=== PATIENT | female | born 1955 | race Caucasian/White ===

== ENCOUNTER 2016-08-31 07:45 | Inpatient (IN) ==
[2016-08-31] MEDS ORDERED: SODIUM CHLORIDE 0.9% 1,000 ML IV STA (08:19)
[2016-08-31] MEDS ORDERED: LOPERAMIDE 2 MG CAPSULE PO STA (08:19)
[2016-08-31] MEDS ORDERED: HYDROmorphone 2 MG/1 ML VIAL IV STA (08:19)
[2016-08-31] MEDS ORDERED: ONDANSETRON 4 MG/2 ML VIAL IV STA (08:19)
[2016-08-31] MEDS ORDERED: PROMETHAZINE 25 MG/1 ML VIAL IM STA (08:42)
[2016-08-31] MEDS ORDERED: MEPERIDINE 25 MG/1 ML VIAL IV STA (08:44)
[2016-08-31] MEDS ORDERED: MEPERIDINE 25 MG/1 ML VIAL ONE (08:47)
[2016-08-31] MEDS ORDERED: PROMETHAZINE 25 MG/1 ML VIAL ONE (08:47)
--- NOTE | 2016-08-31 08:50 | Emergency Department Note ---
Isaac Park Meredith, am scribing for, and in the presence of, Mazin Lenz MD 08: 18. Yoanna Park James D, MD, personally performed the services described in this documentation, ascribed by Reina Gray in my presence, and it is both accurate and complete [id number] . Arrival - Arrival Chief Complaint: Nausea/Vomiting/Diarrhea Stated Complaint: arms tingling,n/v,fever,chills ED Nursing Triage Note: n/v/d that started last night with abd cramping and chills. has a hx of mastacitic colitis. Mode of Arrival: Ambulatory Limitations: No Limitations Source: Patient, Old Records Reviewed, RN Notes Reviewed Time Seen by Provider: 08/31/16 08:17 - History of Present Illness HPI Narrative: Pt is a 61 y/o white female reporting to the ED with c/o nausea, vomiting, and diarrhea which onset last night. She confirms abdominal cramping and chills but denies any hematochezia, melena, or hematemesis. Pt has a history of HTN, ulcerative colitis, colon cancer, and mast cell disease. Onset (ago): hour(s) Consistency: intermittent Quality: cramping Allergies/Adverse Reactions: Allergies Allergy/AdvReac Type Severity Reaction Status Date / Time acetaminophen [From Lortab] Allergy Severe RASH Verified 07/10/15 20:20 butorphanol [From Stadol] Allergy Severe Headache Verified 07/10/15 20:20 hydrocodone [From Lortab] Allergy Severe RASH Verified 07/10/15 20:20 Hydromorphone [From Dilaudid] Allergy Severe Headache Verified 07/10/15 20:20 ketorolac [From Toradol] Allergy Severe RASH Verified 07/10/15 20:20 morphine Allergy Severe Headache Verified 07/10/15 20:20 ondansetron Allergy Severe RASH Verified 07/10/15 20:20 [From Zofran (as hydrochloride)] Sulfa (Sulfonamide Allergy Severe RASH Verified 07/10/15 20:20 Antibiotics) levothyroxine sodium Allergy Fever Verified 07/10/15 20:20 [From Synthroid] Home Medications: Home Medications Medication Instructions Recorded Confirmed Type Budesonide Cap [Entocort EC] 3 mg PO TID 04/16/15 08/31/16 History Cyclobenzaprine [Flexeril] 10 mg PO BEDTIME 04/16/15 08/31/16 History Dicyclomine Cap/Tab [Bentyl 10 mg PO TID 04/16/15 08/31/16 History Cap/Tab] Cyanocobalamin (Vitamin B-12) 1,000 mcg IJ Q28D 04/13/16 08/31/16 History [Cyanocobalamin Injection] Lisinopril 20 mg PO DAILY 04/13/16 08/31/16 History Zolpidem Tartrate 10 mg PO BEDTIME 04/13/16 08/31/16 History Famotidine Tab [Pepcid Tab] 20 mg PO BID tablet 04/27/16 08/31/16 Rx Meperidine Tab [Demerol Tab] 50 mg PO Q6H PRN #0 tablet 04/27/16 08/31/16 Rx PARoxetine [Paxil] 10 mg PO DAILY #30 tablet 04/27/16 08/31/16 Rx Pantoprazole Tab [Protonix Tab] 40 mg PO DAILY #30 tablet 04/27/16 08/31/16 Rx Promethazine Tab [Phenergan Tab] 25 mg PO Q6H PRN #20 tablet 04/27/16 08/31/16 Rx Cetirizine Tab [ZyrTEC Tab] 10 mg PO DAILY PRN 08/31/16 08/31/16 History Review of System - Review of System 12 point system: reviewed and no additional remarkable complaints except as stated - Review of System Constitutional: Present: as per HPI, chills Gastrointestinal: Present: as per HPI, abdominal pain (cramping), nausea, vomiting, diarrhea. Absent: hematemesis, melena, hematochezia Medical,Surgical,& Family Hx - Medical History Cardio: History of: Hypertension Gastrointestinal: History of: Ulcerative Colitis, GI Problems (colon ca) Other: History of: Miscellaneous Medical Problems (MAST CELL DISEASE) - Family History Family History: Reports;: Family Heart Disease - Social History Smoking Status: Never smoker Exam Physical Examination: GENERAL: This is a well-nourished, well-developed female in no apparent distress. VITAL SIGNS: Temperature: 98.7, Pulse: 92, Respirations: 18, Blood pressure: 138 /90, O2 Saturation: 96 HEENT: Head is normocephalic and atraumatic. Pupils are equally round and reactive to light. Extraocular movement are intact. Dry mucous membranes. NECK: Neck is soft and supple without tenderness. There are no masses. There is no lymphadenopathy. LUNGS: Lungs are clear to auscultation bilaterally. Chest rises symmetrically. There is no chest wall tenderness. CV: Heart is regular rate and rhythm without murmurs, rubs, or gallops. ABDOMEN: Abdomen is soft with minimal tenderness. There are no abnormal masses palpated. There is no organomegaly. Bowel sounds are present and active. SKIN: Skin is warm and dry. No rash. EXTREMITIES: Patient has full range of motion without tenderness. There is no pedal edema. NEUROLOGIC: Awake, alert, and oriented x4. Cranial nerves II through XII are grossly intact. There are no motorsensory deficits. PSYCHIATRIC: Normal affect. Normal mood. Vital Signs: Vital Signs Temperature 98.7 F 08/31/16 09:22 Pulse Rate 74 08/31/16 10:27 Respiratory Rate 16 08/31/16 10:27 Blood Pressure 118/71 08/31/16 10:27 O2 Sat by Pulse Oximetry 98 08/31/16 10:27 Course - Consultations Consultation #1: Discussed with Dr. Bruno Garcia. Patient will be admitted to his service. Initial orders written for him. Time: 10:46 Results - Labs CBC & BMP: 08/31/16 08:46 08/31/16 08:46 Lab Results: I have reviewed the patients labs Labs: Laboratory Tests 08/31/16 08:46 WBC 7.5 RBC 4.27 Hgb 12.4 Hct 37.9 Plt Count 187 Neut % (Auto) 80.6 H Lymph % (Auto) 13.7 L Lymph # (Auto) 1.0 L Laboratory Tests 08/31/16 08:46 Sodium 145 Potassium 3.7 Chloride 108 H Carbon Dioxide 27 BUN 8 Creatinine 0.70 Laboratory Tests 08/31/16 09:40 Urine pH 8.0 Ur Specific [place] 1.005 Urine Ketones 25 Urine Urobilinogen 0.2 Urine Leukocytes Trace Urine RBC 0-2 Urine WBC 0-3 Urine WBC Clumps 0-1 Ur Squamous Epith Cells Occasional Urine Mucus Slight Influenza A: neg Influenza B: neg - Diagnostic Findings Procedure: Abdominal x-ray: report reviewed by me, image reviewed by me (No abnormality. Nonspecific gas pattern, no free air, gas in the rectum.) Disposition Clinical Impression: Mast cell colitis Case discussed with: patient Condition: Stable
[2016-08-31 09:00] LABS: Basophils % 0.3 % (0.0-0.8); Eosinophils % 0.1 % (0.00-10.9); Hematocrit 37.9 VOL% (35.7-47.0); Hemoglobin 12.4 GM/DL (12.0-16.0); Immature Granulocytes % 0.4 %; Immature Granulocytes Absolute 0.03 #; Lymphocytes % 13.7 % (21.3-54.2); Mean Corpuscular HGB Conc 32.7 GM/DL (32-36); Mean Corpuscular Hemoglobin 29 PG (27-34); Mean Corpuscular Volume 88.8 FL (87-102); Mean Platelet Volume 9.7 FL (9.6-12.0); Monocytes # 0.4 10*3/uL (0.11-0.8); Monocytes % 4.9 % (1.7-12.7); Neutrophils # 6.1 10*3/uL (1.4-7.4); Neutrophils % 80.6 % (38.7-73.9); Platelet Count 187 T/CUMM (130-400); Red Blood Count 4.27 MC/CUMM (3.8-5.5); Red Cell Distribution Width 13.4 % (9.3-17.3); White Blood Count 7.5 T/CUMM (4-12)
[2016-08-31] MEDS ORDERED: LOPERAMIDE 2 MG CAPSULE ONE (09:01)
--- NOTE | 2016-08-31 09:05 | XRay Report ---
XR abdomen 2V Indication: Abdominal pain, mast cell colitis Comparison: 20 on March 2016 Findings: No free fluid or free air seen. The bowel gas pattern appears within normal limits. No abnormal calcifications are present. Multiple clips are present from prior surgeries. No other abnormality is identified. Impression: No evidence of abnormality demonstrated. PROCEDURE INTERPRETED AT [facility] DEPARTMENT OF RADIOLOGY Final Report Signed by: Dr. Sam Bowens
[2016-08-31 09:33] LABS: Bilirubin,Total 0.6 MG/DL (0.2-1.0); Calcium 9.3 MG/DL (8.5-10.1); Osmolality,Calculated 285.7 MOS/KG (273-304); Potassium 3.7 MMOL/L (3.5-5.1); Total Protein 7.2 G/DL (6.4-8.3)
[2016-08-31] MEDS ORDERED: fentaNYL 100 MCG/2 ML VIAL ONE (10:03)
[2016-08-31] MEDS ORDERED: fentaNYL 100 MCG/2 ML VIAL IV STA (10:06)
[2016-08-31 10:20] LABS: Apearance,Urine Clear (Clear); Glucose,Urine (UA) Negative (Negative); Ketones,Urine 25 mg/dL (Negative); Protein,Urine Negative; Urine Color Yellow (Yellow); Urine Specific Gravity 1.005 (1.001-1.035)
[2016-08-31 10:21] LABS: Bilirubin,Urine Negative (Negative); Blood, Urine Negative (Negative); Nitrite,Urine Negative (Negative); RBC,Urine 0-2 /HPF (0-4); Squamous Epithelial Cell,Urine Occasional /HPF (0-10); Urine Urobilinogen 0.2 EU/DL (0.2-1.0); WBC,Urine 0-3 /HPF (0-6)
[2016-08-31 10:22] LABS: Mucus,Urine Slight /LPF (Occasional)
[2016-08-31] MEDS: SODIUM CHLORIDE 0.9% 1,000 ML IV SCH (14:45)
[2016-08-31] MEDS ORDERED: fentaNYL 100 MCG/2 ML VIAL IV PRN (15:03)
[2016-08-31] MEDS ORDERED: ACETAMINOPHEN 325 MG TABLET PO PRN (15:03)
--- NOTE | 2016-08-31 17:15 | Family Practice History&Phys ---
Assessment and Plan (1) Colitis Status: Chronic Assessment and plan: 08/31/2016: CT the abdomen pelvis will be ordered. Will be given IV antibiotics due to her tenderness and rebound. Stool studies will be ordered as well as CRP and sed rate. Current Visit: No History of Present Illness Chief complaint: Abdominal pain History of present illness: Ms. Romo is a 61 year old female Patient 61-year-old white female presents to the emergency room complaining of abdominal pain and intractable nausea and vomiting. Patient states she has not had any fever or chills associated with this. Patient's laboratory work on admission was unremarkable. She states the pain is typical of her prior bouts of colitis. She has not seen any blood or mucus in her stool. Patient states she was doing fine yesterday and had no indication of any GI problems. Home Medications Medication Instructions Recorded Confirmed Type Budesonide Cap [Entocort EC] 3 mg PO TID 04/16/15 08/31/16 History Cyclobenzaprine [Flexeril] 10 mg PO BEDTIME 04/16/15 08/31/16 History Dicyclomine Cap/Tab [Bentyl 10 mg PO TID 04/16/15 08/31/16 History Cap/Tab] Cyanocobalamin (Vitamin B-12) 1,000 mcg IJ Q28D 04/13/16 08/31/16 History [Cyanocobalamin Injection] Lisinopril 20 mg PO DAILY 04/13/16 08/31/16 History Zolpidem Tartrate 10 mg PO BEDTIME 04/13/16 08/31/16 History Famotidine Tab [Pepcid Tab] 20 mg PO BID tablet 04/27/16 08/31/16 Rx Meperidine Tab [Demerol Tab] 50 mg PO Q6H PRN #0 tablet 04/27/16 08/31/16 Rx PARoxetine [Paxil] 10 mg PO DAILY #30 tablet 04/27/16 08/31/16 Rx Pantoprazole Tab [Protonix Tab] 40 mg PO DAILY #30 tablet 04/27/16 08/31/16 Rx Promethazine Tab [Phenergan Tab] 25 mg PO Q6H PRN #20 tablet 04/27/16 08/31/16 Rx Cetirizine Tab [ZyrTEC Tab] 10 mg PO DAILY PRN 08/31/16 08/31/16 History Allergies Allergy/AdvReac Type Severity Reaction Status Date / Time acetaminophen [From Lortab] Allergy Severe RASH Verified 07/10/15 20:20 butorphanol [From Stadol] Allergy Severe Headache Verified 07/10/15 20:20 hydrocodone [From Lortab] Allergy Severe RASH Verified 07/10/15 20:20 Hydromorphone [From Dilaudid] Allergy Severe Headache Verified 07/10/15 20:20 ketorolac [From Toradol] Allergy Severe RASH Verified 07/10/15 20:20 morphine Allergy Severe Headache Verified 07/10/15 20:20 ondansetron Allergy Severe RASH Verified 07/10/15 20:20 [From Zofran (as hydrochloride)] Sulfa (Sulfonamide Allergy Severe RASH Verified 07/10/15 20:20 Antibiotics) levothyroxine sodium Allergy Fever Verified 07/10/15 20:20 [From Synthroid] - Constitutional Constitutional: Absent: chills, fever(s), weakness, weight gain, weight loss - EENT Eyes: Absent: blurry vision Ears: Absent: decreased hearing, ear pain Nose, mouth and throat: Absent: hoarseness, nasal congestion, sinus pressure, sore throat - Cardiovascular Cardiovascular: Absent: chest pain at rest, chest pain with activity, palpitations, PND - Respiratory Respiratory: Absent: cough, dyspnea on exertion, wheezing - Gastrointestinal Gastrointestinal: Present: abdominal pain, cramping, diarrhea, nausea, vomiting. Absent: dyspepsia, dysphagia, hematochezia, melena - Genitourinary Genitourinary: Absent: dysuria, hematuria, urinary frequency, urinary incontinence - Musculoskeletal Musculoskeletal: Absent: back pain, muscle cramps - Neurological Neurological: Absent: confusion, focal weakness, numbness, paresthesias - Psychiatric Psychiatric: Absent: confusion, depression - Endocrine Endocrine: Absent: fatigue, polydipsia, polyphagia - Hematologic/Lymphatic Hematologic/Lymphatic: Absent: easy bleeding, easy bruising Medical,Surgical,& Family Hx - Medical History Cardio: History of: Hypertension Psychological: History of: Anxiety Disorders, Depression Neurology: History of: Migraine HEENT: History of: Ear Problem (hearing loss) Respiratory: History of: Pneumonia Genitourinary: History of: Recurring Urinary Tract Infections Gastrointestinal: History of: Ulcerative Colitis, GI Problems (colon ca 2001, Mast cell) Hematology: History of: Anemia Other: History of: Cancer (colon ca), Miscellaneous Medical Problems (MAST CELL DISEASE) - Surgical History Neurologic Surgeries: Patient denies: Neurologic Surgery HEENT Surgeries: Surgical HX of: Eye Surgery (left eye laser retina repair), Tonsilectomy & Adenoidectomy Abdominal Surgeries: Surgical HX of: Abdominal Surgery (2009), Appendectomy ( 1970), Cholecystectomy (2003), Colonoscopy, EGD Reproductive Surgeries: Surgical HX of;: Gynecologic Surgery, Tubal Ligation ( 1970) - Family History Family History: Reports;: Family Cancer (aunt ovarian ca, aunt lung ca), Family Heart Disease (father,mother), Family Hypertension (mother and father) - Social History Smoking Status: Never smoker Frequency of Alcohol Use: None Type of Drug Use: None Exam - Constitutional Vitals: Period Temp Pulse Resp BP Sys/Pearson Pulse Ox Last 24 Hr 98.6 F 76-83 16-22 126-158/79-99 96-100 Exam: Objective a well-developed white female who appears comfortable at present. Patient states her pain is markedly improved. Patient is able give an excellent history. HEENT: Pupils equal round and reactive to light. Mucous membranes are moist. The pharynx is benign. Neck: The neck is supple with no palpable masses or meningismus. Cardiovascular: Heart rate regular with no murmurs, gallops or rubs. Respiratory: The lungs clear to auscultation bilaterally with no rales, rhonchi or wheezes. Abdomen: The abdomen is diffusely tender patient is noted to have direct and slight rebound tenderness the left lower quadrant. There is no palpable hepatosplenomegaly or masses. Neurologic: Patient's cranial nerves are intact. She has symmetrical strength and sensation in all extremities. DTRs were deferred. Extremities: There is no calf swelling or tenderness. Musculoskeletal: There is no no joint swelling or tenderness. Results - Labs CBC & BMP: 08/31/16 08:46 08/31/16 08:46 Lab Results: I have reviewed the past 24 hour labs Quality Measures - Stroke Symptom Onset Unknown: No
[2016-08-31] MEDS: methylPREDNISolone SOD SUC 40 MG/1 ML VIAL IV SCH ×2 (17:23→20:08)
[2016-08-31] MEDS: LEVOFLOXACIN INJ 500 MG in PREMIX 1 EACH IV SCH (17:50)
--- NOTE | 2016-08-31 19:35 | CT Report ---
Exam: CT abdomen pelvis w con Date: 08/31/2016 5:15 PM Comparison: 04/22/2016 Indication: Severe abdominal pain, history of colon cancer Technique:[Sequential axial scans of the abdomen and pelvis were obtained following the ingestion of oral contrast and the injection of 100 cc Omnipaque 350. Coronal and sagittal 2-D reconstructions were obtained. Total DLP: 943.50.] Findings: Progressive atelectasis at the lung bases with chronic scarring and calcified granulomata. Elongation of the right lobe of the liver with prior cholecystectomy. Fairly stable dilatation of the bile ducts. CBD measures 14 mm in diameter. The spleen is normal in size with calcified granulomata. The pancreas, adrenal glands, and kidneys are stable in appearance. No renal or ureteral calculi are identified. Calcification in the wall in nondilated abdominal aorta with no adjacent adenopathy. Small hiatal hernia. Progressive dilatation of the small bowel with the largest loop measuring 29 mm. The wall of the small bowel appears thickened in the pelvis with surrounding free fluid. Only limited oral contrast reaches the colon with postoperative findings in the rectosigmoid colon. The appendix is not identified no evidence of definite appendicitis. Atrophic uterus with suboptimal demonstration of the ovaries. No definite urinary bladder pathology identified. Degenerative changes are noted. Impression: Progressive atelectasis/infiltration at the lung bases. Elongation on the right lobe of the liver with prior cholecystectomy and stable dilatation of bile ducts. Small hiatal hernia. Progressive dilatation of the small bowel with the largest loop measuring 29 mm. Thickening of the wall of the ileum in the pelvis with surrounding minimal to moderate free fluid. This finding could be related to infectious process or inflammatory bowel disease. Postoperative findings in the rectosigmoid colon with history of colon cancer. It is difficult to exclude possible recurrent disease with these findings. Only limited oral contrast reaches the colon with increased fecal material. Limited evaluation of the colon. Atrophic uterus with poor definition of the ovaries. Pelvic ultrasound may be helpful for further evaluation with the new ascites. PROCEDURE INTERPRETED AT [facility] DEPARTMENT OF RADIOLOGY Final Report Signed by: Dr. Sari Valdez
[2016-08-31] MEDS: PROMETHAZINE 25 MG/1 ML VIAL IM PRN (21:56)
[2016-08-31] MEDS: DOCUSATE SODIUM 100 MG CAPSULE PO SCH (21:59)
[2016-09-01] MEDS: SODIUM CHLORIDE 0.9% 1,000 ML IV SCH ×2 (00:51→10:07)
[2016-09-01] MEDS: methylPREDNISolone SOD SUC 40 MG/1 ML VIAL IV SCH ×4 (03:18→21:22)
[2016-09-01] MEDS: MEPERIDINE 25 MG/1 ML VIAL IV PRN ×3 (03:19→21:25)
[2016-09-01 06:53] LABS: Hemoglobin 11.1 GM/DL (12.0-16.0); Immature Granulocytes % 0.4 %; Immature Granulocytes Absolute 0.02 #; Lymphocytes # 0.6 10*3/uL (1.4-4.0); Lymphocytes % 13.7 % (21.3-54.2); Mean Corpuscular HGB Conc 32.6 GM/DL (32-36); Mean Corpuscular Hemoglobin 29 PG (27-34); Mean Corpuscular Volume 87.6 FL (87-102); Mean Platelet Volume 10.2 FL (9.6-12.0); Monocytes # 0.1 10*3/uL (0.11-0.8); Monocytes % 1.5 % (1.7-12.7); Neutrophils # 3.9 10*3/uL (1.4-7.4); Neutrophils % 84.4 % (38.7-73.9); Platelet Count 196 T/CUMM (130-400); Red Blood Count 3.88 MC/CUMM (3.8-5.5); Red Cell Distribution Width 13.5 % (9.3-17.3); White Blood Count 4.6 T/CUMM (4-12)
[2016-09-01 07:23] LABS: Albumin 3.2 G/DL (3.4-5.0); Bilirubin,Total 0.6 MG/DL (0.2-1.0); Calcium 8.2 MG/DL (8.5-10.1); Osmolality,Calculated 291.4 MOS/KG (273-304); Potassium 4.1 MMOL/L (3.5-5.1); Total Protein 6.4 G/DL (6.4-8.3)
--- NOTE | 2016-09-01 08:12 | Family Practice Progress Note ---
Family Practice - PN: Subj Interval history: Patient states she had a fitful night due to her abdominal pain. Patient states she somewhat improved this morning but she still nauseated and has no appetite. Her CT scan done yesterday showed small bowel dilatation and some mesenteric stranding. She did not have any fever in the night. She appears to have enteritis of some sort. Stool cultures were ordered. Exam (Progress Note) - Constitutional Vitals: Period Temp Pulse Resp BP Sys/Pearson Pulse Ox Last 24 Hr 98.2 F-98.6 F 69-93 16-22 108-158/77-99 95-100 Exam: Objective a well-developed pleasant white female in no acute distress. She is comfortable in bed is able to give a good history. Cardiovascular: Heart rate is regular without murmurs or gallops. Respiratory: Lungs clear to auscultation bilaterally. Abdomen: Patient has diffuse abdominal tenderness directly. Bowel sounds were slightly increased. Results - Labs CBC & BMP: 09/01/16 05:35 09/01/16 05:35 Lab Results: I have reviewed the past 24 hour labs Assessment and Plan (1) Colitis Status: Chronic Assessment and plan: 08/31/2016: CT the abdomen pelvis will be ordered. Will be given IV antibiotics due to her tenderness and rebound. Stool studies will be ordered as well as CRP and sed rate. 09/01/2016: We will continue present IV antibiotic therapy. Stool cultures have been ordered. Current Visit: No (2) Enteritis Status: Acute Assessment and plan: 09/01/2016: We will consult Dr. Ziggy Espinosa. Current Visit: Yes Quality Measures - Stroke Symptom Onset Unknown: No
[2016-09-01] MEDS ORDERED: MEPERIDINE 25 MG/1 ML VIAL IV PRN (09:00)
[2016-09-01] MEDS: DICYCLOMINE 10 MG CAPSULE PO SCH ×3 (10:01→21:22)
[2016-09-01] MEDS: PANTOPRAZOLE 40 MG TABLET PO SCH (10:02)
[2016-09-01] MEDS: CETIRIZINE 10 MG TABLET PO PRN (10:02)
[2016-09-01] MEDS: PARoxetine 10 MG TABLET PO SCH (10:02)
[2016-09-01] MEDS: LISINOPRIL 20 MG TABLET PO SCH (10:02)
[2016-09-01] MEDS: BUDESONIDE 3 MG CAPSULE PO SCH ×3 (10:03→21:22)
[2016-09-01] MEDS: DOCUSATE SODIUM 100 MG CAPSULE PO SCH ×2 (10:04→21:25)
--- NOTE | 2016-09-01 11:10 | Gastrointestinal Consult Note ---
<Naima Soliman - Last Filed: 09/01/16 11:00> Assessment and Plan (1) Colitis Status: Chronic Assessment and plan: 09/01-Two day history of abd pain with N/V, diarrhea. Hx of mast cell colitis. CT findings noted with progressive small bowel dilation, limited contrast in colon. Plan and addendum to follow by Dr Espinosa Current Visit: No History of Present Illness Chief complaint: Abd pain, N/V, diarrhea History of present illness: Ms. Romo is a 61 year old female who presented to the hospital with sudden onset of nausea, vomiting, abdominal pain, and diarrhea. Pt states Monday she was in her usual state of health, had an active day, however that night she began not feeling well. States that she had an onset of abdominal pain and cramping across her abdomen and began having nausea and vomiting. She denies any coffee ground or hematemesis. She states she also had onset of diarrhea and reports having multiple stools since onset. Denies any melena or hematochezia with this. She does not recall fever but did have chills associated with tihs. She states the symptoms did not improve therefore her daughter brought her to the hospital yesterday morning. She denies any recent exposure to others who have been ill. States she takes her Entocort and Zyrtec daily. She has a history of mast cell colitis and states this feels like a typical episode for her. She describes the abdominal pain as "broken glass" sensation in her abdomen. CRP mildly elevated at 0.56. CT of abdomen with contrast shows progressive dilation of the small bowel with largest loop measuring 29mm, thickening of the wall of the ileum in pelvis with free fluid. She has a prior history of colon cancer in 2002. Last known C-scope was in 2007 with no acute findings, EGD 2008 with findings of hiatal hernia. Last hospitalization was in Mar 2016 for exacerbation of abd pain with UTI. UA is clear at this time. Home Medications Medication Instructions Recorded Confirmed Type Budesonide Cap [Entocort EC] 3 mg PO TID 04/16/15 08/31/16 History Cyclobenzaprine [Flexeril] 10 mg PO BEDTIME 04/16/15 08/31/16 History Dicyclomine Cap/Tab [Bentyl 10 mg PO TID 04/16/15 08/31/16 History Cap/Tab] Cyanocobalamin (Vitamin B-12) 1,000 mcg IJ Q28D 04/13/16 08/31/16 History [Cyanocobalamin Injection] Lisinopril 20 mg PO DAILY 04/13/16 08/31/16 History Zolpidem Tartrate 10 mg PO BEDTIME 04/13/16 08/31/16 History Famotidine Tab [Pepcid Tab] 20 mg PO BID tablet 04/27/16 08/31/16 Rx Meperidine Tab [Demerol Tab] 50 mg PO Q6H PRN #0 tablet 04/27/16 08/31/16 Rx PARoxetine [Paxil] 10 mg PO DAILY #30 tablet 04/27/16 08/31/16 Rx Pantoprazole Tab [Protonix Tab] 40 mg PO DAILY #30 tablet 04/27/16 08/31/16 Rx Promethazine Tab [Phenergan Tab] 25 mg PO Q6H PRN #20 tablet 04/27/16 08/31/16 Rx Cetirizine Tab [ZyrTEC Tab] 10 mg PO DAILY PRN 08/31/16 08/31/16 History Allergies Allergy/AdvReac Type Severity Reaction Status Date / Time acetaminophen [From Lortab] Allergy Severe RASH Verified 07/10/15 20:20 butorphanol [From Stadol] Allergy Severe Headache Verified 07/10/15 20:20 hydrocodone [From Lortab] Allergy Severe RASH Verified 07/10/15 20:20 Hydromorphone [From Dilaudid] Allergy Severe Headache Verified 07/10/15 20:20 ketorolac [From Toradol] Allergy Severe RASH Verified 07/10/15 20:20 morphine Allergy Severe Headache Verified 07/10/15 20:20 ondansetron Allergy Severe RASH Verified 07/10/15 20:20 [From Zofran (as hydrochloride)] Sulfa (Sulfonamide Allergy Severe RASH Verified 07/10/15 20:20 Antibiotics) levothyroxine sodium Allergy Fever Verified 07/10/15 20:20 [From Synthroid] Medical,Surgical,& Family Hx - Medical History Cardio: History of: Hypertension Psychological: History of: Anxiety Disorders, Depression Neurology: History of: Migraine HEENT: History of: Ear Problem (hearing loss) Respiratory: History of: Pneumonia Genitourinary: History of: Recurring Urinary Tract Infections Gastrointestinal: History of: Ulcerative Colitis, GI Problems (colon ca 2000, Mast cell) Hematology: History of: Anemia Other: History of: Cancer (colon ca), Miscellaneous Medical Problems (MAST CELL DISEASE) - Surgical History Neurologic Surgeries: Patient denies: Neurologic Surgery HEENT Surgeries: Surgical HX of: Eye Surgery (left eye laser retina repair), Tonsilectomy & Adenoidectomy Abdominal Surgeries: Surgical HX of: Abdominal Surgery (2009), Appendectomy ( 1970), Cholecystectomy (2003), Colonoscopy, EGD Reproductive Surgeries: Surgical HX of;: Gynecologic Surgery, Tubal Ligation ( 1970) - Family History Family History: Reports;: Family Cancer (aunt ovarian ca, aunt lung ca), Family Heart Disease (father,mother), Family Hypertension (mother and father) - Social History Smoking Status: Never smoker Frequency of Alcohol Use: None Type of Drug Use: None 12 point system: reviewed and no additional remarkable complaints except as stated - Constitutional Constitutional: Present: as per HPI, chills - EENT Eyes: Present: as per HPI Ears: Present: as per HPI Nose, mouth and throat: Present: as per HPI - Cardiovascular Cardiovascular: Present: as per HPI - Respiratory Respiratory: Present: as per HPI - Gastrointestinal Gastrointestinal: Present: as per HPI, abdominal pain, diarrhea, loose stools, nausea, vomiting - Genitourinary Genitourinary: Present: as per HPI - Musculoskeletal Musculoskeletal: Present: as per HPI - Neurological Neurological: Present: as per HPI - Psychiatric Psychiatric: Present: as per HPI - Endocrine Endocrine: Present: as per HPI - Hematologic/Lymphatic Hematologic/Lymphatic: Present: as per HPI Exam - Constitutional Vitals: Period Temp Pulse Resp BP Sys/Pearson Pulse Ox Last 24 Hr 97.3 F-98.6 F 69-93 16-22 108-158/77-99 95-100 General appearance: normal weight, no acute distress - Head Head exam: Present: normal inspection, normocephalic - Eye Eye exam: Present: other (lids and conjunctiva unremarkable). Absent: scleral icterus - ENT ENT exam: Present: normal exam, normal oropharynx - Neck Neck exam: Present: normal inspection - Respiratory Respiratory exam: Present: clear to auscultation bilaterally. Absent: rales, rhonchi, wheezes - Cardiovascular Cardiovascular exam: Present: regular rate and rhythm. Absent: diastolic murmur , JVD, systolic murmur - GI/Abdominal GI/Abdominal exam: Present: normal bowel sounds, soft. Absent: ascites, distended, mass, organomegaly, tenderness - Extremities Exam Extremities exam: Present: normal inspection, full ROM - Back Exam Back exam: Present: normal inspection - Neurological Exam Neurological exam: Present: alert, oriented X3 - Psychiatric Psychiatric exam: Present: normal affect, normal mood - Skin Skin exam: Present: normal color, warm, dry Results - Labs CBC & BMP: 09/01/16 05:35 09/01/16 05:35 Lab Results: I have reviewed the past 24 hour labs Quality Measures - Stroke Symptom Onset Unknown: No <Ziggy Espinosa - Last Filed: 09/01/16 17:08> History of Present Illness History of present illness: Ms. Romo is a 61 year old female Exam - Constitutional Vitals: Period Temp Pulse Resp BP Sys/Pearson Pulse Ox Last 24 Hr 97.3 F-98.4 F 69-93 16-20 108-142/77-94 95-99 Results - Labs CBC & BMP: 09/01/16 05:35 09/01/16 05:35
[2016-09-01] MEDS: PROMETHAZINE 25 MG/1 ML VIAL IM PRN ×2 (16:20→21:41)
[2016-09-01] MEDS: LEVOFLOXACIN INJ 500 MG in PREMIX 1 EACH IV SCH (18:21)
[2016-09-01] MEDS: CYCLOBENZAPRINE 10 MG TABLET PO SCH (21:22)
[2016-09-01] MEDS: ZALEPLON 5 MG CAPSULE PO SCH (21:22)
[2016-09-02] MEDS: SODIUM CHLORIDE 0.9% 1,000 ML IV SCH ×4 (05:19→21:36)
[2016-09-02] MEDS: methylPREDNISolone SOD SUC 40 MG/1 ML VIAL IV SCH ×4 (05:20→21:26)
[2016-09-02] MEDS: DOCUSATE SODIUM 100 MG CAPSULE PO SCH ×2 (09:15→21:39)
[2016-09-02] MEDS: PANTOPRAZOLE 40 MG TABLET PO SCH (09:15)
[2016-09-02] MEDS: PARoxetine 10 MG TABLET PO SCH (09:15)
[2016-09-02] MEDS: LISINOPRIL 20 MG TABLET PO SCH (09:15)
[2016-09-02] MEDS: CETIRIZINE 10 MG TABLET PO PRN (09:15)
[2016-09-02] MEDS: DICYCLOMINE 10 MG CAPSULE PO SCH ×3 (09:15→21:40)
[2016-09-02] MEDS: BUDESONIDE 3 MG CAPSULE PO SCH ×3 (09:16→21:43)
--- NOTE | 2016-09-02 09:52 | Gastrointestinal Progress Note ---
<JourdanNaima Randell - Last Filed: 09/02/16 09:50> Assessment and Plan (1) Colitis Status: Chronic Assessment and plan: 09/02-Abd pain improved, no N/V. Tolerating diet. Will advance to soft diet and continue to monitor. Plan and addendum to follow by Dr Espinosa. 09/01-Two day history of abd pain with N/V, diarrhea. Hx of mast cell colitis. CT findings noted with progressive small bowel dilation, limited contrast in colon. Plan and addendum to follow by Dr Espinosa Current Visit: No Gastroenterology - PN: Subj Interval history: CC: Abd pain Pt is seen, awake and alert, stating she is feeling better today. She states the pain is improved and is tolerating clear liquids well. She states that she is hungry and would like to try more to eat at this time. Denies any nausea, vomiting or abdominal pain. Abdomen is soft, nontender to light palpation. Afebrile. ROS: Denies SOB or chest pain Exam (Progress Note) - Constitutional Vitals: Period Temp Pulse Resp BP Sys/Pearson Pulse Ox Last 24 Hr 97.4 F-98.5 F 76-88 18-20 116-142/58-94 92-97 General appearance: normal weight, no acute distress - Head Head exam: Present: normal inspection, normocephalic - Eye Eye exam: Present: other (lids and conjunctiva unremarkable). Absent: scleral icterus - ENT ENT exam: Present: normal exam, normal oropharynx - Neck Neck exam: Present: normal inspection - Respiratory Respiratory exam: Present: clear to auscultation bilaterally. Absent: rales, rhonchi, wheezes - Cardiovascular Cardiovascular exam: Present: regular rate and rhythm. Absent: diastolic murmur , JVD, systolic murmur - GI/Abdominal GI/Abdominal exam: Present: normal bowel sounds, soft. Absent: ascites, distended, mass, organomegaly, tenderness - Extremities Exam Extremities exam: Present: normal inspection, full ROM - Back Exam Back exam: Present: normal inspection - Neurological Exam Neurological exam: Present: alert, oriented X3 - Psychiatric Psychiatric exam: Present: normal affect, normal mood - Skin Skin exam: Present: normal color, warm, dry Results - Labs CBC & BMP: 09/01/16 05:35 09/01/16 05:35 Lab Results: I have reviewed the past 24 hour labs <Ziggy Espinosa - Last Filed: 09/02/16 13:31> Exam (Progress Note) - Constitutional Vitals: Period Temp Pulse Resp BP Sys/Pearson Pulse Ox Last 24 Hr 97.4 F-98.4 F 73-89 20-20 116-152/58-94 92-97 Results - Labs CBC & BMP: 09/01/16 05:35 09/01/16 05:35
[2016-09-02] MEDS: LEVOFLOXACIN INJ 500 MG in PREMIX 1 EACH IV SCH (21:25)
[2016-09-02] MEDS: CYCLOBENZAPRINE 10 MG TABLET PO SCH (21:39)
[2016-09-02] MEDS: PROMETHAZINE 25 MG/1 ML VIAL IM PRN (21:40)
[2016-09-02] MEDS: ZALEPLON 5 MG CAPSULE PO SCH (21:40)
[2016-09-02] MEDS: MEPERIDINE 25 MG/1 ML VIAL IV PRN (21:57)
--- NOTE | 2016-09-02 22:09 | Internal Med Progress Note ---
Assessment and Plan (1) Enteritis Status: Acute Current Visit: Yes (2) Abdominal pain Status: Acute Current Visit: Yes Qualifiers: Abdominal location: lower abdomen, unspecified Qualified Code(s): R10.30 - Lower abdominal pain, unspecified (3) Dehydration, moderate Status: Acute Current Visit: Yes (4) Nausea vomiting and diarrhea Status: Acute Current Visit: Yes (5) Colitis Status: Chronic Current Visit: Yes Internal Medicine - PN: Subj Interval history: This is a 61 year old female patient of Dr. Noris Garcia with history of ulcerative colitis, colon cancer, Mast cell disease, recurrent UTI, who is here with nausea, vomiting, diarrhea. She feels somewhat better today, but will continue clear fluid diet for now. Exam (Progress Note) - Constitutional Vitals: Period Temp Pulse Resp BP Sys/Pearson Pulse Ox Last 24 Hr 98.0 F-98.4 F 73-89 20-20 121-152/58-90 92-97 General appearance: no acute distress - Head Head exam: Present: normocephalic - Eye Eye exam: Present: EOMI - Respiratory Respiratory exam: Present: clear to auscultation bilaterally - Cardiovascular Cardiovascular exam: Present: regular rate and rhythm - GI/Abdominal GI/Abdominal exam: Present: tenderness (across abdomen), soft - Extremities Exam Extremities exam: Absent: edema - Neurological Exam Neurological exam: Present: alert, oriented X3 - Psychiatric Psychiatric exam: Present: normal mood - Skin Skin exam: Present: warm, dry Results - Labs CBC & BMP: 09/01/16 05:35 09/01/16 05:35 Quality Measures - Stroke Symptom Onset Unknown: No
[2016-09-03] MEDS: methylPREDNISolone SOD SUC 40 MG/1 ML VIAL IV SCH ×4 (03:20→21:25)
[2016-09-03 05:33] LABS: Basophils % 0.2 % (0.0-0.8); Hematocrit 30.3 VOL% (35.7-47.0); Hemoglobin 9.6 GM/DL (12.0-16.0); Immature Granulocytes % 1.2 %; Immature Granulocytes Absolute 0.08 #; Lymphocytes # 0.5 10*3/uL (1.4-4.0); Lymphocytes % 8.4 % (21.3-54.2); Mean Corpuscular HGB Conc 31.7 GM/DL (32-36); Mean Corpuscular Hemoglobin 29 PG (27-34); Mean Corpuscular Volume 90.2 FL (87-102); Mean Platelet Volume 10.3 FL (9.6-12.0); Monocytes # 0.2 10*3/uL (0.11-0.8); Monocytes % 2.5 % (1.7-12.7); Neutrophils # 5.7 10*3/uL (1.4-7.4); Neutrophils % 87.7 % (38.7-73.9); Platelet Count 135 T/CUMM (130-400); Red Blood Count 3.36 MC/CUMM (3.8-5.5); Red Cell Distribution Width 13.8 % (9.3-17.3); White Blood Count 6.5 T/CUMM (4-12)
[2016-09-03 06:05] LABS: Alanine Aminotransferase 32 U/L (13-56); Albumin 2.8 G/DL (3.4-5.0); Alkaline Phosphatase 67 U/L (45-117); Aspartate Amino Transferase 19 U/L (0-37); Bilirubin,Total < 0.39 MG/DL (0.2-1.0); Blood Urea Nitrogen 9 MG/DL (7-18); Calcium 8.1 MG/DL (8.5-10.1); Glucose 118 MG/DL (74-106); Magnesium 1.8 MG/DL (1.8-2.4); Osmolality,Calculated 293.3 MOS/KG (273-304); Potassium 3.5 MMOL/L (3.5-5.1); Sodium 148 MMOL/L (136-145); Total Protein 5.5 G/DL (6.4-8.3)
[2016-09-03] MEDS: PANTOPRAZOLE 40 MG TABLET PO SCH (08:59)
[2016-09-03] MEDS: DICYCLOMINE 10 MG CAPSULE PO SCH ×3 (08:59→22:07)
[2016-09-03] MEDS: PARoxetine 10 MG TABLET PO SCH (08:59)
[2016-09-03] MEDS: BUDESONIDE 3 MG CAPSULE PO SCH ×3 (08:59→22:07)
[2016-09-03] MEDS: LISINOPRIL 20 MG TABLET PO SCH (08:59)
[2016-09-03] MEDS: DOCUSATE SODIUM 100 MG CAPSULE PO SCH ×2 (09:01→22:08)
[2016-09-03] MEDS: SODIUM CHLORIDE 0.9% 1,000 ML IV SCH ×2 (09:02→15:11)
--- NOTE | 2016-09-03 09:58 | Family Practice Progress Note ---
Family Practice - PN: Subj Interval history: Patient seen this morning she is resting well. She has difficulty hearing but is able to understand when you look at her and talk. Is alert and oriented and states she feels some better. Her CBC is grossly normal. BNP is normal except slightly elevated glucose. Her sodium is slightly elevated as well 148. We'll continue to monitor and continue current medicines at this time. Her weight is stable Exam (Progress Note) - Constitutional Vitals: Period Temp Pulse Resp BP Sys/Pearson Pulse Ox Last 24 Hr 97.7 F-98.1 F 63-89 16-20 139-152/67-90 93-99 Generally stable vital signs are stable at this time. HEENT pupils equal reactive to light neck is supple trachea midline she is artery. Cardiovascular rate regular no gallop or rub Lungs are clear bilaterally Abdomen soft nondistended Results - Labs CBC & BMP: 09/03/16 04:51 09/03/16 04:51 Quality Measures - Stroke Symptom Onset Unknown: No
--- NOTE | 2016-09-03 12:32 | Gastrointestinal Progress Note ---
Assessment and Plan (1) Enteritis Status: Acute Assessment and plan: Oriented Dr. Solo's notes this patient has a history of ulcerative colitis in the colon although most recently biopsies demonstrated mastocytic colitis-- my suggestion would be to look at p-ANCA and ASCA antibodies is a lingering serology evidence of ulcerative colitis versus Crohn's respectively. She has had some response to Entocort in the past and we'll need to believe she was respond to steroids and general again. Currently the patient is on Solu-Medrol with minimal improvement. She is wondering if this is essentially different from the Entocort she was previously on Current Visit: Yes (2) Nausea vomiting and diarrhea Status: Acute Assessment and plan: Improved, patient is not taking in by mouth intake routinely. Current Visit: Yes (3) Colitis Status: Chronic Assessment and plan: Diarrhea is under control for the present time. Will continue to observe. ASCA /p-ANCA are pending. Current Visit: Yes Gastroenterology - PN: Subj Interval history: The patient's abdomen is still swollen and experiencing 8/10 pain from lack of movement of food and fluid through her GI tract. She does not wish to have an NG tube placed. Eyes and nose are documenting 2-3 bowel movements per day Exam (Progress Note) - Constitutional Vitals: Period Temp Pulse Resp BP Sys/Pearson Pulse Ox Last 24 Hr 97.7 F-98.6 F 63-79 16-20 139-150/67-87 93-99 General appearance: mild distress - Eye Eye exam: Present: EOMI Pupils: Present: YOMAIRA - ENT ENT exam: Present: normal oropharynx - Respiratory Respiratory exam: Present: clear to auscultation bilaterally - Cardiovascular Cardiovascular exam: Present: regular rate and rhythm - GI/Abdominal GI/Abdominal exam: Present: normal bowel sounds, distended, tenderness ( epigastric pain and periumbilical pain), soft. Absent: guarding, rebound - Neurological Exam Neurological exam: Present: alert, oriented X3, CN II-XII intact - Psychiatric Psychiatric exam: Present: normal affect, normal mood, anxious - Skin Skin exam: Present: warm Results - Labs CBC & BMP: 09/03/16 04:51 09/03/16 04:51
[2016-09-03] MEDS: PROMETHAZINE 25 MG/1 ML VIAL IM PRN ×2 (13:05→21:18)
[2016-09-03] MEDS: MEPERIDINE 25 MG/1 ML VIAL IV PRN ×2 (13:05→21:21)
[2016-09-03] MEDS: LEVOFLOXACIN INJ 500 MG in PREMIX 1 EACH IV SCH (21:28)
[2016-09-03] MEDS: CYCLOBENZAPRINE 10 MG TABLET PO SCH (22:07)
[2016-09-03] MEDS: ZALEPLON 5 MG CAPSULE PO SCH (22:07)
[2016-09-04] MEDS: SODIUM CHLORIDE 0.9% 1,000 ML IV SCH ×3 (00:34→16:52)
[2016-09-04] MEDS: methylPREDNISolone SOD SUC 40 MG/1 ML VIAL IV SCH ×4 (03:24→21:24)
--- NOTE | 2016-09-04 08:32 | Family Practice Progress Note ---
Family Practice - PN: Subj Interval history: Patient seen this morning doing well her good night she did require 1 dose Demerol through the night and Indocin pertinent. She is been sleeping well. Exam (Progress Note) - Constitutional Vitals: Period Temp Pulse Resp BP Sys/Pearson Pulse Ox Last 24 Hr 97.5 F-98.4 F 62-83 17-20 135-157/74-92 94-95 Exam: Generally stable no acute distress arouses easily HEENT neck is supple trachea midline Lungs generally clear Abdomen soft nondistended at present. Periodic abdominal pain/spasms Extremities no clubbing cyanosis or edema Results - Labs CBC & BMP: 09/03/16 04:51 09/03/16 04:51 Quality Measures - Stroke Symptom Onset Unknown: No
[2016-09-04] MEDS: BUDESONIDE 3 MG CAPSULE PO SCH ×3 (08:39→21:02)
[2016-09-04] MEDS: DICYCLOMINE 10 MG CAPSULE PO SCH ×3 (08:39→21:02)
[2016-09-04] MEDS: LISINOPRIL 20 MG TABLET PO SCH (08:39)
[2016-09-04] MEDS: PANTOPRAZOLE 40 MG TABLET PO SCH (08:39)
[2016-09-04] MEDS: PARoxetine 10 MG TABLET PO SCH (08:39)
[2016-09-04] MEDS: DOCUSATE SODIUM 100 MG CAPSULE PO SCH ×2 (08:40→21:00)
[2016-09-04] MEDS: MEPERIDINE 25 MG/1 ML VIAL IV PRN ×2 (11:42→20:14)
[2016-09-04] MEDS: PROMETHAZINE 25 MG/1 ML VIAL IM PRN ×2 (11:42→21:02)
--- NOTE | 2016-09-04 15:50 | Gastrointestinal Progress Note ---
Assessment and Plan (1) Enteritis Status: Acute Assessment and plan: This patient is being seen for Dr. Espinosa while he is off for the weekend. As per Dr. Solo's notes this patient has a history of ulcerative colitis in the colon although most recently biopsies demonstrated mastocytic colitis-- my suggestion would be to look at p-ANCA and ASCA antibodies is a lingering serology evidence of ulcerative colitis versus Crohn's respectively. She has had some response to Entocort in the past and we'll need to believe she was respond to steroids and general again. Currently the patient is on Solu-Medrol with minimal improvement. She is wondering if this is essentially different from the Entocort she was previously on. 09/04/16-- Patient states that she feels no better than previous. We did discuss the fact that the later stools were negative for microscopic organisms potentially feeding into her symptoms. Even with a diagnosis of mastocytic colitis it may be worthwhile considering the patient for a trial of Viberzi 100 mg by mouth twice a day to see if this would produce any improvement in her symptoms. Dr. Espinosa does have a small stalk of this that he could try samples for the patient or she can be observed getting this in house. Current Visit: Yes (2) Nausea vomiting and diarrhea Status: Acute Assessment and plan: Improved, patient is not taking in by mouth intake routinely. 09/04/16-- no further problems with nausea/vomiting Current Visit: Yes (3) Colitis Status: Chronic Assessment and plan: Diarrhea is under control for the present time. Will continue to observe. ASCA /p-ANCA are pending. Current Visit: Yes Gastroenterology - PN: Subj Interval history: Patient still frustrated concerning her diarrhea. Stool studies negative for standard stool pathogens and C. difficile. The patient was also checked for influenza which was also negative. Exam (Progress Note) - Constitutional Vitals: Period Temp Pulse Resp BP Sys/Pearson Pulse Ox Last 24 Hr 97.5 F-98.7 F 62-78 17-20 135-157/74-95 94-97 General appearance: mild distress - Head Head exam: Present: normocephalic, atraumatic - Eye Eye exam: Present: EOMI - Respiratory Respiratory exam: Present: clear to auscultation bilaterally - Cardiovascular Cardiovascular exam: Present: regular rate and rhythm - GI/Abdominal GI/Abdominal exam: Present: normal bowel sounds, tenderness (in the periumbilical region), soft. Absent: guarding - Extremities Exam Extremities exam: Absent: edema - Neurological Exam Neurological exam: Present: alert, oriented X3 - Psychiatric Psychiatric exam: Present: normal affect, normal mood - Skin Skin exam: Present: warm Results - Labs CBC & BMP: 09/03/16 04:51 09/03/16 04:51
[2016-09-04] MEDS: CYCLOBENZAPRINE 10 MG TABLET PO SCH (21:02)
[2016-09-04] MEDS: ZALEPLON 5 MG CAPSULE PO SCH (21:02)
[2016-09-04] MEDS: LEVOFLOXACIN INJ 500 MG in PREMIX 1 EACH IV SCH (21:25)
[2016-09-05] MEDS: methylPREDNISolone SOD SUC 40 MG/1 ML VIAL IV SCH ×3 (03:42→18:10)
[2016-09-05] MEDS: SODIUM CHLORIDE 0.9% 1,000 ML IV SCH ×2 (03:56→12:00)
[2016-09-05] MEDS: MEPERIDINE 25 MG/1 ML VIAL IV PRN ×2 (05:57→13:05)
[2016-09-05] MEDS: PROMETHAZINE 25 MG/1 ML VIAL IM PRN ×2 (06:02→13:04)
[2016-09-05 07:15] LABS: Basophils % 0.2 % (0.0-0.8); Hematocrit 34.8 VOL% (35.7-47.0); Hemoglobin 11.8 GM/DL (12.0-16.0); Immature Granulocytes % 2.7 %; Immature Granulocytes Absolute 0.17 #; Lymphocytes # 0.5 10*3/uL (1.4-4.0); Mean Corpuscular HGB Conc 33.9 GM/DL (32-36); Mean Corpuscular Hemoglobin 29 PG (27-34); Mean Corpuscular Volume 85.9 FL (87-102); Mean Platelet Volume 10.1 FL (9.6-12.0); Monocytes # 0.2 10*3/uL (0.11-0.8); Monocytes % 3.4 % (1.7-12.7); Neutrophils # 5.3 10*3/uL (1.4-7.4); Neutrophils % 85.7 % (38.7-73.9); Platelet Count 168 T/CUMM (130-400); Red Blood Count 4.05 MC/CUMM (3.8-5.5); Red Cell Distribution Width 13.5 % (9.3-17.3); White Blood Count 6.2 T/CUMM (4-12)
--- NOTE | 2016-09-05 07:36 | Family Practice Progress Note ---
Family Practice - PN: Subj Interval history: Patient states she is doing slightly better this morning. She still having quite a bit of pain but her nausea and vomiting has improved. Patient states she is on a soft diet which she is tolerating for the most part. I note that her sed rate and CRP were essentially normal on admission. Patient's not seen any blood in her stool. Exam (Progress Note) - Constitutional Vitals: Period Temp Pulse Resp BP Sys/Pearson Pulse Ox Last 24 Hr 98.0 F-98.7 F 54-75 18-20 135-153/74-95 92-97 Exam: Objective a well-developed pleasant white female in no acute distress. She is comfortable in bed is able to give a good history. Cardiovascular: Heart rate is regular without murmurs or gallops. Respiratory: Lungs clear to auscultation bilaterally. Abdomen: Patient has diffuse abdominal tenderness directly. Bowel sounds were slightly increased. Results - Labs CBC & BMP: 09/05/16 06:53 09/03/16 04:51 Lab Results: I have reviewed the past 24 hour labs Assessment and Plan (1) Colitis Status: Chronic Assessment and plan: 08/31/2016: CT the abdomen pelvis will be ordered. Will be given IV antibiotics due to her tenderness and rebound. Stool studies will be ordered as well as CRP and sed rate. 09/01/2016: We will continue present IV antibiotic therapy. Stool cultures have been ordered. Current Visit: Yes (2) Enteritis Status: Acute Assessment and plan: 09/01/2016: We will consult Dr. Ziggy Espinosa. 09/05/2016: We will continue present course of therapy. Other inflammatory markers have been ordered. Current Visit: Yes Quality Measures - Stroke Symptom Onset Unknown: No
[2016-09-05 07:42] LABS: Calcium 8.5 MG/DL (8.5-10.1); Magnesium 2.2 MG/DL (1.8-2.4); Osmolality,Calculated 290.6 MOS/KG (273-304); Potassium 3.1 MMOL/L (3.5-5.1)
--- NOTE | 2016-09-05 09:31 | Gastrointestinal Progress Note ---
<Hai Solimanher Randell - Last Filed: 09/05/16 09:26> Assessment and Plan (1) Colitis Status: Chronic Assessment and plan: 09/05-Abd pain improved from weekend. No further N/V. Tolerating diet with fair appetite. Having bowel movements at present. Plan and addendum to follow by Dr Espinosa. 09/02-Abd pain improved, no N/V. Tolerating diet. Will advance to soft diet and continue to monitor. Plan and addendum to follow by Dr Espinosa. 09/01-Two day history of abd pain with N/V, diarrhea. Hx of mast cell colitis. CT findings noted with progressive small bowel dilation, limited contrast in colon. Plan and addendum to follow by Dr Espinosa Current Visit: Yes Gastroenterology - PN: Subj Interval history: CC: Enteritis Pt is awake and alert, states she isnt feeling very well today. States that the pain is better at this time. She is not eating very much at present time. Abdomen is soft, nontender. She is having bowel movements at present. Denies any overt bleeding. No reports of nausea or vomiting at present time. ROS: Denies SOB or chest pain Exam (Progress Note) - Constitutional Vitals: Period Temp Pulse Resp BP Sys/Pearson Pulse Ox Last 24 Hr 98.2 F-98.7 F 54-75 18-20 136-153/75-95 92-97 General appearance: normal weight, no acute distress - Head Head exam: Present: normal inspection, normocephalic - Eye Eye exam: Present: other (lids and cojunctiva unremarkable). Absent: scleral icterus - ENT ENT exam: Present: normal exam, normal oropharynx - Neck Neck exam: Present: normal inspection - Respiratory Respiratory exam: Present: clear to auscultation bilaterally. Absent: rales, rhonchi, wheezes - Cardiovascular Cardiovascular exam: Present: regular rate and rhythm. Absent: diastolic murmur , JVD, systolic murmur - GI/Abdominal GI/Abdominal exam: Present: normal bowel sounds, soft. Absent: ascites, distended, mass, organomegaly, tenderness - Extremities Exam Extremities exam: Present: normal inspection, full ROM - Back Exam Back exam: Present: normal inspection - Neurological Exam Neurological exam: Present: alert, oriented X3 - Psychiatric Psychiatric exam: Present: normal affect, normal mood - Skin Skin exam: Present: normal color, warm, dry Results - Labs CBC & BMP: 09/05/16 06:53 09/05/16 06:52 Lab Results: I have reviewed the past 24 hour labs <Ziggy Espinosa - Last Filed: 09/05/16 18:24> Exam (Progress Note) - Constitutional Vitals: Period Temp Pulse Resp BP Sys/Pearson Pulse Ox Last 24 Hr 98.2 F-98.6 F 54-75 18-20 136-148/75-85 92-96 Results - Labs CBC & BMP: 09/05/16 06:53 09/05/16 06:52
[2016-09-05] MEDS: BUDESONIDE 3 MG CAPSULE PO SCH ×3 (09:43→21:16)
[2016-09-05] MEDS: PARoxetine 10 MG TABLET PO SCH (09:43)
[2016-09-05] MEDS: LISINOPRIL 20 MG TABLET PO SCH (09:44)
[2016-09-05] MEDS: PANTOPRAZOLE 40 MG TABLET PO SCH (09:44)
[2016-09-05] MEDS: DICYCLOMINE 10 MG CAPSULE PO SCH ×3 (09:44→21:17)
[2016-09-05] MEDS: DOCUSATE SODIUM 100 MG CAPSULE PO SCH ×2 (09:44→21:18)
[2016-09-05] MEDS ORDERED: LIDOCAINE 2% 5 ML VIAL ONE (11:01)
[2016-09-05] MEDS ORDERED: PROPOFOL 200 MG/20 ML VIAL IV ONE (11:01)
[2016-09-05] MEDS ORDERED: BISACODYL 5 MG TABLET PO ONE (12:00)
--- NOTE | 2016-09-05 14:04 | EKG Report ---
Stationary ECG Study [facility] Test Date: 09/05/2016 2:03:39 PM Pat Name: MARNIE JENKINS Department: Room: 241 Gender: F Recoverer: MUKUL : 1955 Requested by: Keyana Mathis Order Number: [id number] Reading MD: HARSH QUINTANILLA Intervals [place] Rate: 70 P: 82 ND: 167 QRS: 74 QRSD: 100 T: 61 QT: 410 QTc: 430 Interpretive Statements SINUS RHYTHM SEPTAL MYOCARDIAL INFARCTION, OF INDETERMINATE AGE Electronically Signed On 09-08-16 08:15:40 BAR WAITER/WAITRESS by HARSH QUINTANILLA [email or web address]
[2016-09-05] MEDS ORDERED: POLYETHYLENE GLYCOL POWDER 255 GM BOTTLE PO ONE (18:00)
[2016-09-05] MEDS ORDERED: MAGNESIUM CITRATE 300 ML BOTTLE PO ONE (21:00)
[2016-09-05] MEDS: CYCLOBENZAPRINE 10 MG TABLET PO SCH (21:17)
[2016-09-05] MEDS: LEVOFLOXACIN INJ 500 MG in PREMIX 1 EACH IV SCH (21:17)
[2016-09-06] MEDS: MEPERIDINE 25 MG/1 ML VIAL IV PRN ×2 (00:11→14:22)
[2016-09-06] MEDS: methylPREDNISolone SOD SUC 40 MG/1 ML VIAL IV SCH ×5 (00:11→21:17)
[2016-09-06] MEDS: PROMETHAZINE 25 MG/1 ML VIAL IM PRN ×2 (00:54→14:22)
[2016-09-06] MEDS: ZALEPLON 5 MG CAPSULE PO SCH ×2 (06:57→22:26)
--- NOTE | 2016-09-06 08:02 | Family Practice Progress Note ---
Family Practice - PN: Subj Interval history: Patient states he is having persistent abdominal pain and is scheduled for colonoscopy. I certainly agree with this and anxious to see the results. She has not had any vomiting but she still quite nauseated. Exam (Progress Note) - Constitutional Vitals: Period Temp Pulse Resp BP Sys/Pearson Pulse Ox Last 24 Hr 97.8 F-98.5 F 58-75 19-20 137-155/86-110 95-97 Exam: Objective a well-developed pleasant white female in no acute distress. She is comfortable in bed is able to give a good history. Cardiovascular: Heart rate is regular without murmurs or gallops. Respiratory: Lungs clear to auscultation bilaterally. Abdomen: Patient has diffuse abdominal tenderness directly. Bowel sounds were slightly increased. Results - Labs CBC & BMP: 09/05/16 06:53 09/05/16 06:52 Lab Results: I have reviewed the past 24 hour labs Assessment and Plan (1) Colitis Status: Chronic Assessment and plan: 08/31/2016: CT the abdomen pelvis will be ordered. Will be given IV antibiotics due to her tenderness and rebound. Stool studies will be ordered as well as CRP and sed rate. 09/01/2016: We will continue present IV antibiotic therapy. Stool cultures have been ordered. Current Visit: Yes (2) Enteritis Status: Acute Assessment and plan: 09/01/2016: We will consult Dr. Ziggy Espinosa. 09/05/2016: We will continue present course of therapy. Other inflammatory markers have been ordered. 09/06/2016: Patient scheduled for C scope today. Current Visit: Yes Quality Measures - Stroke Symptom Onset Unknown: No
[2016-09-06] MEDS: SODIUM CHLORIDE 0.9% 1,000 ML IV SCH ×2 (09:24→19:53)
--- NOTE | 2016-09-06 11:02 | History and Physical Update ---
History and Physical Update - Physical Exam Mental Status: alert and oriented Heart: regular rate and rhythm Lung: clear to auscultation Abdomen: within normal limits Vitals: within normal limits
--- NOTE | 2016-09-06 11:27 | Operative Note ---
Date of procedure: 09/06/16 Pre-op diagnosis: Abdominal pain with abnormal CT Procedure: Colonoscopy with biopsy Long-standing history of chronic recurrent abdominal pain most recently with CT scan suggesting question of abnormality in the level of the ileum. Symptoms have been refractory to medical management will proceed with colonoscopy to further evaluate. Informed symptoms obtained the patient She was sedated with MAC anesthesia per anesthesia protocol. Patient placed in left lateral decubitus position digital exam was normal. No rectal masses were felt. Prep was limited due to retained stool failure visibility. Unable to exclude small lesions. Withdrawal time 7 minutes Findings: Cecum-normal identify obvious significance of orifice. Terminal ileum-normal to 10 cm Ascending colon-normal exam limited by prep Transverse colon-normal exam limited by prep Descending colon-diverticulosis otherwise normal exam limited by prep Sigmoid colon-diverticulosis otherwise normal exam limited by prep Rectum-normal direct flexion views. Sensitivity of this procedure is lost due to less than ideal prep however no gross lesions are identified. Random biopsies were taken throughout the colon for follow-up of her history of microscopic colitis. Patient discharge recovery in good condition Postop diagnosis: 1. Chronic abdominal pain-likely secondary to irritable bowel and adhesions. Continue with symptomatic treatment 2. Diverticulosis coli-continue fiber and fluid intake. 3. History of microscopic colitis with mast cell predominance follow-up biopsies and adjust medications per findings. Anesthesia: MAC Surgeon / Physician: Ziggy Espinosa Estimated blood loss: none Specimens: other (Random colon biopsies for possible microscopic colitis) Condition: stable Disposition: post procedure unit Results - Labs CBC & BMP: 09/05/16 06:53 09/05/16 06:52 Discharge Plan - Discharge Medications No Action Cyclobenzaprine [Flexeril] 10 mg PO BEDTIME Budesonide Cap [Entocort EC] 3 mg PO TID Dicyclomine Cap/Tab [Bentyl Cap/Tab] 10 mg PO TID Cyanocobalamin (Vitamin B-12) [Cyanocobalamin Injection] 1,000 mcg IJ Q28D Lisinopril 20 mg PO DAILY Zolpidem Tartrate 10 mg PO BEDTIME Famotidine Tab [Pepcid Tab] 20 mg PO BID tablet Meperidine Tab [Demerol Tab] 50 mg PO Q6H PRN #0 tablet PRN Reason: Pain Severe (8-10) PARoxetine [Paxil] 10 mg PO DAILY #30 tablet Pantoprazole Tab [Protonix Tab] 40 mg PO DAILY #30 tablet Promethazine Tab [Phenergan Tab] 25 mg PO Q6H PRN #20 tablet PRN Reason: Nausea/Vomiting Cetirizine Tab [ZyrTEC Tab] 10 mg PO DAILY PRN PRN Reason: Allergy Symptoms - Follow Up or Referral - Forms/Instructions
--- NOTE | 2016-09-06 12:09 | Anesthesia ---
Anesthesia Post OP - Post Ansesthetic Evaluation Patient seen in post op: Yes Resp: within normal limits CV: within normal limits Mental: within normal limits Temp: within normal limits Aizx-Re-Nyxopipae: within normal limits Nausea and Vomiting: within normal limits Pain: within normal limits
[2016-09-06] MEDS: DICYCLOMINE 10 MG CAPSULE PO SCH ×3 (14:36→22:26)
[2016-09-06] MEDS: BUDESONIDE 3 MG CAPSULE PO SCH ×3 (14:37→22:28)
[2016-09-06] MEDS: DOCUSATE SODIUM 100 MG CAPSULE PO SCH ×2 (14:37→22:29)
[2016-09-06] MEDS: PARoxetine 10 MG TABLET PO SCH (14:37)
[2016-09-06] MEDS: LISINOPRIL 20 MG TABLET PO SCH (14:37)
[2016-09-06] MEDS: PANTOPRAZOLE 40 MG TABLET PO SCH (14:37)
[2016-09-06 14:53] LABS: Myeloperoxidase Antibody < 0.2 U
[2016-09-06] MEDS: CYCLOBENZAPRINE 10 MG TABLET PO SCH (22:25)
[2016-09-06] MEDS: LEVOFLOXACIN INJ 500 MG in PREMIX 1 EACH IV SCH (22:26)
[2016-09-07] MEDS: MEPERIDINE 25 MG/1 ML VIAL IV PRN ×2 (01:39→17:43)
[2016-09-07] MEDS: PROMETHAZINE 25 MG/1 ML VIAL IM PRN (01:39)
[2016-09-07] MEDS: methylPREDNISolone SOD SUC 40 MG/1 ML VIAL IV SCH ×4 (03:34→22:24)
[2016-09-07] MEDS: SODIUM CHLORIDE 0.9% 1,000 ML IV SCH ×2 (06:27→17:12)
--- NOTE | 2016-09-07 08:11 | Family Practice Progress Note ---
Family Practice - PN: Subj Interval history: Patient states she is feeling a little bit better this morning and her colonoscopy revealed no acute findings. Patient states she would like to advance her diet if possible. Patient states she is still having pain though it is improved. Exam (Progress Note) - Constitutional Vitals: Period Temp Pulse Resp BP Sys/Pearson Pulse Ox Last 24 Hr 97.5 F-98.3 F 58-73 14-20 140-187/78-103 91-96 Exam: Objective a well-developed pleasant white female in no acute distress. She is ready for some regular food. Cardiovascular: Heart rate is regular without murmurs or gallops. Respiratory: Lungs clear to auscultation bilaterally. Abdomen: Patient has diffuse abdominal tenderness directly. Bowel sounds were normal Results - Labs CBC & BMP: 09/05/16 06:53 09/05/16 06:52 Lab Results: I have reviewed the past 24 hour labs Assessment and Plan (1) Colitis Status: Chronic Assessment and plan: 08/31/2016: CT the abdomen pelvis will be ordered. Will be given IV antibiotics due to her tenderness and rebound. Stool studies will be ordered as well as CRP and sed rate. 09/01/2016: We will continue present IV antibiotic therapy. Stool cultures have been ordered. Current Visit: Yes (2) Enteritis Status: Acute Assessment and plan: 09/01/2016: We will consult Dr. Ziggy Espinosa. 09/05/2016: We will continue present course of therapy. Other inflammatory markers have been ordered. 09/06/2016: Patient scheduled for C scope today. 09/07/2016: Patient is improving gradually, will advance her diet Current Visit: Yes Quality Measures - Stroke Symptom Onset Unknown: No
[2016-09-07] MEDS: PARoxetine 10 MG TABLET PO SCH (09:06)
[2016-09-07] MEDS: PANTOPRAZOLE 40 MG TABLET PO SCH (09:06)
[2016-09-07] MEDS: BUDESONIDE 3 MG CAPSULE PO SCH ×3 (09:06→21:15)
[2016-09-07] MEDS: DICYCLOMINE 10 MG CAPSULE PO SCH ×3 (09:06→21:15)
[2016-09-07] MEDS: LISINOPRIL 20 MG TABLET PO SCH (09:06)
[2016-09-07] MEDS: DOCUSATE SODIUM 100 MG CAPSULE PO SCH ×2 (09:08→21:15)
--- NOTE | 2016-09-07 10:50 | Pathology Report from [facility] ---
ACCESSION # : [id number] PATIENT NAME : Marnie Jenkins ORDERING DR : RONAN HARTLEY MD CLINICAL HX: Abd pain POST-OP DX: Same SPECIMEN INFO: Random colon BXS GROSS DESCRIPTION: The specimen is received in formalin labeled with the patient 's name and consists of a 0.6 x 0.4 cm aggregate of woods tissue. Submitted in one cassette. DIAGNOSIS FOR MARNIE JENKINS: RANDOM COLON BIOPSIES: Mild superficial chronic inflammation, benign lymphoid aggregates, focal superficial neutrophilic debris. No evidence of inflammatory bowel disease, lymphocytic/ collagenous colitis, ischemic changes, pseudomembrane, or malignancy. Most c/w self limited colitis. SERVICE DATE: 09/06/2016 REPORT DATE: 09/07/2016 PATHOLOGIST: Nayely Mcgill M.D. [facility]ITAL[facility]ell
--- NOTE | 2016-09-07 11:15 | Gastrointestinal Progress Note ---
<Hai Solimanher Randell - Last Filed: 09/07/16 12:45> Assessment and Plan (1) Colitis Status: Chronic Assessment and plan: 09/07-C-scope findings noted, path report noted. Tolerating diet, to be advanced today. Plan and addendum to follow by DR Espinosa. 09/05-Abd pain improved from weekend. No further N/V. Tolerating diet with fair appetite. Having bowel movements at present. Plan and addendum to follow by Dr Espinosa. 09/02-Abd pain improved, no N/V. Tolerating diet. Will advance to soft diet and continue to monitor. Plan and addendum to follow by Dr Espinosa. 09/01-Two day history of abd pain with N/V, diarrhea. Hx of mast cell colitis. CT findings noted with progressive small bowel dilation, limited contrast in colon. Plan and addendum to follow by Dr Espinosa Current Visit: Yes Gastroenterology - PN: Subj Interval history: CC: Abd pain Pt is seen, sitting up in bed. States she is feeling a little better today. She states her pain is improved at this time. She denies any nausea or vomiting. C- scope findings noted with path report returned most likely related to self limiting colitis. She is wanting to advance her diet today and see how she tolerates this. Abdomen is soft, nontender. ROS: Denies SOB or chest pain Exam (Progress Note) - Constitutional Vitals: Period Temp Pulse Resp BP Sys/Pearson Pulse Ox Last 24 Hr 97.5 F-98.3 F 59-73 14-20 140-187/78-103 91-96 General appearance: normal weight, no acute distress - Head Head exam: Present: normal inspection, normocephalic - Eye Eye exam: Present: other (lids and conjunctiva unremarkable). Absent: scleral icterus - ENT ENT exam: Present: normal exam, normal oropharynx - Neck Neck exam: Present: normal inspection - Respiratory Respiratory exam: Present: clear to auscultation bilaterally. Absent: rales, rhonchi, wheezes - Cardiovascular Cardiovascular exam: Present: regular rate and rhythm. Absent: diastolic murmur , JVD, systolic murmur - GI/Abdominal GI/Abdominal exam: Present: normal bowel sounds, soft. Absent: ascites, distended, mass, organomegaly, tenderness - Extremities Exam Extremities exam: Present: normal inspection, full ROM - Back Exam Back exam: Present: normal inspection - Neurological Exam Neurological exam: Present: alert, oriented X3 - Psychiatric Psychiatric exam: Present: normal affect, normal mood - Skin Skin exam: Present: normal color, warm, dry Results - Labs CBC & BMP: 09/05/16 06:53 09/05/16 06:52 Lab Results: I have reviewed the past 24 hour labs <Ziggy Espinosa - Last Filed: 09/07/16 16:49> Exam (Progress Note) - Constitutional Vitals: Period Temp Pulse Resp BP Sys/Pearson Pulse Ox Last 24 Hr 97.6 F-98.4 F 59-76 18-20 139-156/76-99 94-98 Results - Labs CBC & BMP: 09/05/16 06:53 09/05/16 06:52
[2016-09-07] MEDS: ZALEPLON 5 MG CAPSULE PO SCH (21:15)
[2016-09-07] MEDS: CYCLOBENZAPRINE 10 MG TABLET PO SCH (21:15)
[2016-09-07] MEDS: LEVOFLOXACIN INJ 500 MG in PREMIX 1 EACH IV SCH (22:24)
[2016-09-08] MEDS: SODIUM CHLORIDE 0.9% 1,000 ML IV SCH (02:21)
[2016-09-08] MEDS: methylPREDNISolone SOD SUC 40 MG/1 ML VIAL IV SCH ×4 (02:55→21:56)
[2016-09-08 06:17] LABS: Hematocrit 34.4 VOL% (35.7-47.0); Hemoglobin 11.8 GM/DL (12.0-16.0); Immature Granulocytes % 1.3 %; Immature Granulocytes Absolute 0.12 #; Lymphocytes # 0.3 10*3/uL (1.4-4.0); Lymphocytes % 3.6 % (21.3-54.2); Mean Corpuscular HGB Conc 34.3 GM/DL (32-36); Mean Corpuscular Hemoglobin 29 PG (27-34); Mean Corpuscular Volume 85.4 FL (87-102); Mean Platelet Volume 10.2 FL (9.6-12.0); Monocytes # 0.4 10*3/uL (0.11-0.8); Monocytes % 3.8 % (1.7-12.7); Neutrophils # 8.6 10*3/uL (1.4-7.4); Neutrophils % 91.3 % (38.7-73.9); Platelet Count 187 T/CUMM (130-400); Red Blood Count 4.03 MC/CUMM (3.8-5.5); Red Cell Distribution Width 13.6 % (9.3-17.3); White Blood Count 9.4 T/CUMM (4-12)
[2016-09-08 06:42] LABS: Band Neutrophils 1 % (0-10); Burr Cells Slight; Elliptocytes Few; Hypochromasia 1+; Lymphocytes 2 % (20-55); Platelet Estimate Normal; Segmented Neutrophils 95 % (50-85); Total Cells Counted 100
[2016-09-08 06:50] LABS: Calcium 7.8 MG/DL (8.5-10.1); Osmolality,Calculated 292.6 MOS/KG (273-304); Potassium 2.9 MMOL/L (3.5-5.1)
--- NOTE | 2016-09-08 07:44 | Family Practice Progress Note ---
Family Practice - PN: Subj Interval history: Patient still complaining of abdominal pain. Colonoscopy revealed no evidence of diverticulitis or colitis. I think we can stop her antibiotics. She is able to keep down liquids so will stop her IV fluids as well. I have encouraged her to ambulate in the halls. She is scheduled for her small bowel follow-through today. Exam (Progress Note) - Constitutional Vitals: Period Temp Pulse Resp BP Sys/Pearson Pulse Ox Last 24 Hr 97.6 F-976 F 59-79 16-22 120-161/72-105 92-98 Exam: Objective a well-developed pleasant white female in no acute distress. She is still having pain. Cardiovascular: Heart rate is regular without murmurs or gallops. Respiratory: Lungs clear to auscultation bilaterally. Abdomen: Patient has diffuse abdominal tenderness directly. Bowel sounds were normal Results - Labs CBC & BMP: 09/08/16 05:18 09/08/16 05:18 Lab Results: I have reviewed the past 24 hour labs Assessment and Plan (1) Colitis Status: Suspected Assessment and plan: 08/31/2016: CT the abdomen pelvis will be ordered. Will be given IV antibiotics due to her tenderness and rebound. Stool studies will be ordered as well as CRP and sed rate. 09/01/2016: We will continue present IV antibiotic therapy. Stool cultures have been ordered. Current Visit: Yes (2) Enteritis Status: Acute Assessment and plan: 09/01/2016: We will consult Dr. Ziggy Espinosa. 09/05/2016: We will continue present course of therapy. Other inflammatory markers have been ordered. 09/06/2016: Patient scheduled for C scope today. 09/07/2016: Patient is improving gradually, will advance her diet 09/08/2016: Patient scheduled for small bowel follow-through Current Visit: Yes Quality Measures - Stroke Symptom Onset Unknown: No
--- NOTE | 2016-09-08 12:43 | Fluoroscopy Report ---
FL small bowel series Indication: Abdominal pain. History of prior colon cancer. Pain located across the lower abdomen. Comparison: CT of the abdomen and pelvis 08/31/2016. Technique: Manager Plan image was reviewed. Following administration of oral barium, multiple images of the abdomen were obtained. Once barium entered large bowel, spot imaging of the ileocecal valve was performed. Findings: Manager Plan image demonstrates a moderate collection of stool within the right lower abdomen. Surgical absence of the gallbladder is demonstrated. Follow-up morphology involving jejunum and ileum is unremarkable. There is no distinct evidence of mass effect within the abdomen or pelvis. Ileocecal valve is unremarkable. Incomplete filling of the more caudal cecum is suggested given the appearance of retained stool in woodworking machine offbearer image. No distinct abnormality involving small bowel. BE determined within the mid to distal ileum. Note is made to multiple loops on CT as suggested wall thickening or adjacent fluid present with minimal prominence of folds associated. Impression: 1. Incomplete filling of cecum results from retained stool. 2. Small bowel loops on CT particular within the pelvis have suggested wall thickening present and mildly prominent mucosal folds. These loops of bowel all Small bowel follow through demonstrated no specific abnormality or evidence of mass effect. Differential considerations could include changes from radiation therapy, infection, and lymphoma. 09/08/2016 12:37 PM PROCEDURE INTERPRETED AT [facility] DEPARTMENT OF RADIOLOGY Final Report Signed by: Dr. Aurelio Peterson
[2016-09-08] MEDS: DOCUSATE SODIUM 100 MG CAPSULE PO SCH ×2 (12:49→20:34)
[2016-09-08] MEDS: DICYCLOMINE 10 MG CAPSULE PO SCH ×3 (12:49→20:32)
[2016-09-08] MEDS: BUDESONIDE 3 MG CAPSULE PO SCH ×3 (12:49→20:32)
--- NOTE | 2016-09-08 12:53 | Gastrointestinal Progress Note ---
<JourdanNaima Randell - Last Filed: 09/08/16 12:51> Assessment and Plan (1) Colitis Status: Suspected Assessment and plan: 09/08-Small bowel xray results noted. Reports increased pain today. Plan and addendum to follow by Dr Espinosa. 09/07-C-scope findings noted, path report noted. Tolerating diet, to be advanced today. Plan and addendum to follow by DR Espinosa. 09/05-Abd pain improved from weekend. No further N/V. Tolerating diet with fair appetite. Having bowel movements at present. Plan and addendum to follow by Dr Espinosa. 09/02-Abd pain improved, no N/V. Tolerating diet. Will advance to soft diet and continue to monitor. Plan and addendum to follow by Dr Espinosa. 09/01-Two day history of abd pain with N/V, diarrhea. Hx of mast cell colitis. CT findings noted with progressive small bowel dilation, limited contrast in colon. Plan and addendum to follow by Dr Espinosa Current Visit: Yes Gastroenterology - PN: Subj Interval history: CC: Abd pain Pt is seen, following small bowel xray. SHe states she is having more abdominal pain today. States she has no nausea or vomiting. Appetite is fair today. Xray results shows incomplete filling of cecum from retained stool, small bowel loops with thickening and mildly prominent mucosal folds with no mass effect. Abdomen is soft, tender to touch. ROS: Denies SOB or chest pain Exam (Progress Note) - Constitutional Vitals: Period Temp Pulse Resp BP Sys/Pearson Pulse Ox Last 24 Hr 97.6 F-976 F 59-79 16-22 120-161/72-105 92-97 General appearance: normal weight, no acute distress - Head Head exam: Present: normal inspection, normocephalic - Eye Eye exam: Present: other (lids and conjunctiva unremarkable). Absent: scleral icterus - ENT ENT exam: Present: normal exam, normal oropharynx - Neck Neck exam: Present: normal inspection - Respiratory Respiratory exam: Present: clear to auscultation bilaterally. Absent: rales, rhonchi, wheezes - Cardiovascular Cardiovascular exam: Present: regular rate and rhythm. Absent: diastolic murmur , JVD, systolic murmur - GI/Abdominal GI/Abdominal exam: Present: normal bowel sounds, tenderness, soft. Absent: ascites, distended, mass, organomegaly - Extremities Exam Extremities exam: Present: normal inspection, full ROM - Back Exam Back exam: Present: normal inspection - Neurological Exam Neurological exam: Present: alert, oriented X3 - Psychiatric Psychiatric exam: Present: normal affect, normal mood - Skin Skin exam: Present: normal color, warm, dry Results - Labs CBC & BMP: 09/08/16 05:18 09/08/16 05:18 Lab Results: I have reviewed the past 24 hour labs <Ziggy Espinosa - Last Filed: 09/08/16 18:26> Exam (Progress Note) - Constitutional Vitals: Period Temp Pulse Resp BP Sys/Pearson Pulse Ox Last 24 Hr 97.5 F-976 F 59-70 16-22 120-161/72-105 92-97 Results - Labs CBC & BMP: 09/08/16 05:18 09/08/16 05:18
[2016-09-08] MEDS: MEPERIDINE 25 MG/1 ML VIAL IV PRN ×2 (13:15→23:15)
[2016-09-08] MEDS: PROMETHAZINE 25 MG/1 ML VIAL IM PRN ×2 (13:15→23:14)
[2016-09-08] MEDS: PARoxetine 10 MG TABLET PO SCH ×2 (13:25→16:54)
[2016-09-08] MEDS: LISINOPRIL 20 MG TABLET PO SCH (13:25)
[2016-09-08] MEDS: PANTOPRAZOLE 40 MG TABLET PO SCH (13:26)
[2016-09-08] MEDS: POTASSIUM CHLORIDE 20 MEQ TABLET PO SCH ×2 (16:54→20:33)
[2016-09-08] MEDS: ZALEPLON 5 MG CAPSULE PO SCH (20:32)
[2016-09-08] MEDS: CYCLOBENZAPRINE 10 MG TABLET PO SCH (20:33)
[2016-09-09] MEDS: methylPREDNISolone SOD SUC 40 MG/1 ML VIAL IV SCH ×2 (03:43→08:36)
--- NOTE | 2016-09-09 07:44 | Discharge Summary ---
Hospital Course - Hospital Course Hospital Course: Patient is a 61-year-old white female who was admitted to the emergency room with abdominal pain and persistent nausea and vomiting. This was consistent with her prior bouts of colitis. Her pain persisted and the CT was performed which revealed her to have some stranding and apparent edema in the mesentery of the small bowel. She had no history of fever or GI bleeding. Patient was begun on IV antibiotics and placed on clear liquid diet. She persisted in having abdominal pain underwent colonoscopy that was unremarkable. Patient did have a small bowel series performed which revealed edema and some loops of her small bowel but no masses were evident. Patient certainly could have abdominal adhesions contributing to this. Patient's pain and nausea and vomiting resolved completely on the day of discharge and she will be sent home. I am going to ask for follow-up with Dr. Espinosa concerning the results of her small bowel series. Diagnosis - Discharge Diagnosis (1) Colitis Status: Suspected (2) Enteritis Status: Resolved Discharge Plan - Discharge Data Disposition: Disch To Home/Self Care Condition at Discharge: Stable Discharge Diet: advance to your usual diet Activity: resume usual activities as tolerated Hygiene: no restrictions Weight Bearing at Discharge: full weight bearing Driving: no restrictions Contact your physician if you experience:: fever over 101 - Discharge Medications New Acetaminophen Tab [Tylenol Tab] 650 mg PO Q6H PRN #0 tablet PRN Reason: Fever > 100.4 Or Headache Levofloxacin Tab [Levaquin Tab] 250 mg PO DAILY #7 tablet Continue Cyclobenzaprine [Flexeril] 10 mg PO BEDTIME Budesonide Cap [Entocort EC] 3 mg PO TID Dicyclomine Cap/Tab [Bentyl Cap/Tab] 10 mg PO TID Cyanocobalamin (Vitamin B-12) [Cyanocobalamin Injection] 1,000 mcg IJ Q28D Lisinopril 20 mg PO DAILY Zolpidem Tartrate 10 mg PO BEDTIME Famotidine Tab [Pepcid Tab] 20 mg PO BID tablet PARoxetine [Paxil] 10 mg PO DAILY #30 tablet Pantoprazole Tab [Protonix Tab] 40 mg PO DAILY #30 tablet Promethazine Tab [Phenergan Tab] 25 mg PO Q6H PRN #20 tablet PRN Reason: Nausea/Vomiting Cetirizine Tab [ZyrTEC Tab] 10 mg PO DAILY PRN PRN Reason: Allergy Symptoms Meperidine Tab [Demerol Tab] 50 mg PO Q6H PRN #15 tablet PRN Reason: Pain Severe (8-10) - Follow Up or Referral - Forms/Instructions Exam - Constitutional Vitals: Period Temp Pulse Resp BP Sys/Pearson Pulse Ox Last 24 Hr 97.5 F-99.4 F 59-98 16-20 109-154/80-99 92-100 Exam: Objective a well-developed pleasant white female in no acute distress. She is still having pain. Cardiovascular: Heart rate is regular without murmurs or gallops. Respiratory: Lungs clear to auscultation bilaterally. Abdomen: Patient has no palpable tenderness and bowel sounds are considered normal DS: Provider Date of admission: 09/02/16 13:54 Primary care physician: . No PCP Attending physician on admission: Bruno Garcia MD Discharging clinician: Bruno Garcia MD Expected date of discharge: 09/09/16
[2016-09-09] MEDS: BUDESONIDE 3 MG CAPSULE PO SCH (08:37)
[2016-09-09] MEDS: PARoxetine 10 MG TABLET PO SCH (08:37)
[2016-09-09] MEDS: LISINOPRIL 20 MG TABLET PO SCH (08:38)
[2016-09-09] MEDS: DICYCLOMINE 10 MG CAPSULE PO SCH (08:38)
[2016-09-09] MEDS: PANTOPRAZOLE 40 MG TABLET PO SCH (08:38)
[2016-09-09] MEDS: POTASSIUM CHLORIDE 20 MEQ TABLET PO SCH (08:38)
[2016-09-09] MEDS: DOCUSATE SODIUM 100 MG CAPSULE PO SCH (09:10)
[2016-09-09 11:03] VITALS: BP 139/85
--- NOTE | 2016-09-09 11:19 | Gastrointestinal Progress Note ---
<Hai Solimanher Randell - Last Filed: 09/09/16 11:17> Assessment and Plan (1) Colitis Status: Suspected Assessment and plan: 09/09-Pain free today. NO complaints. For discharge home. Plan and addendum to follow by Dr Espinosa. 09/08-Small bowel xray results noted. Reports increased pain today. Plan and addendum to follow by Dr Espinosa. 09/07-C-scope findings noted, path report noted. Tolerating diet, to be advanced today. Plan and addendum to follow by DR Espinosa. 09/05-Abd pain improved from weekend. No further N/V. Tolerating diet with fair appetite. Having bowel movements at present. Plan and addendum to follow by Dr Espinosa. 09/02-Abd pain improved, no N/V. Tolerating diet. Will advance to soft diet and continue to monitor. Plan and addendum to follow by Dr Espinosa. 09/01-Two day history of abd pain with N/V, diarrhea. Hx of mast cell colitis. CT findings noted with progressive small bowel dilation, limited contrast in colon. Plan and addendum to follow by Dr Espinosa Current Visit: Yes Gastroenterology - PN: Subj Interval history: CC: Abd pain Pt is seen, states she is feeling very good today. She states she is finally pain free. She is tolerating her diet well. Denies any nausea or vomiting. She is afebrile. Abdomen is soft, nontender. She is to be discharged home today. ROS: Denies SOB or chest pain Exam (Progress Note) - Constitutional Vitals: Period Temp Pulse Resp BP Sys/Pearson Pulse Ox Last 24 Hr 97.6 F-99.4 F 59-98 16-20 109-160/80-103 92-100 General appearance: normal weight, no acute distress - Head Head exam: Present: normal inspection, normocephalic - Eye Eye exam: Present: other (lids and conjuncitva unremarkable). Absent: scleral icterus - ENT ENT exam: Present: normal exam, normal oropharynx - Neck Neck exam: Present: normal inspection - Respiratory Respiratory exam: Present: clear to auscultation bilaterally. Absent: rales, rhonchi, wheezes - Cardiovascular Cardiovascular exam: Present: regular rate and rhythm. Absent: diastolic murmur , JVD, systolic murmur - GI/Abdominal GI/Abdominal exam: Present: normal bowel sounds, soft. Absent: ascites, distended, mass, organomegaly, tenderness - Extremities Exam Extremities exam: Present: normal inspection, full ROM - Back Exam Back exam: Present: normal inspection - Neurological Exam Neurological exam: Present: alert, oriented X3 - Psychiatric Psychiatric exam: Present: normal affect, normal mood - Skin Skin exam: Present: normal color, warm, dry Results - Labs CBC & BMP: 09/08/16 05:18 09/08/16 05:18 Lab Results: I have reviewed the past 24 hour labs Specialty Discharge - Follow Up or Referrals <Ziggy Espinosa - Last Filed: 09/09/16 15:03> Exam (Progress Note) - Constitutional Vitals: Period Temp Pulse Resp BP Sys/Pearson Pulse Ox Last 24 Hr 97.8 F-99.4 F 59-98 16-20 109-160/80-103 92-100 Results - Labs CBC & BMP: 09/08/16 05:18 09/08/16 05:18
== END 2016-09-09 15:30 | disposition home or self-care (01) | DRG 394 ==
LOC: N.ED 07:45 → N.EDINP 07:45 → INTOOBSV 11:45 → OBSVTOIN 11:45 → N.2E 14:36
PROVIDERS: ADMIT Family Medicine; ATTEND Family Medicine
PROC: COLONBX (2016-09-06 10:35)

== ENCOUNTER 2017-06-27 17:10 | Inpatient (IN) ==
[2017-06-27] MEDS ORDERED: ENOXAPARIN 100 MG/ML SYRINGE SUBCUT STA (17:33)
[2017-06-27] MEDS ORDERED: ASPIRIN 325 MG TABLET PO STA (17:33)
[2017-06-27] MEDS ORDERED: METOPROLOL TARTRATE 5 MG/5 ML VIAL IV STA (17:33)
[2017-06-27] MEDS ORDERED: NITROGLYCERIN 2% OINT 1 INCH/GM PACK TOP STA (17:33)
[2017-06-27] MEDS ORDERED: MEPERIDINE 25 MG/1 ML VIAL IV PRN (17:34)
[2017-06-27] MEDS ORDERED: NITROGLYCERIN SL 0.4 MG TABLET SL PRN (17:37)
[2017-06-27 18:16] LABS: Basophils % 0.5 % (0.0-0.8); Eosinophils % 0.5 % (0.00-10.9); Hematocrit 34.8 VOL% (35.7-47.0); Hemoglobin 11.6 GM/DL (12.0-16.0); Immature Granulocytes % 0.5 %; Immature Granulocytes Absolute 0.03 #; Lymphocytes # 1.3 10*3/uL (1.4-4.0); Lymphocytes % 20.2 % (21.3-54.2); Mean Corpuscular HGB Conc 33.3 GM/DL (32-36); Mean Corpuscular Hemoglobin 28 PG (27-34); Mean Corpuscular Volume 84.5 FL (87-102); Mean Platelet Volume 9.7 FL (9.6-12.0); Monocytes # 0.5 10*3/uL (0.11-0.8); Neutrophils # 4.6 10*3/uL (1.4-7.4); Neutrophils % 70.3 % (38.7-73.9); Platelet Count 191 T/CUMM (130-400); Red Blood Count 4.12 MC/CUMM (3.8-5.5); White Blood Count 6.5 T/CUMM (4-12)
[2017-06-27] MEDS ORDERED: ENOXAPARIN 100 MG/ML SYRINGE SUBCUT ONE (18:30)
[2017-06-27] MEDS ORDERED: NITROGLYCERIN 2% OINT 1 INCH/GM PACK TOP ONE (18:31)
[2017-06-27] MEDS ORDERED: METOPROLOL TARTRATE 5 MG/5 ML VIAL IV ONE (18:31)
[2017-06-27] MEDS ORDERED: ASPIRIN 325 MG TABLET ONE (18:31)
[2017-06-27 18:48] LABS: Albumin 3.8 G/DL (3.4-5.0); Bilirubin,Total 0.5 MG/DL (0.2-1.0); Calcium 9.3 MG/DL (8.5-10.1); Osmolality,Calculated 280.3 MOS/KG (273-304); Total Protein 7.2 G/DL (6.4-8.3)
[2017-06-27 18:51] LABS: Troponin I Only 0.143 NG/ML (0.00-0.045)
[2017-06-28] MEDS: DOCUSATE SODIUM 100 MG CAPSULE PO SCH ×3 (00:55→22:07)
[2017-06-28] MEDS: SODIUM CHLORIDE 0.45% 1,000 ML IV SCH ×2 (00:55→13:15)
[2017-06-28] MEDS ORDERED: INFLUENZA VIRUS VACCINE 0.5 ML SYRINGE IM ONE (01:00)
[2017-06-28] MEDS ORDERED: ENOXAPARIN 100 MG/ML SYRINGE SUBCUT SCH (07:30)
[2017-06-28] MEDS ORDERED: PANTOPRAZOLE 40 MG TABLET PO SCH (09:00)
[2017-06-28] MEDS: ENOXAPARIN 80 MG/0.8 ML SYRINGE SUBCUT SCH ×2 (09:09→22:07)
[2017-06-28] MEDS ORDERED: POTASSIUM CHLORIDE RIDER 10 MEQ in PREMIX 1 EACH IV PRN ×2 (10:41→10:43)
[2017-06-28] MEDS ORDERED: MAGNESIUM SULF RIDER 2 GM in PREMIX 1 EACH IV PRN ×2 (10:41→10:43)
[2017-06-28] MEDS ORDERED: HEPARIN/NACL 0.9% 2 UNITS/ML 2,000 ML IV ONE (13:11)
[2017-06-28] MEDS ORDERED: diphenhydrAMINE CAP 25 MG CAPSULE PO ONE (13:30)
[2017-06-28] MEDS ORDERED: DIAZEPAM 5 MG TABLET PO ONE (13:30)
[2017-06-28] MEDS ORDERED: fentaNYL 100 MCG/2 ML VIAL ONE (13:48)
[2017-06-28] MEDS ORDERED: fentaNYL 100 MCG/2 ML VIAL IV PRN (14:12)
[2017-06-28] MEDS ORDERED: SODIUM CHLORIDE 0.9% 1,000 ML IV SCH (16:30)
[2017-06-28 17:56] LABS: Troponin I Only 0.401 NG/ML (0.00-0.045)
[2017-06-28] MEDS ORDERED: CHLORHEXIDINE 0.12% ORAL RINSE 60 ML BOTTLE SWISH/SPIT SCH (21:00)
[2017-06-28] MEDS: CHLORHEXIDINE 4% SOLN 118 ML BOTTLE TOP SCH (22:08)
[2017-06-29] MEDS ORDERED: CEFUROXIME INJ 1,500 MG in SYRINGE 1 EACH IV ONE ×2 (00:01→09:30)
[2017-06-29] MEDS ORDERED: VANCOMYCIN 1,000 MG VIAL ONE (05:32)
[2017-06-29] MEDS: SODIUM CHLORIDE 0.45% 1,000 ML IV SCH ×3 (05:40→15:27)
[2017-06-29] MEDS ORDERED: DIAZEPAM 5 MG TABLET PO ONE (07:00)
[2017-06-29] MEDS ORDERED: PANTOPRAZOLE 40 MG TABLET PO ONE (07:00)
[2017-06-29 07:12] LABS: Calcium 8.7 MG/DL (8.5-10.1); Osmolality,Calculated 279.3 MOS/KG (273-304); Potassium 4.5 MMOL/L (3.5-5.1)
[2017-06-29] MEDS: DOCUSATE SODIUM 100 MG CAPSULE PO SCH (07:33)
[2017-06-29] MEDS ORDERED: MANNITOL 12.5 GM/50 ML VIAL IV ONE (08:24)
[2017-06-29 09:01] LABS: Basophils % 0.4 % (0.0-0.8); Eosinophils # 0.1 10*3/uL (0.0-0.87); Eosinophils % 1.4 % (0.00-10.9); Hematocrit 30.3 VOL% (35.7-47.0); Hemoglobin 10.4 GM/DL (12.0-16.0); Immature Granulocytes % 0.6 %; Immature Granulocytes Absolute 0.03 #; Lymphocytes # 1.3 10*3/uL (1.4-4.0); Lymphocytes % 26.9 % (21.3-54.2); Mean Corpuscular HGB Conc 34.3 GM/DL (32-36); Mean Corpuscular Hemoglobin 29 PG (27-34); Mean Corpuscular Volume 83.7 FL (87-102); Monocytes # 0.5 10*3/uL (0.11-0.8); Monocytes % 9.9 % (1.7-12.7); NRBC # 0.05 10*3/uL; Neutrophils % 60.8 % (38.7-73.9); Platelet Count 133 T/CUMM (130-400); Red Blood Count 3.62 MC/CUMM (3.8-5.5); Red Cell Distribution Width 14.1 % (9.3-17.3)
[2017-06-29] MEDS: ENOXAPARIN 80 MG/0.8 ML SYRINGE SUBCUT SCH (10:12)
[2017-06-29 11:15] LABS: ABG HCO3 24.4 MMOL/L (20-26); ABG Oxygen Saturation 99.2 % (95-100); ABG PCO2 40.4 MM HG (35-48); ABG PH 7.395 (7.35-7.45); ABG TCO2 22.7 MMOL/L (23-27); Glucose Heart Surgery 133 MG/DL (74-106); Hematocrit Heart Surgery 29.6 PERCENT (37-47); Hemoglobin Heart Surgery 9.6 G/DL (12.0-16.0); Ionized Calcium Arterial 1.13 MMOL/L (1.21-1.46); PCO2 Patient Temp Arterial 40.4 MMHG; PH Patient Temp Arterial 7.395; Patient Temperature 37 CELCIUS; Potassium Heart/CVR 2.9 MMOL/L (3.5-5.1); Sodium Heart/CVR 140 MMOL/L (135-145)
[2017-06-29 11:30] LABS: Apearance,Urine Slightly Hazy (Clear); Bacteria,Urine Occasional /HPF (Few); Bilirubin,Urine Negative (Negative); Blood, Urine Negative (Negative); Glucose,Urine (UA) Negative (Negative); Ketones,Urine Negative (Negative); Mucus,Urine Occasional /LPF (Occasional); Nitrite,Urine Negative (Negative); Protein,Urine Negative; RBC,Urine 3 /HPF (0-4); Urine Color Yellow (Yellow); Urine Specific Gravity 1.011 (1.001-1.035); Urine Urobilinogen < 2.0 EU/DL (0.2-1.0); WBC,Urine 43 /HPF (0-6)
[2017-06-29] MEDS ORDERED: EPINEPHrine 1 MG/10 ML SYRINGE ONE (11:42)
[2017-06-29] MEDS ORDERED: SODIUM BICARBONATE 50 MEQ/50 ML SYRINGE IV ONE ×2 (11:43→13:26)
[2017-06-29] MEDS ORDERED: ALBUMIN 5% 12.5 GM/250 ML VIAL IV ONE (11:43)
[2017-06-29 11:58] LABS: PCO2 Patient Temp Venous 32.6 MM HG; PH Patient Temp Venous 7.481; PO2 Patient Temp Venous 30.2 MM HG; Potassium Heart/CVR 3.7 MMOL/L (3.5-5.1); VBG Base Excess 0.3 MEQ/L (0-4); VBG HCO3 24.2 MEQ/L (24-28); VBG Oxygen Saturation 74.2 %; VBG PCO2 35.6 MMHG (41-51); VBG PH 7.451; VBG PO2 34.8 MMHG (17-40)
[2017-06-29 12:22] LABS: Hematocrit Heart Surgery 23.8 PERCENT (37-47); Hemoglobin Heart Surgery 7.6 G/DL (12.0-16.0); PCO2 Patient Temp Venous 38.9 MM HG; PH Patient Temp Venous 7.425; PO2 Patient Temp Venous 47.3 MM HG; Potassium Heart/CVR 3.5 MMOL/L (3.5-5.1); VBG Base Excess 1.1 MEQ/L (0-4); VBG HCO3 25.3 MEQ/L (24-28); VBG Oxygen Saturation 84.2 %; VBG PCO2 38.9 MMHG (41-51); VBG PH 7.425; VBG PO2 47.3 MMHG (17-40)
[2017-06-29 12:49] LABS: PCO2 Patient Temp Venous 34.6 MM HG; PH Patient Temp Venous 7.469; PO2 Patient Temp Venous 35.4 MM HG; Potassium Heart/CVR 4.3 MMOL/L (3.5-5.1); VBG Base Excess 1.6 MEQ/L (0-4); VBG HCO3 25.5 MEQ/L (24-28); VBG Oxygen Saturation 71.2 %; VBG PCO2 34.6 MMHG (41-51); VBG PH 7.469; VBG PO2 35.4 MMHG (17-40)
[2017-06-29] MEDS ORDERED: THROMBIN TOPICAL (RECOMBINANT) 5,000 UNIT VIAL TOP ONE (13:14)
[2017-06-29 13:25] LABS: ABG Base Excess -1.3 MMOL/L (-2.5-2.5); ABG HCO3 22.7 MMOL/L (20-26); ABG Oxygen Saturation 96.3 % (95-100); ABG PCO2 35.2 MM HG (35-48); ABG PH 7.428 (7.35-7.45); ABG PO2 93.9 MM HG (80-95); ABG TCO2 23.8 MMOL/L (23-27); Glucose Heart Surgery 181 MG/DL (74-106); Hemoglobin Heart Surgery 9.1 G/DL (12.0-16.0); Ionized Calcium Arterial 1.57 MMOL/L (1.21-1.46); Potassium Heart/CVR 3.7 MMOL/L (3.5-5.1); Sodium Heart/CVR 132 MMOL/L (135-145)
[2017-06-29] MEDS ORDERED: ALBUMIN 25% 25 GM/100 ML VIAL IV ONE (13:26)
[2017-06-29] MEDS ORDERED: PROTAMINE SULFATE 250 MG/25 ML VIAL IV ONE (13:26)
[2017-06-29] MEDS ORDERED: FUROSEMIDE 20 MG/2 ML VIAL ONE (13:27)
[2017-06-29] MEDS ORDERED: MAGNESIUM SULFATE 1 GM/2 ML VIAL ONE (13:27)
[2017-06-29] MEDS ORDERED: POTASSIUM CHLORIDE 20 MEQ/10 ML VIAL ONE (13:27)
[2017-06-29] MEDS ORDERED: methylPREDNISolone SOD SUC 1,000 MG/8 ML VIAL ONE (13:27)
[2017-06-29] MEDS ORDERED: HEPARIN 10,000 UNIT/10 ML VIAL ONE (13:27)
[2017-06-29] MEDS ORDERED: DEXTROSE 5% KCL 20 MEQ 20 MEQ/1,000 ML BAG IV ONE (13:28)
[2017-06-29 13:29] LABS: Patient Temperature 37 CELCIUS
[2017-06-29] MEDS ORDERED: MAGNESIUM SULF RIDER 4 GM in PREMIX 1 EACH IV PRN (14:16)
[2017-06-29] MEDS ORDERED: MAGNESIUM SULF RIDER 2 GM in PREMIX 1 EACH IV PRN (14:16)
[2017-06-29] MEDS ORDERED: CHLORHEXIDINE 4% SOLN 118 ML BOTTLE TOP PRN (14:16)
[2017-06-29] MEDS ORDERED: CALCIUM CHLORIDE 1,000 MG/10 ML SYRINGE IV PRN (14:16)
[2017-06-29] MEDS ORDERED: POTASSIUM CHLORIDE RIDER 10 MEQ in PREMIX 1 EACH IV PRN (14:16)
[2017-06-29] MEDS ORDERED: ONDANSETRON 4 MG/2 ML VIAL IV PRN (14:16)
[2017-06-29] MEDS ORDERED: ACETAMINOPHEN 650 MG SUPP RECTAL PRN (14:16)
[2017-06-29] MEDS ORDERED: ALBUMIN 5% 12.5 GM in PREMIX 1 EACH IV PRN (14:16)
[2017-06-29] MEDS ORDERED: MIDAZOLAM 2 MG/2 ML VIAL IV PRN (14:16)
[2017-06-29] MEDS ORDERED: SODIUM CHLORIDE 0.9% 250 ML IV PRN (14:16)
[2017-06-29] MEDS ORDERED: DEXTROSE 50% 25 GM/50 ML VIAL IV PRN ×2 (14:16)
[2017-06-29] MEDS ORDERED: INSULIN REGULAR 100 UNIT/ML IV PRN ×2 (14:16→16:25)
[2017-06-29] MEDS ORDERED: EPINEPHrine 1 MG/ML VIAL ONE (14:20)
[2017-06-29] MEDS ORDERED: INSULIN REGULAR DRIP 100 ML IV SCH ×2 (14:30→17:00)
[2017-06-29] MEDS ORDERED: ETOMIDATE 40 MG/20 ML VIAL IV ONE (14:32)
[2017-06-29] MEDS ORDERED: SUFentanil 250 MCG/5 ML AMP ONE (14:35)
[2017-06-29] MEDS ORDERED: MINERAL OIL/PETROLATUM OPH OINT 3.5 GM TUBE ONE (14:36)
[2017-06-29] MEDS ORDERED: MIDAZOLAM 10 MG/2 ML VIAL ONE (14:36)
[2017-06-29] MEDS ORDERED: PHENYLEPHRINE 50 MG/5 ML VIAL ONE (14:37)
[2017-06-29] MEDS ORDERED: LACTATED RINGERS 1,000 ML IV ONE (14:37)
[2017-06-29] MEDS ORDERED: VECURONIUM 10 MG VIAL IV ONE (14:37)
[2017-06-29] MEDS ORDERED: NITROGLYCERIN DRIP 50 MG/250 ML BOTTLE IV ONE ×2 (14:37→20:27)
[2017-06-29] MEDS ORDERED: SODIUM CHLORIDE 0.9% 1,000 ML IV ONE (14:37)
[2017-06-29] MEDS ORDERED: SODIUM CHLORIDE 0.9% 250 ML IV ONE (14:37)
[2017-06-29] MEDS: CHLORHEXIDINE 4% SOLN 118 ML BOTTLE TOP SCH ×2 (15:23→15:25)
[2017-06-29] MEDS ORDERED: HEPARIN/NACL 0.9% 2 UNITS/ML 1,000 ML IV ONE (15:24)
[2017-06-29 15:41] LABS: ABG Base Excess -0.5 MMOL/L (-2.5-2.5); ABG Oxygen Saturation 97.1 % (95-100); ABG PCO2 39.6 MM HG (35-48); ABG PH 7.395 (7.35-7.45); ABG TCO2 20.2 MMOL/L (23-27); Glucose Heart Surgery 222 MG/DL (74-106); Hematocrit Heart Surgery 50.4 PERCENT (37-47); Hemoglobin Heart Surgery 16.5 G/DL (12.0-16.0); Potassium Heart/CVR 3.1 MMOL/L (3.5-5.1)
[2017-06-29 15:45] LABS: Basophils % 0.1 % (0.0-0.8); Eosinophils % 0.3 % (0.00-10.9); Hemoglobin 10.8 GM/DL (12.0-16.0); Immature Granulocytes % 0.7 %; Immature Granulocytes Absolute 0.05 #; Lymphocytes # 0.7 10*3/uL (1.4-4.0); Lymphocytes % 9.4 % (21.3-54.2); Mean Corpuscular HGB Conc 33.8 GM/DL (32-36); Mean Corpuscular Hemoglobin 29 PG (27-34); Mean Corpuscular Volume 85.3 FL (87-102); Mean Platelet Volume 10.4 FL (9.6-12.0); Monocytes # 0.5 10*3/uL (0.11-0.8); Monocytes % 7.1 % (1.7-12.7); Neutrophils # 6.1 10*3/uL (1.4-7.4); Neutrophils % 82.4 % (38.7-73.9); Platelet Count 135 T/CUMM (130-400); Red Blood Count 3.75 MC/CUMM (3.8-5.5); White Blood Count 7.4 T/CUMM (4-12)
[2017-06-29 15:55] LABS: INR 1.1; PT Patient Result 11.2 SECS; Partial Thromboplastin Time 27.3 SECS (0-40)
[2017-06-29 16:03] LABS: Lactic Acid 2.7 MMOL/L (0.4-2.0)
[2017-06-29 16:14] LABS: Blood Urea Nitrogen 9 MG/DL (7-18); Calcium 9.4 MG/DL (8.5-10.1); Glucose 218 MG/DL (74-106); Magnesium 2.3 MG/DL (1.8-2.4); Osmolality,Calculated 286.3 MOS/KG (273-304); Potassium 3.3 MMOL/L (3.5-5.1); Sodium 141 MMOL/L (136-145)
[2017-06-29] MEDS: POTASSIUM CHLORIDE RIDER 20 MEQ in PREMIX 1 EACH IV PRN ×2 (17:12→23:23)
[2017-06-29 20:07] LABS: Lactic Acid 4.2 MMOL/L (0.4-2.0)
[2017-06-29] MEDS: MEPERIDINE 25 MG/1 ML VIAL IV PRN (20:24)
[2017-06-29] MEDS ORDERED: NITROGLYCERIN DRIP 50 MG/250 ML BOTTLE IV SCH (20:30)
[2017-06-29] MEDS ORDERED: PROMETHAZINE INJ 25 MG in SODIUM CHLORIDE 0.9% 50 ML IV PRN (21:15)
[2017-06-29] MEDS ORDERED: hydrALAZINE 20 MG/1 ML VIAL IV ONE (21:15)
[2017-06-29] MEDS ORDERED: NITROPRUSSIDE 50 MG/2 ML VIAL ONE (21:20)
[2017-06-29] MEDS ORDERED: hydrALAZINE 20 MG/1 ML VIAL ONE (21:20)
[2017-06-29] MEDS ORDERED: NITROPRUSSIDE 100 MG in DEXTROSE 5% 250 ML IV SCH (21:30)
[2017-06-29 22:35] LABS: ABG Base Excess 0.6 MMOL/L (-2.5-2.5); ABG HCO3 24.9 MMOL/L (20-26); ABG Oxygen Saturation 98.2 % (95-100); ABG PH 7.475 (7.35-7.45); ABG TCO2 21.2 MMOL/L (23-27); Glucose Heart Surgery 165 MG/DL (74-106); Hematocrit Heart Surgery 32.2 PERCENT (37-47); Hemoglobin Heart Surgery 10.4 G/DL (12.0-16.0)
[2017-06-29] MEDS: CEFUROXIME INJ 1,500 MG in SYRINGE 1 EACH IV SCH (22:37)
[2017-06-29] MEDS: CHLORHEXIDINE 0.12% ORAL RINSE 60 ML BOTTLE SWISH/SPIT SCH (22:37)
[2017-06-30] MEDS: PROMETHAZINE 25 MG/1 ML VIAL IM PRN ×2 (00:17→06:07)
[2017-06-30] MEDS: POTASSIUM CHLORIDE RIDER 20 MEQ in PREMIX 1 EACH IV PRN ×2 (00:24→05:53)
[2017-06-30] MEDS: MEPERIDINE 25 MG/1 ML VIAL IV PRN (00:33)
[2017-06-30] MEDS: SODIUM CHLORIDE 0.45% 1,000 ML IV SCH ×4 (03:34→19:12)
[2017-06-30 04:43] LABS: Basophils % 0.1 % (0.0-0.8); Hematocrit 27.8 VOL% (35.7-47.0); Hemoglobin 9.4 GM/DL (12.0-16.0); Immature Granulocytes % 0.6 %; Immature Granulocytes Absolute 0.07 #; Lymphocytes # 0.4 10*3/uL (1.4-4.0); Lymphocytes % 3.7 % (21.3-54.2); Mean Corpuscular HGB Conc 33.8 GM/DL (32-36); Mean Corpuscular Hemoglobin 29 PG (27-34); Mean Corpuscular Volume 84.8 FL (87-102); Mean Platelet Volume 10.8 FL (9.6-12.0); Monocytes # 0.4 10*3/uL (0.11-0.8); Monocytes % 3.3 % (1.7-12.7); Neutrophils # 11.1 10*3/uL (1.4-7.4); Neutrophils % 92.3 % (38.7-73.9); Platelet Count 140 T/CUMM (130-400); Red Blood Count 3.28 MC/CUMM (3.8-5.5); Red Cell Distribution Width 14.1 % (9.3-17.3)
[2017-06-30 05:16] LABS: Calcium 8.2 MG/DL (8.5-10.1)
[2017-06-30 05:17] LABS: Band Neutrophils 4 % (0-10); Giant Platelets Few; Hypochromasia 1+; Lymphocytes 3 % (20-55); Magnesium 1.6 MG/DL (1.8-2.4); Osmolality,Calculated 281.3 MOS/KG (273-304); Ovalocytes Slight; Platelet Estimate Normal; Potassium 3.8 MMOL/L (3.5-5.1); Segmented Neutrophils 89 % (50-85); Total Cells Counted 100
[2017-06-30] MEDS ORDERED: NON-FORMULARY MEDICATION (Aspirin/Acetaminophen/Caffeine [Excedrin Migraine Caplet] 1 EACH PO PRN (07:09)
[2017-06-30] MEDS ORDERED: FUROSEMIDE 40 MG/4 ML VIAL IV ONE ×2 (07:54→21:48)
[2017-06-30] MEDS: ALBUTEROL/IPRATROPIUM 3 ML NEB RESP TX SCH ×5 (08:10→22:24)
[2017-06-30] MEDS: INSULIN REGULAR 100 UNIT/ML SUBCUT SCH ×3 (08:48→20:27)
[2017-06-30 08:50] LABS: ABG Base Excess 3.9 MMOL/L (-2.5-2.5); ABG HCO3 27.7 MMOL/L (20-26); ABG PCO2 34.2 MM HG (35-48); ABG PH 7.503 (7.35-7.45); ABG PO2 53.7 MM HG (80-95); ABG TCO2 24.3 MMOL/L (23-27); Glucose Heart Surgery 119 MG/DL (74-106); Hematocrit Heart Surgery 31.3 PERCENT (37-47); Hemoglobin Heart Surgery 10.1 G/DL (12.0-16.0); Potassium Heart/CVR 3.8 MMOL/L (3.5-5.1)
[2017-06-30] MEDS: PROMETHAZINE 25 MG TABLET PO PRN ×2 (08:58→19:45)
[2017-06-30] MEDS: CARVEDILOL 6.25 MG TABLET PO SCH ×2 (08:58→20:33)
[2017-06-30] MEDS: LISINOPRIL 20 MG TABLET PO SCH (08:58)
[2017-06-30] MEDS ORDERED: CYANOCOBALAMIN 1000 MCG/1 ML VIAL IM SCH (09:00)
[2017-06-30] MEDS ORDERED: FUROSEMIDE 40 MG TABLET PO SCH (09:00)
[2017-06-30] MEDS: CEFUROXIME INJ 1,500 MG in SYRINGE 1 EACH IV SCH ×2 (10:00→22:15)
[2017-06-30] MEDS: ASPIRIN EC 325 MG TABLET PO SCH (10:15)
[2017-06-30] MEDS: PARoxetine 10 MG TABLET PO SCH (10:15)
[2017-06-30] MEDS: DICYCLOMINE 10 MG CAPSULE PO SCH ×3 (18:34→20:33)
[2017-06-30] MEDS: BUDESONIDE 3 MG CAPSULE PO SCH ×3 (18:35→20:33)
[2017-06-30] MEDS: CHLORHEXIDINE 0.12% ORAL RINSE 60 ML BOTTLE SWISH/SPIT SCH ×2 (18:43→20:42)
[2017-06-30] MEDS: PIPERACILLIN/TAZOBACTAM 3,375 MG in SODIUM CHLORIDE 0.9% 100 ML IV SCH ×2 (19:08→19:29)
[2017-06-30] MEDS: CYCLOBENZAPRINE 10 MG TABLET PO SCH (20:33)
[2017-06-30] MEDS: MEPERIDINE 50 MG TABLET PO PRN (20:33)
[2017-06-30] MEDS: ATORVASTATIN 40 MG TABLET PO SCH (20:33)
[2017-07-01] MEDS: PIPERACILLIN/TAZOBACTAM 3,375 MG in SODIUM CHLORIDE 0.9% 100 ML IV SCH ×3 (02:15→17:44)
[2017-07-01] MEDS: ALBUTEROL/IPRATROPIUM 3 ML NEB RESP TX SCH ×6 (03:39→23:34)
[2017-07-01] MEDS: INSULIN REGULAR 100 UNIT/ML SUBCUT SCH ×6 (05:00→20:25)
[2017-07-01] MEDS: PROMETHAZINE 25 MG TABLET PO PRN (05:05)
[2017-07-01] MEDS: MEPERIDINE 50 MG TABLET PO PRN (05:05)
[2017-07-01 05:42] LABS: Basophils % 0.1 % (0.0-0.8); Hemoglobin 9.6 GM/DL (12.0-16.0); Immature Granulocytes % 1.1 %; Lymphocytes # 0.8 10*3/uL (1.4-4.0); Lymphocytes % 4.5 % (21.3-54.2); Mean Corpuscular HGB Conc 33.1 GM/DL (32-36); Mean Corpuscular Hemoglobin 29 PG (27-34); Mean Corpuscular Volume 86.1 FL (87-102); Mean Platelet Volume 11.5 FL (9.6-12.0); Monocytes # 1.1 10*3/uL (0.11-0.8); Monocytes % 6.2 % (1.7-12.7); Neutrophils % 88.1 % (38.7-73.9); Platelet Count 160 T/CUMM (130-400); Red Blood Count 3.37 MC/CUMM (3.8-5.5); Red Cell Distribution Width 14.5 % (9.3-17.3); White Blood Count 18.1 T/CUMM (4-12)
[2017-07-01 06:12] LABS: Calcium 8.3 MG/DL (8.5-10.1); Magnesium 2.6 MG/DL (1.8-2.4); Osmolality,Calculated 277.7 MOS/KG (273-304); Potassium 3.7 MMOL/L (3.5-5.1)
[2017-07-01 06:42] LABS: Hypochromasia 1+; Microcytosis 1+
[2017-07-01] MEDS: SODIUM CHLORIDE 0.45% 1,000 ML IV SCH ×2 (08:10→08:34)
[2017-07-01] MEDS: PARoxetine 10 MG TABLET PO SCH (08:27)
[2017-07-01] MEDS: CARVEDILOL 6.25 MG TABLET PO SCH (08:27)
[2017-07-01] MEDS: LISINOPRIL 20 MG TABLET PO SCH (08:28)
[2017-07-01] MEDS: ASPIRIN EC 325 MG TABLET PO SCH (08:28)
[2017-07-01] MEDS: BUDESONIDE 3 MG CAPSULE PO SCH ×3 (08:29→21:48)
[2017-07-01] MEDS: DICYCLOMINE 10 MG CAPSULE PO SCH ×3 (08:29→21:43)
[2017-07-01] MEDS: CHLORHEXIDINE 0.12% ORAL RINSE 60 ML BOTTLE SWISH/SPIT SCH ×2 (08:34→23:27)
[2017-07-01] MEDS ORDERED: LACTATED RINGERS 500 ML IV ONE ×3 (11:34→16:39)
[2017-07-01] MEDS ORDERED: CARVEDILOL 3.125 MG TABLET PO SCH (21:00)
[2017-07-01] MEDS: CYCLOBENZAPRINE 10 MG TABLET PO SCH (21:43)
[2017-07-01] MEDS: CETIRIZINE 10 MG TABLET PO PRN (21:43)
[2017-07-01] MEDS: ATORVASTATIN 40 MG TABLET PO SCH (21:43)
[2017-07-02] MEDS: INSULIN REGULAR 100 UNIT/ML SUBCUT SCH ×6 (00:11→22:17)
[2017-07-02] MEDS: PIPERACILLIN/TAZOBACTAM 3,375 MG in SODIUM CHLORIDE 0.9% 100 ML IV SCH ×3 (02:40→18:00)
[2017-07-02] MEDS: ALBUTEROL/IPRATROPIUM 3 ML NEB RESP TX SCH ×5 (04:45→19:50)
[2017-07-02 06:16] LABS: Basophils % 0.1 % (0.0-0.8); Eosinophils # 0.1 10*3/uL (0.0-0.87); Eosinophils % 0.7 % (0.00-10.9); Hematocrit 25.7 VOL% (35.7-47.0); Hemoglobin 8.5 GM/DL (12.0-16.0); Immature Granulocytes % 0.7 %; Immature Granulocytes Absolute 0.06 #; Lymphocytes # 1.2 10*3/uL (1.4-4.0); Lymphocytes % 13.4 % (21.3-54.2); Mean Corpuscular HGB Conc 33.1 GM/DL (32-36); Mean Corpuscular Hemoglobin 29 PG (27-34); Mean Corpuscular Volume 87.4 FL (87-102); Mean Platelet Volume 11.5 FL (9.6-12.0); Monocytes # 0.7 10*3/uL (0.11-0.8); Monocytes % 7.4 % (1.7-12.7); Neutrophils % 77.7 % (38.7-73.9); Platelet Count 102 T/CUMM (130-400); Red Blood Count 2.94 MC/CUMM (3.8-5.5); Red Cell Distribution Width 14.6 % (9.3-17.3)
[2017-07-02 06:21] LABS: Magnesium 2.4 MG/DL (1.8-2.4); Osmolality,Calculated 284.1 MOS/KG (273-304); Potassium 3.7 MMOL/L (3.5-5.1)
[2017-07-02] MEDS: CHLORHEXIDINE 0.12% ORAL RINSE 60 ML BOTTLE SWISH/SPIT SCH ×2 (08:46→21:55)
[2017-07-02] MEDS: LISINOPRIL 20 MG TABLET PO SCH (08:47)
[2017-07-02] MEDS: PARoxetine 10 MG TABLET PO SCH (08:47)
[2017-07-02] MEDS: ASPIRIN EC 325 MG TABLET PO SCH (08:47)
[2017-07-02] MEDS: DICYCLOMINE 10 MG CAPSULE PO SCH ×3 (08:47→21:49)
[2017-07-02] MEDS: BUDESONIDE 3 MG CAPSULE PO SCH ×3 (08:47→21:49)
[2017-07-02] MEDS: MEPERIDINE 50 MG TABLET PO PRN (10:01)
[2017-07-02] MEDS: PROMETHAZINE 25 MG TABLET PO PRN (10:01)
[2017-07-02] MEDS ORDERED: LEVOFLOXACIN INJ 750 MG in PREMIX 1 EACH IV SCH (14:00)
[2017-07-02] MEDS: CYCLOBENZAPRINE 10 MG TABLET PO SCH (21:49)
[2017-07-02] MEDS: CETIRIZINE 10 MG TABLET PO PRN (21:49)
[2017-07-02] MEDS: ATORVASTATIN 40 MG TABLET PO SCH (21:49)
[2017-07-03] MEDS: ALBUTEROL/IPRATROPIUM 3 ML NEB RESP TX SCH ×5 (00:23→14:00)
[2017-07-03] MEDS: INSULIN REGULAR 100 UNIT/ML SUBCUT SCH ×4 (00:33→15:33)
[2017-07-03] MEDS: PIPERACILLIN/TAZOBACTAM 3,375 MG in SODIUM CHLORIDE 0.9% 100 ML IV SCH ×2 (01:53→09:28)
[2017-07-03 05:08] LABS: Basophils % 0.3 % (0.0-0.8); Eosinophils # 0.2 10*3/uL (0.0-0.87); Eosinophils % 2.4 % (0.00-10.9); Hematocrit 28.5 VOL% (35.7-47.0); Hemoglobin 9.1 GM/DL (12.0-16.0); Immature Granulocytes % 0.5 %; Immature Granulocytes Absolute 0.04 #; Lymphocytes % 13.8 % (21.3-54.2); Mean Corpuscular HGB Conc 31.9 GM/DL (32-36); Mean Corpuscular Hemoglobin 28 PG (27-34); Mean Corpuscular Volume 88.5 FL (87-102); Monocytes # 0.5 10*3/uL (0.11-0.8); Monocytes % 6.2 % (1.7-12.7); Neutrophils # 5.7 10*3/uL (1.4-7.4); Neutrophils % 76.8 % (38.7-73.9); Platelet Count 131 T/CUMM (130-400); Red Blood Count 3.22 MC/CUMM (3.8-5.5); Red Cell Distribution Width 14.5 % (9.3-17.3); White Blood Count 7.5 T/CUMM (4-12)
[2017-07-03 05:36] LABS: Magnesium 2.3 MG/DL (1.8-2.4); Osmolality,Calculated 282.1 MOS/KG (273-304); Potassium 3.9 MMOL/L (3.5-5.1)
[2017-07-03] MEDS: BUDESONIDE 3 MG CAPSULE PO SCH ×2 (08:59→15:33)
[2017-07-03] MEDS: DICYCLOMINE 10 MG CAPSULE PO SCH ×2 (08:59→15:33)
[2017-07-03] MEDS: LISINOPRIL 20 MG TABLET PO SCH (08:59)
[2017-07-03] MEDS: PARoxetine 10 MG TABLET PO SCH (08:59)
[2017-07-03] MEDS: CHLORHEXIDINE 0.12% ORAL RINSE 60 ML BOTTLE SWISH/SPIT SCH (09:00)
[2017-07-03] MEDS: ASPIRIN EC 325 MG TABLET PO SCH (09:00)
[2017-07-03] MEDS ORDERED: LEVOFLOXACIN 750 MG TABLET PO SCH (09:00)
[2017-07-03 12:56] VITALS: BP 153/70
[2017-07-03] MEDS ORDERED: ALBUTEROL 2.5 MG/3 ML NEB RESP TX SCH (15:00)
== END 2017-07-03 15:25 | disposition home health service (06) | DRG 216 ==
LOC: N.EDINP 17:10 → N.ED 17:10 → N.TELES 21:23 → N.CVR 06-29 13:51 → N.ICU 06-30 11:15 → N.TELES 07-01 13:33
PROVIDERS: ADMIT Family Medicine; ATTEND Family Medicine

== ENCOUNTER 2017-08-23 12:20 | Inpatient (IN) ==
[2017-08-23] MEDS ORDERED: VANCOMYCIN INJ 1,250 MG in SODIUM CHLORIDE 0.9% 250 ML IV STA (14:23)
[2017-08-23 15:12] LABS: Basophils % 0.2 % (0.0-0.8); Eosinophils # 0.2 10*3/uL (0.0-0.87); Eosinophils % 2.1 % (0.00-10.9); Hematocrit 30.4 VOL% (35.7-47.0); Hemoglobin 9.6 GM/DL (12.0-16.0); Immature Granulocytes % 0.9 %; Immature Granulocytes Absolute 0.07 #; Lymphocytes # 1.6 10*3/uL (1.4-4.0); Lymphocytes % 19.6 % (21.3-54.2); Mean Corpuscular HGB Conc 31.6 GM/DL (32-36); Mean Corpuscular Hemoglobin 26 PG (27-34); Mean Corpuscular Volume 81.9 FL (87-102); Mean Platelet Volume 9.1 FL (9.6-12.0); Monocytes # 0.6 10*3/uL (0.11-0.8); Monocytes % 7.3 % (1.7-12.7); Neutrophils # 5.6 10*3/uL (1.4-7.4); Neutrophils % 69.9 % (38.7-73.9); Platelet Count 382 T/CUMM (130-400); Red Blood Count 3.71 MC/CUMM (3.8-5.5); Red Cell Distribution Width 14.6 % (9.3-17.3); White Blood Count 8.1 T/CUMM (4-12)
[2017-08-23 15:38] LABS: Albumin 3.1 G/DL (3.4-5.0); Bilirubin,Total 0.4 MG/DL (0.2-1.0); Calcium 9.3 MG/DL (8.5-10.1); Total Protein 8.1 G/DL (6.4-8.3)
[2017-08-23] MEDS ORDERED: traMADol 50 MG TABLET PO PRN (17:51)
[2017-08-23] MEDS: DOCUSATE SODIUM 100 MG CAPSULE PO SCH (21:05)
[2017-08-24] MEDS: VANCOMYCIN INJ 1,250 MG in SODIUM CHLORIDE 0.9% 250 ML IV SCH ×2 (03:01→14:41)
[2017-08-24] MEDS ORDERED: LIDOCAINE 1%/EPI INJ 20 ML VIAL MISC INJ STA (08:18)
[2017-08-24] MEDS: PANTOPRAZOLE 40 MG TABLET PO SCH (08:28)
[2017-08-24] MEDS: DOCUSATE SODIUM 100 MG CAPSULE PO SCH ×2 (08:28→20:35)
[2017-08-24] MEDS: cefTRIAXone 1,000 MG in SYRINGE 1 EACH IV SCH (08:29)
[2017-08-24] MEDS ORDERED: MEPERIDINE 25 MG/1 ML VIAL IV ONE (09:22)
[2017-08-24] MEDS: diphenhydrAMINE CAP 25 MG CAPSULE PO PRN (20:35)
[2017-08-24] MEDS ORDERED: HydrOXYzine PAMOATE 25 MG CAPSULE PO ONE ×2 (22:12→23:00)
[2017-08-25] MEDS: VANCOMYCIN INJ 1,250 MG in SODIUM CHLORIDE 0.9% 250 ML IV SCH ×3 (05:33→22:04)
[2017-08-25] MEDS: hydrOXYzine HCL 10 MG TABLET PO PRN ×3 (08:03→21:09)
[2017-08-25] MEDS ORDERED: LIDOCAINE 2% 20 ML VIAL ONE (08:41)
[2017-08-25] MEDS: PANTOPRAZOLE 40 MG TABLET PO SCH (10:29)
[2017-08-25] MEDS: diphenhydrAMINE CAP 25 MG CAPSULE PO PRN (10:30)
[2017-08-25] MEDS: cefTRIAXone 1,000 MG in SYRINGE 1 EACH IV SCH (10:30)
[2017-08-25] MEDS: DOCUSATE SODIUM 100 MG CAPSULE PO SCH ×2 (10:33→21:10)
[2017-08-25] MEDS ORDERED: MEPERIDINE 50 MG TABLET PO PRN (22:24)
[2017-08-25] MEDS: CETIRIZINE 10 MG TABLET PO SCH (22:47)
[2017-08-25] MEDS: PROMETHAZINE 25 MG TABLET PO PRN (22:47)
[2017-08-25] MEDS: CYCLOBENZAPRINE 10 MG TABLET PO SCH (22:47)
[2017-08-25] MEDS: MELATONIN 3 MG TABLET PO SCH (22:47)
[2017-08-26] MEDS: hydrOXYzine HCL 10 MG TABLET PO PRN ×3 (06:18→21:54)
[2017-08-26 07:21] LABS: Osmolality,Calculated 278.4 MOS/KG (273-304); Potassium 4.1 MMOL/L (3.5-5.1)
[2017-08-26] MEDS: cefTRIAXone 1,000 MG in SYRINGE 1 EACH IV SCH (10:07)
[2017-08-26] MEDS: PARoxetine 20 MG TABLET PO SCH (10:08)
[2017-08-26] MEDS: PANTOPRAZOLE 40 MG TABLET PO SCH (10:08)
[2017-08-26] MEDS: CETIRIZINE 10 MG TABLET PO SCH ×2 (10:08→21:54)
[2017-08-26] MEDS: ASPIRIN CHEW 81 MG TABLET PO SCH (10:08)
[2017-08-26] MEDS: DOCUSATE SODIUM 100 MG CAPSULE PO SCH ×2 (10:08→22:02)
[2017-08-26] MEDS: VANCOMYCIN INJ 1,250 MG in SODIUM CHLORIDE 0.9% 250 ML IV SCH ×2 (10:33→22:01)
[2017-08-26] MEDS: CYCLOBENZAPRINE 10 MG TABLET PO SCH (21:54)
[2017-08-26] MEDS: PROMETHAZINE 25 MG TABLET PO PRN (21:54)
[2017-08-26] MEDS: MELATONIN 3 MG TABLET PO SCH (21:54)
[2017-08-27] MEDS: hydrOXYzine HCL 10 MG TABLET PO PRN (06:47)
[2017-08-27] MEDS: PANTOPRAZOLE 40 MG TABLET PO SCH (10:26)
[2017-08-27] MEDS: ASPIRIN CHEW 81 MG TABLET PO SCH (10:27)
[2017-08-27] MEDS: DOCUSATE SODIUM 100 MG CAPSULE PO SCH ×2 (10:27→21:16)
[2017-08-27] MEDS: CETIRIZINE 10 MG TABLET PO SCH ×2 (10:27→21:15)
[2017-08-27] MEDS: PARoxetine 20 MG TABLET PO SCH (10:27)
[2017-08-27] MEDS: VANCOMYCIN INJ 1,250 MG in SODIUM CHLORIDE 0.9% 250 ML IV SCH ×2 (10:28→21:21)
[2017-08-27] MEDS: methylPREDNISolone SOD SUC 40 MG/1 ML VIAL IV SCH ×2 (10:28→21:19)
[2017-08-27 10:51] LABS: Hemoglobin 9.3 GM/DL (12.0-16.0); Red Blood Count 3.65 MC/CUMM (3.8-5.5)
[2017-08-27 10:52] LABS: Basophils % 0.7 % (0.0-0.8); Eosinophils # 0.4 10*3/uL (0.0-0.87); Eosinophils % 6.2 % (0.00-10.9); Hematocrit 30.4 VOL% (35.7-47.0); Immature Granulocytes % 0.7 %; Immature Granulocytes Absolute 0.04 #; Lymphocytes % 16.5 % (21.3-54.2); Mean Corpuscular HGB Conc 30.6 GM/DL (32-36); Mean Corpuscular Hemoglobin 26 PG (27-34); Mean Corpuscular Volume 83.3 FL (87-102); Mean Platelet Volume 9.2 FL (9.6-12.0); Monocytes # 0.4 10*3/uL (0.11-0.8); Monocytes % 7.2 % (1.7-12.7); Neutrophils # 4.1 10*3/uL (1.4-7.4); Neutrophils % 68.7 % (38.7-73.9); Platelet Count 362 T/CUMM (130-400); Red Cell Distribution Width 14.6 % (9.3-17.3)
[2017-08-27 11:30] LABS: Alanine Aminotransferase 9 U/L (13-56); Alkaline Phosphatase 74 U/L (45-117); Aspartate Amino Transferase 14 U/L (0-37); Bilirubin,Total < 0.39 MG/DL (0.2-1.0); Blood Urea Nitrogen 13 MG/DL (7-18); Calcium 8.8 MG/DL (8.5-10.1); Glucose 104 MG/DL (74-106); Osmolality,Calculated 278.4 MOS/KG (273-304); Potassium 4.1 MMOL/L (3.5-5.1); Sodium 140 MMOL/L (136-145); Total Protein 7.3 G/DL (6.4-8.3)
[2017-08-27] MEDS: ALBUTEROL/IPRATROPIUM 3 ML NEB RESP TX SCH ×2 (13:33→20:35)
[2017-08-27] MEDS: MELATONIN 3 MG TABLET PO SCH (21:15)
[2017-08-27] MEDS: CYCLOBENZAPRINE 10 MG TABLET PO SCH (21:16)
[2017-08-27] MEDS: diphenhydrAMINE CAP 25 MG CAPSULE PO PRN (21:16)
[2017-08-28] MEDS: ALBUTEROL/IPRATROPIUM 3 ML NEB RESP TX SCH ×4 (01:05→21:02)
[2017-08-28 05:52] LABS: Basophils % 0.1 % (0.0-0.8); Eosinophils % 0.1 % (0.00-10.9); Hematocrit 27.2 VOL% (35.7-47.0); Hemoglobin 8.5 GM/DL (12.0-16.0); Immature Granulocytes % 0.9 %; Immature Granulocytes Absolute 0.08 #; Lymphocytes # 0.9 10*3/uL (1.4-4.0); Mean Corpuscular HGB Conc 31.3 GM/DL (32-36); Mean Corpuscular Hemoglobin 26 PG (27-34); Mean Corpuscular Volume 82.7 FL (87-102); Mean Platelet Volume 9.4 FL (9.6-12.0); Monocytes # 0.4 10*3/uL (0.11-0.8); Monocytes % 3.9 % (1.7-12.7); Neutrophils # 7.7 10*3/uL (1.4-7.4); Platelet Count 363 T/CUMM (130-400); Red Blood Count 3.29 MC/CUMM (3.8-5.5); Red Cell Distribution Width 14.6 % (9.3-17.3); White Blood Count 9.1 T/CUMM (4-12)
[2017-08-28 06:33] LABS: Calcium 8.5 MG/DL (8.5-10.1); Osmolality,Calculated 278.5 MOS/KG (273-304); Potassium 4.2 MMOL/L (3.5-5.1)
[2017-08-28] MEDS: VANCOMYCIN INJ 1,250 MG in SODIUM CHLORIDE 0.9% 250 ML IV SCH ×2 (09:26→20:50)
[2017-08-28] MEDS: methylPREDNISolone SOD SUC 40 MG/1 ML VIAL IV SCH ×2 (09:29→22:02)
[2017-08-28] MEDS: PARoxetine 20 MG TABLET PO SCH (09:30)
[2017-08-28] MEDS: ASPIRIN CHEW 81 MG TABLET PO SCH (09:30)
[2017-08-28] MEDS: PANTOPRAZOLE 40 MG TABLET PO SCH (09:30)
[2017-08-28] MEDS: CETIRIZINE 10 MG TABLET PO SCH ×2 (09:30→20:49)
[2017-08-28] MEDS: DOCUSATE SODIUM 100 MG CAPSULE PO SCH ×2 (09:30→20:49)
[2017-08-28] MEDS: MELATONIN 3 MG TABLET PO SCH (20:49)
[2017-08-28] MEDS: CYCLOBENZAPRINE 10 MG TABLET PO SCH (20:49)
[2017-08-29] MEDS: ALBUTEROL/IPRATROPIUM 3 ML NEB RESP TX SCH ×4 (01:08→20:54)
[2017-08-29] MEDS ORDERED: LIDOCAINE 2%/EPI 20 ML VIAL ONE (06:35)
[2017-08-29] MEDS ORDERED: PROMETHAZINE 25 MG/1 ML VIAL ONE (07:07)
[2017-08-29] MEDS ORDERED: HALOPERIDOL 5 MG/ML AMP IV ONE (08:26)
[2017-08-29] MEDS ORDERED: PROMETHAZINE IV PRN (08:32)
[2017-08-29] MEDS ORDERED: SODIUM CHLORIDE 0.9% IV PRN (08:32)
[2017-08-29] MEDS ORDERED: MEPERIDINE 25 MG/1 ML VIAL ONE ×2 (08:41→09:02)
[2017-08-29] MEDS: MEPERIDINE 25 MG/1 ML VIAL IV PRN ×2 (08:44→09:05)
[2017-08-29] MEDS ORDERED: PROPOFOL 200 MG/20 ML VIAL IV ONE (08:45)
[2017-08-29] MEDS ORDERED: MIDAZOLAM 2 MG/2 ML VIAL ONE (08:46)
[2017-08-29] MEDS ORDERED: ROCURONIUM 100 MG/10 ML VIAL IV ONE (08:46)
[2017-08-29] MEDS ORDERED: fentaNYL 100 MCG/2 ML VIAL ONE (08:46)
[2017-08-29] MEDS: VANCOMYCIN INJ 1,250 MG in SODIUM CHLORIDE 0.9% 250 ML IV SCH ×2 (09:52→21:24)
[2017-08-29] MEDS: methylPREDNISolone SOD SUC 40 MG/1 ML VIAL IV SCH ×2 (09:52→21:24)
[2017-08-29] MEDS: DOCUSATE SODIUM 100 MG CAPSULE PO SCH ×3 (16:25→21:25)
[2017-08-29] MEDS: CETIRIZINE 10 MG TABLET PO SCH ×2 (16:26→21:25)
[2017-08-29] MEDS: PANTOPRAZOLE 40 MG TABLET PO SCH (16:49)
[2017-08-29] MEDS: PARoxetine 20 MG TABLET PO SCH (16:49)
[2017-08-29] MEDS: ASPIRIN CHEW 81 MG TABLET PO SCH (16:49)
[2017-08-29] MEDS: MELATONIN 3 MG TABLET PO SCH (21:25)
[2017-08-29] MEDS: CYCLOBENZAPRINE 10 MG TABLET PO SCH (21:25)
[2017-08-30] MEDS: ALBUTEROL/IPRATROPIUM 3 ML NEB RESP TX SCH ×4 (01:50→21:08)
[2017-08-30] MEDS ORDERED: NON-FORMULARY MEDICATION (Aspirin/Acetaminophen/Caffeine [Excedrin Migraine Caplet] 1 EACH PO PRN (06:54)
[2017-08-30 07:56] LABS: Calcium 8.9 MG/DL (8.5-10.1); Osmolality,Calculated 283.3 MOS/KG (273-304); Potassium 4.5 MMOL/L (3.5-5.1)
[2017-08-30] MEDS ORDERED: CYANOCOBALAMIN 1000 MCG/1 ML VIAL IM SCH (09:00)
[2017-08-30] MEDS: DICYCLOMINE 10 MG CAPSULE PO SCH ×3 (09:08→21:18)
[2017-08-30] MEDS: PANTOPRAZOLE 40 MG TABLET PO SCH (09:09)
[2017-08-30] MEDS: CETIRIZINE 10 MG TABLET PO SCH ×2 (09:09→21:20)
[2017-08-30] MEDS: ASPIRIN CHEW 81 MG TABLET PO SCH (09:09)
[2017-08-30] MEDS: DOCUSATE SODIUM 100 MG CAPSULE PO SCH ×2 (09:09→21:20)
[2017-08-30] MEDS: PARoxetine 20 MG TABLET PO SCH (09:09)
[2017-08-30] MEDS: methylPREDNISolone SOD SUC 40 MG/1 ML VIAL IV SCH ×2 (09:10→21:19)
[2017-08-30] MEDS: LISINOPRIL 20 MG TABLET PO SCH (16:41)
[2017-08-30] MEDS: VANCOMYCIN INJ 1,250 MG in SODIUM CHLORIDE 0.9% 250 ML IV SCH ×2 (16:41→21:15)
[2017-08-30] MEDS ORDERED: FAMOTIDINE 20 MG TABLET PO SCH (21:00)
[2017-08-30] MEDS: MELATONIN 3 MG TABLET PO SCH (21:18)
[2017-08-30] MEDS: CYCLOBENZAPRINE 10 MG TABLET PO SCH (21:20)
[2017-08-31] MEDS: ALBUTEROL/IPRATROPIUM 3 ML NEB RESP TX SCH ×3 (01:28→13:30)
[2017-08-31 07:01] LABS: Basophils % 0.2 % (0.0-0.8); Hematocrit 29.3 VOL% (35.7-47.0); Hemoglobin 8.9 GM/DL (12.0-16.0); Immature Granulocytes % 1.6 %; Immature Granulocytes Absolute 0.13 #; Lymphocytes # 1.1 10*3/uL (1.4-4.0); Lymphocytes % 13.3 % (21.3-54.2); Mean Corpuscular HGB Conc 30.4 GM/DL (32-36); Mean Corpuscular Hemoglobin 26 PG (27-34); Mean Corpuscular Volume 84.7 FL (87-102); Mean Platelet Volume 9.3 FL (9.6-12.0); Monocytes # 0.3 10*3/uL (0.11-0.8); Monocytes % 4.1 % (1.7-12.7); Neutrophils # 6.5 10*3/uL (1.4-7.4); Neutrophils % 80.8 % (38.7-73.9); Platelet Count 340 T/CUMM (130-400); Red Blood Count 3.46 MC/CUMM (3.8-5.5); Red Cell Distribution Width 15.2 % (9.3-17.3); White Blood Count 8.1 T/CUMM (4-12)
[2017-08-31 07:30] LABS: Calcium 8.7 MG/DL (8.5-10.1); Osmolality,Calculated 280.4 MOS/KG (273-304); Potassium 4.3 MMOL/L (3.5-5.1)
[2017-08-31] MEDS: LISINOPRIL 20 MG TABLET PO SCH (08:50)
[2017-08-31] MEDS: methylPREDNISolone SOD SUC 40 MG/1 ML VIAL IV SCH (08:50)
[2017-08-31] MEDS: CETIRIZINE 10 MG TABLET PO SCH (08:51)
[2017-08-31] MEDS: PARoxetine 20 MG TABLET PO SCH (08:51)
[2017-08-31] MEDS: DICYCLOMINE 10 MG CAPSULE PO SCH ×2 (08:51→17:29)
[2017-08-31] MEDS: ASPIRIN CHEW 81 MG TABLET PO SCH (08:52)
[2017-08-31] MEDS: PANTOPRAZOLE 40 MG TABLET PO SCH (08:52)
[2017-08-31] MEDS: VANCOMYCIN INJ 1,250 MG in SODIUM CHLORIDE 0.9% 250 ML IV SCH ×2 (08:59→17:30)
[2017-08-31] MEDS: DOCUSATE SODIUM 100 MG CAPSULE PO SCH (10:44)
[2017-08-31 16:32] VITALS: BP 129/76
== END 2017-08-31 19:40 | disposition home or self-care (01) | DRG 857 ==
LOC: N.ED 12:20 → N.EDINP 12:20 → N.2E 16:48
PROVIDERS: ADMIT Family Medicine; ATTEND Family Medicine

== ENCOUNTER 2018-03-26 16:25 | Observation (INO) ==
[2018-03-26] MEDS ORDERED: methylPREDNISolone SOD SUC 125 MG/2 ML VIAL IV STA (17:01)
[2018-03-26] MEDS ORDERED: MEPERIDINE 25 MG/1 ML VIAL IM STA (17:02)
[2018-03-26] MEDS ORDERED: PROMETHAZINE 25 MG/1 ML VIAL IM STA (17:02)
[2018-03-26] MEDS ORDERED: DICYCLOMINE 20 MG TABLET PO STA (17:02)
[2018-03-26 18:27] LABS: Basophils % 0.3 % (0.0-0.8); Eosinophils % 0.3 % (0.00-10.9); Hematocrit 31.7 VOL% (35.7-47.0); Hemoglobin 10.8 GM/DL (12.0-16.0); Immature Granulocytes % 0.5 %; Immature Granulocytes Absolute 0.04 #; Lymphocytes # 1.2 10*3/uL (1.4-4.0); Lymphocytes % 16.2 % (21.3-54.2); Mean Corpuscular HGB Conc 34.1 GM/DL (32-36); Mean Corpuscular Hemoglobin 30 PG (27-34); Mean Platelet Volume 9.7 FL (9.6-12.0); Monocytes # 0.3 10*3/uL (0.11-0.8); Monocytes % 4.2 % (1.7-12.7); Neutrophils # 5.8 10*3/uL (1.4-7.4); Neutrophils % 78.5 % (38.7-73.9); Platelet Count 201 T/CUMM (130-400); Red Blood Count 3.56 MC/CUMM (3.8-5.5); Red Cell Distribution Width 13.3 % (9.3-17.3); White Blood Count 7.4 T/CUMM (4-12)
[2018-03-26] MEDS ORDERED: diphenhydrAMINE 50 MG/1 ML VIAL ONE (18:36)
[2018-03-26] MEDS ORDERED: diphenhydrAMINE 50 MG/1 ML VIAL IV STA (18:45)
[2018-03-26 19:12] LABS: Alanine Aminotransferase 17 U/L (13-56); Albumin 3.5 G/DL (3.4-5.0); Alkaline Phosphatase 64 U/L (45-117); Aspartate Amino Transferase 22 U/L (0-37); Bilirubin,Total < 0.39 MG/DL (0.2-1.0); Blood Urea Nitrogen 13 MG/DL (7-18); Calcium 9.1 MG/DL (8.5-10.1); Glucose 90 MG/DL (74-106); Osmolality,Calculated 278.4 MOS/KG (273-304); Potassium 4.2 MMOL/L (3.5-5.1); Sodium 140 MMOL/L (136-145); Total Protein 6.5 G/DL (6.4-8.3)
[2018-03-26 19:30] LABS: Apearance,Urine Slightly Hazy (Clear); Bacteria,Urine Occasional /HPF (Few); Bilirubin,Urine Negative (Negative); Blood, Urine Negative (Negative); Glucose,Urine (UA) Negative (Negative); Hyaline Casts,Urine 4 /LPF (0-3); Ketones,Urine Negative (Negative); Mucus,Urine Occasional /LPF (Occasional); Nitrite,Urine Positive (Negative); Protein,Urine Negative; RBC,Urine 2 /HPF (0-4); Squamous Epithelial Cell,Urine Occasional /HPF (0-10); Urine Color Yellow (Yellow); Urine Specific Gravity 1.009 (1.001-1.035); Urine Urobilinogen < 2.0 EU/DL (0.2-1.0); WBC,Urine 261 /HPF (0-6)
[2018-03-26] MEDS ORDERED: cefTRIAXone 1,000 MG in SODIUM CHLORIDE 0.9% 100 ML IV STA (20:12)
[2018-03-26] MEDS ORDERED: NALOXONE 0.4 MG/ML VIAL IV PRN (21:26)
[2018-03-26] MEDS: LACTATED RINGERS 1,000 ML IV SCH (22:56)
[2018-03-27] MEDS: PROMETHAZINE 25 MG/1 ML VIAL IM PRN ×2 (01:30→23:11)
[2018-03-27] MEDS: MEPERIDINE 25 MG/1 ML VIAL IV PRN ×2 (01:30→23:12)
[2018-03-27] MEDS: LACTATED RINGERS 1,000 ML IV SCH ×3 (04:54→21:34)
[2018-03-27] MEDS: PANTOPRAZOLE 40 MG TABLET PO SCH (09:16)
[2018-03-27] MEDS: cefTRIAXone 1,000 MG in SYRINGE 1 EACH IV SCH ×2 (09:16→21:33)
[2018-03-28] MEDS: LACTATED RINGERS 1,000 ML IV SCH (06:50)
[2018-03-28 07:17] VITALS: BP 126/80
[2018-03-28] MEDS: PANTOPRAZOLE 40 MG TABLET PO SCH (09:08)
[2018-03-28] MEDS: cefTRIAXone 1,000 MG in SYRINGE 1 EACH IV SCH (09:09)
== END 2018-03-28 12:30 | disposition home or self-care (01) ==
LOC: N.ED 16:25 → INTOOBSV 19:50 → N.EDINP 19:50 → N.5E 20:08
PROVIDERS: ADMIT Family Medicine; ATTEND Family Medicine

== ENCOUNTER 2019-11-29 01:07 | Observation (INO) ==
[2019-11-29] MEDS ORDERED: ASPIRIN 325 MG TABLET PO STA (01:12)
[2019-11-29] MEDS ORDERED: NITROGLYCERIN SL 0.4 MG TABLET SL ONE (01:20)
[2019-11-29] MEDS ORDERED: ASPIRIN EC 325 MG TABLET PO STA (01:22)
[2019-11-29] MEDS ORDERED: NITROGLYCERIN SL 0.4 MG TABLET SL STA (01:22)
[2019-11-29 02:06] LABS: Alanine Aminotransferase 19 U/L (13-56); Albumin 3.9 G/DL (3.4-5.0); Alkaline Phosphatase 96 U/L (45-117); Aspartate Amino Transferase 34 U/L (0-37); Bilirubin,Total < 0.39 MG/DL (0.2-1.0); Blood Urea Nitrogen 24 MG/DL (7-18); Calcium 9.3 MG/DL (8.5-10.1); Estimated Glom Filtration Rate 76 ML/MIN; Glucose 100 MG/DL (74-106); Osmolality,Calculated 273.1 MOS/KG (273-304)
[2019-11-29 02:29] LABS: Basophils % 0.4 % (0.0-0.8); Eosinophils # 0.1 10*3/uL (0.0-0.87); Eosinophils % 1.7 % (0.00-10.9); Hematocrit 33.5 VOL% (35.7-47.0); Hemoglobin 10.9 GM/DL (12.0-16.0); Immature Granulocytes % 0.4 %; Immature Granulocytes Absolute 0.03 #; Lymphocytes # 1.8 10*3/uL (1.4-4.0); Lymphocytes % 25.7 % (21.3-54.2); Mean Corpuscular HGB Conc 32.5 GM/DL (32-36); Mean Corpuscular Volume 90.8 FL (87-102); Mean Platelet Volume 9.9 FL (9.6-12.0); Monocytes % 7.5 % (1.7-12.7); Neutrophils % 64.3 % (38.7-73.9); Platelet Count 136 T/CUMM (130-400); Red Blood Count 3.69 MC/CUMM (3.8-5.5); Red Cell Distribution Width 12.6 % (9.3-17.3); White Blood Count 7.1 T/CUMM (4-12)
[2019-11-29 02:36] LABS: PT Patient Result 10.6 SECS (9.8-11.9)
[2019-11-29] MEDS ORDERED: ASPIRIN CHEW 81 MG TABLET PO SCH (04:30)
[2019-11-29] MEDS ORDERED: diphenhydrAMINE CAP 25 MG CAPSULE PO PRN (05:34)
[2019-11-29] MEDS ORDERED: ASPIRIN ACETAMINOPHEN CAFFEINE PO PRN (05:34)
[2019-11-29] MEDS: CETIRIZINE 10 MG TABLET PO SCH ×2 (08:50→20:44)
[2019-11-29] MEDS: PARoxetine 20 MG TABLET PO SCH (08:50)
[2019-11-29] MEDS: PANTOPRAZOLE 40 MG VIAL IV SCH (08:50)
[2019-11-29] MEDS: lisinopriL 20 MG TABLET PO SCH (08:50)
[2019-11-29] MEDS: ASPIRIN CHEW 81 MG TABLET PO SCH (08:50)
[2019-11-29] MEDS: DICYCLOMINE 10 MG CAPSULE PO SCH ×3 (08:50→20:44)
[2019-11-29] MEDS ORDERED: CYANOCOBALAMIN 1000 MCG/1 ML VIAL IM SCH (09:00)
[2019-11-29] MEDS ORDERED: MEPERIDINE 50 MG/1 ML VIAL IM ONE (10:18)
[2019-11-29] MEDS: PROMETHAZINE 25 MG TABLET PO PRN (11:18)
[2019-11-29] MEDS: MELATONIN 3 MG TABLET PO SCH (20:44)
[2019-11-30] MEDS: ASPIRIN CHEW 81 MG TABLET PO SCH (09:11)
[2019-11-30] MEDS: DICYCLOMINE 10 MG CAPSULE PO SCH ×3 (09:11→20:13)
[2019-11-30] MEDS: CETIRIZINE 10 MG TABLET PO SCH ×2 (09:11→20:13)
[2019-11-30] MEDS: lisinopriL 20 MG TABLET PO SCH (09:11)
[2019-11-30] MEDS: PARoxetine 20 MG TABLET PO SCH (09:11)
[2019-11-30] MEDS: PANTOPRAZOLE 40 MG VIAL IV SCH (09:12)
[2019-11-30] MEDS ORDERED: MEPERIDINE 50 MG PO PRN (12:23)
[2019-11-30 15:41] LABS: Amorphous Crystals,Urine Occasional /HPF (Few); Apearance,Urine Slightly Hazy (Clear); Bilirubin,Urine Negative (Negative); Blood, Urine Small mg/dL (Negative); Glucose,Urine (UA) Negative (Negative); Ketones,Urine Negative (Negative); Mucus,Urine Occasional /LPF (Occasional); Nitrite,Urine Negative (Negative); Protein,Urine Negative; RBC,Urine 16 /HPF (0-4); Squamous Epithelial Cell,Urine Occasional /HPF (0-10); Urine Color Yellow (Yellow); Urine Specific Gravity 1.011 (1.001-1.035); Urine Urobilinogen < 2.0 EU/DL (0.2-1.0); WBC,Urine 178 /HPF (0-6)
[2019-11-30] MEDS: MELATONIN 3 MG TABLET PO SCH (20:12)
[2019-12-01 08:41] LABS: Basophils % 0.7 % (0.0-0.8); Eosinophils # 0.1 10*3/uL (0.0-0.87); Eosinophils % 2.2 % (0.00-10.9); Hematocrit 38.4 VOL% (35.7-47.0); Hemoglobin 12.2 GM/DL (12.0-16.0); Immature Granulocytes % 0.2 %; Immature Granulocytes Absolute 0.01 #; Lymphocytes # 1.3 10*3/uL (1.4-4.0); Mean Corpuscular HGB Conc 31.8 GM/DL (32-36); Mean Corpuscular Volume 92.8 FL (87-102); Mean Platelet Volume 10.5 FL (9.6-12.0); Monocytes % 7.9 % (1.7-12.7); Platelet Count 142 T/CUMM (130-400); Red Blood Count 4.14 MC/CUMM (3.8-5.5); Red Cell Distribution Width 12.7 % (9.3-17.3); White Blood Count 4.2 T/CUMM (4-12)
[2019-12-01 09:13] LABS: Albumin 3.3 G/DL (3.4-5.0); Bilirubin,Total 0.6 MG/DL (0.2-1.0); Calcium 9.1 MG/DL (8.5-10.1); Thyroid Stimulating Hormone 7.24 uIU/ml (0.358-3.74)
[2019-12-01] MEDS: DICYCLOMINE 10 MG CAPSULE PO SCH ×3 (09:23→20:49)
[2019-12-01] MEDS: PANTOPRAZOLE 40 MG TABLET PO SCH (09:23)
[2019-12-01] MEDS: lisinopriL 20 MG TABLET PO SCH (09:23)
[2019-12-01] MEDS: PARoxetine 20 MG TABLET PO SCH (09:23)
[2019-12-01] MEDS: CETIRIZINE 10 MG TABLET PO SCH ×2 (09:23→20:49)
[2019-12-01] MEDS: ASPIRIN CHEW 81 MG TABLET PO SCH (09:25)
[2019-12-01 09:54] LABS: Anisocytosis Slight; Macrocytosis Slight; Platelet Estimate Adequate
[2019-12-01 09:56] LABS: Sedimentation Rate-Westergren 15 MM/HR (0-30)
[2019-12-01 16:24] LABS: Cancer Antigen 19-9 14.2 U/ML (0-37)
[2019-12-01] MEDS ORDERED: HYDROmorphone 2 MG/1 ML VIAL IV ONE (20:10)
[2019-12-01] MEDS ORDERED: MEPERIDINE 25 MG/1 ML VIAL IV ONE (20:22)
[2019-12-01] MEDS: MELATONIN 3 MG TABLET PO SCH (20:49)
[2019-12-01] MEDS: PROMETHAZINE 25 MG TABLET PO PRN (20:49)
[2019-12-02 07:05] LABS: Basophils % 1.1 % (0.0-0.8); Eosinophils # 0.2 10*3/uL (0.0-0.87); Eosinophils % 4.5 % (0.00-10.9); Hematocrit 34.8 VOL% (35.7-47.0); Immature Granulocytes % 0.3 %; Immature Granulocytes Absolute 0.01 #; Lymphocytes # 1.9 10*3/uL (1.4-4.0); Lymphocytes % 48.9 % (21.3-54.2); Mean Corpuscular HGB Conc 31.6 GM/DL (32-36); Mean Corpuscular Volume 92.1 FL (87-102); Monocytes % 9.2 % (1.7-12.7); Platelet Count 147 T/CUMM (130-400); Red Blood Count 3.78 MC/CUMM (3.8-5.5); Red Cell Distribution Width 12.8 % (9.3-17.3); White Blood Count 3.8 T/CUMM (4-12)
[2019-12-02 07:22] LABS: Alanine Aminotransferase 99 U/L (13-56); Albumin 3.4 G/DL (3.4-5.0); Alkaline Phosphatase 104 U/L (45-117); Aspartate Amino Transferase 56 U/L (0-37); Blood Urea Nitrogen 15 MG/DL (7-18); Calcium 8.7 MG/DL (8.5-10.1); Estimated Glom Filtration Rate 103 ML/MIN; Glucose 85 MG/DL (74-106); Osmolality,Calculated 276.5 MOS/KG (273-304); Total Protein 6.6 G/DL (6.4-8.3)
[2019-12-02 08:04] LABS: Atypical Lymphocytes Few; Band Neutrophils 3 % (0-10); Eosinophils 7 % (0-10); Hypochromasia 1+; Lymphocytes 52 % (20-55); Microcytosis Slight; Ovalocytes Slight; Segmented Neutrophils 30 % (50-85); Total Cells Counted 100
[2019-12-02 08:05] LABS: Platelet Estimate Adequate
[2019-12-02] MEDS: PANTOPRAZOLE 40 MG TABLET PO SCH (09:32)
[2019-12-02] MEDS: lisinopriL 20 MG TABLET PO SCH (09:32)
[2019-12-02] MEDS: CETIRIZINE 10 MG TABLET PO SCH (09:32)
[2019-12-02] MEDS: DICYCLOMINE 10 MG CAPSULE PO SCH (09:33)
[2019-12-02] MEDS: PARoxetine 20 MG TABLET PO SCH (09:33)
[2019-12-02] MEDS: ASPIRIN CHEW 81 MG TABLET PO SCH (09:33)
[2019-12-02 12:50] VITALS: BP 126/66
== END 2019-12-02 14:07 | disposition home or self-care (01) ==
LOC: N.ED 01:07 → N.EDINP 01:07 → N.TELEN 05:13
PROVIDERS: ADMIT Family Medicine; ATTEND Family Medicine

== ENCOUNTER 2020-08-23 18:50 | Inpatient (IN) ==
[2020-08-23] MEDS ORDERED: cloNIDine 0.1 MG TABLET PO STA (20:35)
[2020-08-23 21:26] LABS: Basophils % 0.1 % (0.0-0.8); Hematocrit 35.8 VOL% (35.7-47.0); Hemoglobin 11.7 GM/DL (12.0-16.0); Immature Granulocytes % 0.4 %; Immature Granulocytes Absolute 0.03 #; Lymphocytes # 0.7 10*3/uL (1.4-4.0); Lymphocytes % 9.7 % (21.3-54.2); Mean Corpuscular HGB Conc 32.7 GM/DL (32-36); Mean Corpuscular Volume 88.8 FL (87-102); Monocytes % 2.5 % (1.7-12.7); Neutrophils % 87.3 % (38.7-73.9); Platelet Count 172 T/CUMM (130-400); Red Blood Count 4.03 MC/CUMM (3.8-5.5); Red Cell Distribution Width 13.2 % (9.3-17.3); White Blood Count 7.7 T/CUMM (4-12)
[2020-08-23 21:39] LABS: PT Patient Result 10.8 SECS (9.8-11.9); Partial Thromboplastin Time 23.4 SECS (23.9-33.8)
[2020-08-23 21:59] LABS: Albumin 3.9 G/DL (3.4-5.0); Bilirubin,Total 0.6 MG/DL (0.2-1.0); Calcium 8.8 MG/DL (8.5-10.1); Osmolality,Calculated 278.5 MOS/KG (273-304); Potassium 3.7 MMOL/L (3.5-5.1); Total Protein 7.4 G/DL (6.4-8.3)
[2020-08-23] MEDS ORDERED: PROMETHAZINE INJ 12.5 MG in SODIUM CHLORIDE 0.9% 50 ML IV STA (22:07)
[2020-08-23] MEDS ORDERED: MEPERIDINE 25 MG/1 ML VIAL IV STA (22:07)
[2020-08-23] MEDS ORDERED: MEPERIDINE 25 MG/1 ML VIAL ONE (22:09)
[2020-08-23] MEDS ORDERED: PROMETHAZINE 25 MG/1 ML VIAL ONE (22:09)
[2020-08-23 22:51] LABS: Bacteria,Urine Occasional /HPF (Few); Bilirubin,Urine Negative (Negative); Blood, Urine Negative (Negative); Glucose,Urine (UA) Negative (Negative); Hyaline Casts,Urine 3 /LPF (0-3); Ketones,Urine Negative (Negative); Mucus,Urine Occasional /LPF (Occasional); Nitrite,Urine Negative (Negative); Protein,Urine Negative; RBC,Urine <1 /HPF (0-4); Squamous Epithelial Cell,Urine Occasional /HPF (0-10); Urine Appearance CLEAR (Clear); Urine Color Yellow (Yellow); Urine Specific Gravity 1.009 (1.001-1.035); Urine Urobilinogen < 2.0 EU/DL (0.2-1.0); WBC,Urine 24 /HPF (0-6)
[2020-08-24] MEDS ORDERED: cefTRIAXone 1,000 MG in SODIUM CHLORIDE 0.9% 100 ML IV STA (00:45)
[2020-08-24] MEDS ORDERED: PROMETHAZINE INJ 25 MG in SODIUM CHLORIDE 0.9% 50 ML IV PRN (02:07)
[2020-08-24] MEDS ORDERED: MEPERIDINE 25 MG/1 ML VIAL IV ONE (02:18)
[2020-08-24] MEDS: DEXTROSE 5% NACL 0.45% 1,000 ML IV SCH ×3 (02:59→21:53)
[2020-08-24] MEDS ORDERED: MEPERIDINE 25 MG/1 ML VIAL IV SCH (06:00)
[2020-08-24] MEDS: DOCUSATE SODIUM 100 MG CAPSULE PO SCH ×2 (09:40→09:44)
[2020-08-24] MEDS: PANTOPRAZOLE 40 MG TABLET PO SCH ×2 (09:41→09:44)
[2020-08-24] MEDS: BISACODYL 5 MG TABLET PO SCH ×2 (09:41→09:44)
[2020-08-24] MEDS: MEPERIDINE 25 MG/1 ML VIAL IV PRN ×2 (10:41→18:44)
[2020-08-24 12:00] LABS: Basophils % 0.2 % (0.0-0.8); Eosinophils # 0.1 10*3/uL (0.0-0.87); Eosinophils % 1.9 % (0.00-10.9); Hematocrit 33.3 VOL% (35.7-47.0); Hemoglobin 10.5 GM/DL (12.0-16.0); Immature Granulocytes % 0.2 %; Immature Granulocytes Absolute 0.01 #; Lymphocytes # 1.3 10*3/uL (1.4-4.0); Lymphocytes % 30.8 % (21.3-54.2); Mean Corpuscular HGB Conc 31.5 GM/DL (32-36); Mean Platelet Volume 10.2 FL (9.6-12.0); Monocytes % 8.2 % (1.7-12.7); Neutrophils % 58.7 % (38.7-73.9); Platelet Count 148 T/CUMM (130-400); Red Blood Count 3.62 MC/CUMM (3.8-5.5); Red Cell Distribution Width 13.3 % (9.3-17.3); White Blood Count 4.1 T/CUMM (4-12)
[2020-08-24 12:21] LABS: Calcium 8.2 MG/DL (8.5-10.1); Osmolality,Calculated 282.1 MOS/KG (273-304); Potassium 3.6 MMOL/L (3.5-5.1)
[2020-08-24 12:35] LABS: Thyroid Stimulating Hormone 3.37 uIU/ml (0.358-3.74)
[2020-08-24 12:48] LABS: Anisocytosis 1+; Platelet Estimate Adequate
[2020-08-24 12:49] LABS: Macrocytosis 1+; Ovalocytes Few
[2020-08-24] MEDS: MELATONIN 3 MG TABLET PO SCH (20:49)
[2020-08-24] MEDS: HYDROmorphone 2 MG/1 ML VIAL IV PRN (20:56)
[2020-08-25] MEDS: MEPERIDINE 25 MG/1 ML VIAL IV PRN ×2 (03:56→15:35)
[2020-08-25] MEDS: THYROID 60 MG TABLET PO SCH (06:00)
[2020-08-25] MEDS: DOCUSATE SODIUM 100 MG CAPSULE PO SCH (08:45)
[2020-08-25] MEDS: ASPIRIN CHEW 81 MG TABLET PO SCH (08:45)
[2020-08-25] MEDS: PANTOPRAZOLE 40 MG TABLET PO SCH (08:45)
[2020-08-25] MEDS: DEXTROSE 5% NACL 0.45% 1,000 ML IV SCH ×3 (08:45→17:57)
[2020-08-25] MEDS: HYDROmorphone 2 MG/1 ML VIAL IV PRN (09:20)
[2020-08-25] MEDS: MELATONIN 3 MG TABLET PO SCH (20:51)
[2020-08-26] MEDS: MEPERIDINE 25 MG/1 ML VIAL IV PRN ×2 (01:29→20:24)
[2020-08-26] MEDS: DEXTROSE 5% NACL 0.45% 1,000 ML IV SCH ×2 (01:29→20:24)
[2020-08-26] MEDS: HYDROmorphone 2 MG/1 ML VIAL IV PRN (03:41)
[2020-08-26] MEDS: THYROID 60 MG TABLET PO SCH (05:59)
[2020-08-26] MEDS: lisinopriL 20 MG TABLET PO SCH (08:54)
[2020-08-26] MEDS: busPIRone 5 MG TABLET PO SCH ×3 (08:55→20:24)
[2020-08-26] MEDS: PANTOPRAZOLE 40 MG TABLET PO SCH (08:55)
[2020-08-26] MEDS: ASPIRIN CHEW 81 MG TABLET PO SCH (08:55)
[2020-08-26] MEDS: FUROSEMIDE 20 MG TABLET PO SCH (08:55)
[2020-08-26] MEDS: DOCUSATE SODIUM 100 MG CAPSULE PO SCH (08:55)
[2020-08-26] MEDS ORDERED: BISACODYL 10 MG SUPP RECTAL PRN (14:32)
[2020-08-26] MEDS: MELATONIN 3 MG TABLET PO SCH (20:19)
[2020-08-27] MEDS: DEXTROSE 5% NACL 0.45% 1,000 ML IV SCH ×3 (02:32→18:37)
[2020-08-27] MEDS: THYROID 60 MG TABLET PO SCH (06:05)
[2020-08-27] MEDS: MEPERIDINE 25 MG/1 ML VIAL IV PRN ×2 (06:09→16:03)
[2020-08-27 08:59] LABS: Basophils % 0.5 % (0.0-0.8); Eosinophils # 0.1 10*3/uL (0.0-0.87); Eosinophils % 2.2 % (0.00-10.9); Hematocrit 33.8 VOL% (35.7-47.0); Hemoglobin 10.9 GM/DL (12.0-16.0); Immature Granulocytes % 0.2 %; Immature Granulocytes Absolute 0.01 #; Lymphocytes # 1.3 10*3/uL (1.4-4.0); Mean Corpuscular HGB Conc 32.2 GM/DL (32-36); Mean Corpuscular Volume 91.1 FL (87-102); Mean Platelet Volume 9.9 FL (9.6-12.0); Monocytes % 6.6 % (1.7-12.7); Neutrophils % 58.5 % (38.7-73.9); Platelet Count 133 T/CUMM (130-400); Red Blood Count 3.71 MC/CUMM (3.8-5.5); Red Cell Distribution Width 13.2 % (9.3-17.3); White Blood Count 4.1 T/CUMM (4-12)
[2020-08-27 09:11] LABS: Blood Urea Nitrogen 8 MG/DL (7-18); Calcium 8.7 MG/DL (8.5-10.1); Carbon Dioxide 28 MMOL/L (21-32); Estimated Glom Filtration Rate 89 ML/MIN; Glucose 95 MG/DL (74-106); Osmolality,Calculated 280.1 MOS/KG (273-304); Potassium 3.6 MMOL/L (3.5-5.1); Sodium 142 MMOL/L (136-145)
[2020-08-27] MEDS: busPIRone 5 MG TABLET PO SCH ×3 (15:06→21:10)
[2020-08-27] MEDS: DOCUSATE SODIUM 100 MG CAPSULE PO SCH (15:06)
[2020-08-27] MEDS: ASPIRIN CHEW 81 MG TABLET PO SCH (15:06)
[2020-08-27] MEDS: FUROSEMIDE 20 MG TABLET PO SCH (15:07)
[2020-08-27] MEDS: lisinopriL 20 MG TABLET PO SCH (15:07)
[2020-08-27] MEDS: PANTOPRAZOLE 40 MG TABLET PO SCH (15:07)
[2020-08-27] MEDS: DICYCLOMINE 10 MG CAPSULE PO SCH (21:10)
[2020-08-27] MEDS: MELATONIN 3 MG TABLET PO SCH (21:10)
[2020-08-28] MEDS: MEPERIDINE 25 MG/1 ML VIAL IV PRN ×2 (00:24→11:37)
[2020-08-28] MEDS: THYROID 60 MG TABLET PO SCH (06:00)
[2020-08-28] MEDS: DEXTROSE 5% NACL 0.45% 1,000 ML IV SCH ×4 (08:28→18:16)
[2020-08-28] MEDS: LACTATED RINGERS 1,000 ML IV SCH (09:37)
[2020-08-28] MEDS ORDERED: propofoL 200 MG/20 ML VIAL IV ONE (10:30)
[2020-08-28] MEDS ORDERED: LIDOCAINE 2% 5 ML VIAL ONE (10:30)
[2020-08-28] MEDS: FUROSEMIDE 20 MG TABLET PO SCH (11:35)
[2020-08-28] MEDS: ASPIRIN CHEW 81 MG TABLET PO SCH (11:36)
[2020-08-28] MEDS: lisinopriL 20 MG TABLET PO SCH (11:36)
[2020-08-28] MEDS: PANTOPRAZOLE 40 MG TABLET PO SCH (11:36)
[2020-08-28] MEDS: DICYCLOMINE 10 MG CAPSULE PO SCH ×4 (11:36→20:54)
[2020-08-28] MEDS: busPIRone 5 MG TABLET PO SCH ×3 (11:37→20:54)
[2020-08-28] MEDS: DOCUSATE SODIUM 100 MG CAPSULE PO SCH (12:53)
[2020-08-28] MEDS: FAMOTIDINE 20 MG TABLET PO SCH (20:54)
[2020-08-28] MEDS: MELATONIN 3 MG TABLET PO SCH (20:54)
[2020-08-29] MEDS: MEPERIDINE 25 MG/1 ML VIAL IV PRN ×3 (01:40→20:41)
[2020-08-29] MEDS: DEXTROSE 5% NACL 0.45% 1,000 ML IV SCH ×3 (01:48→13:30)
[2020-08-29] MEDS: THYROID 60 MG TABLET PO SCH (06:30)
[2020-08-29] MEDS: LACTATED RINGERS 1,000 ML IV SCH (07:25)
[2020-08-29] MEDS: ASPIRIN CHEW 81 MG TABLET PO SCH (10:08)
[2020-08-29] MEDS: DOCUSATE SODIUM 100 MG CAPSULE PO SCH (10:12)
[2020-08-29] MEDS: busPIRone 5 MG TABLET PO SCH ×3 (10:12→20:39)
[2020-08-29] MEDS: DICYCLOMINE 10 MG CAPSULE PO SCH ×4 (10:12→20:40)
[2020-08-29] MEDS: FUROSEMIDE 20 MG TABLET PO SCH (10:13)
[2020-08-29] MEDS: lisinopriL 20 MG TABLET PO SCH (10:15)
[2020-08-29] MEDS: FAMOTIDINE 20 MG TABLET PO SCH ×2 (10:16→20:39)
[2020-08-29] MEDS: PANTOPRAZOLE 40 MG TABLET PO SCH (10:17)
[2020-08-29] MEDS: CETIRIZINE 10 MG TABLET PO SCH (10:23)
[2020-08-29] MEDS: MELATONIN 3 MG TABLET PO SCH (20:38)
[2020-08-30] MEDS: DEXTROSE 5% NACL 0.45% 1,000 ML IV SCH ×2 (03:52→23:22)
[2020-08-30] MEDS: MEPERIDINE 25 MG/1 ML VIAL IV PRN ×3 (05:10→22:59)
[2020-08-30] MEDS: THYROID 60 MG TABLET PO SCH (06:11)
[2020-08-30] MEDS: LACTATED RINGERS 1,000 ML IV SCH (07:25)
[2020-08-30] MEDS: ASPIRIN CHEW 81 MG TABLET PO SCH (09:46)
[2020-08-30] MEDS: DICYCLOMINE 10 MG CAPSULE PO SCH ×4 (09:46→22:54)
[2020-08-30] MEDS: FUROSEMIDE 20 MG TABLET PO SCH (09:47)
[2020-08-30] MEDS: lisinopriL 20 MG TABLET PO SCH (09:47)
[2020-08-30] MEDS: FAMOTIDINE 20 MG TABLET PO SCH ×2 (09:47→22:54)
[2020-08-30] MEDS: busPIRone 5 MG TABLET PO SCH ×3 (09:47→22:54)
[2020-08-30] MEDS: CETIRIZINE 10 MG TABLET PO SCH (09:48)
[2020-08-30] MEDS: PANTOPRAZOLE 40 MG TABLET PO SCH (09:48)
[2020-08-30] MEDS: DOCUSATE SODIUM 100 MG CAPSULE PO SCH (11:23)
[2020-08-30] MEDS: MELATONIN 3 MG TABLET PO SCH (22:54)
[2020-08-31] MEDS: THYROID 60 MG TABLET PO SCH (06:42)
[2020-08-31] MEDS: FAMOTIDINE 20 MG TABLET PO SCH ×2 (08:48→21:19)
[2020-08-31] MEDS: DOCUSATE SODIUM 100 MG CAPSULE PO SCH (08:48)
[2020-08-31] MEDS: lisinopriL 20 MG TABLET PO SCH (08:48)
[2020-08-31] MEDS: PANTOPRAZOLE 40 MG TABLET PO SCH (08:48)
[2020-08-31] MEDS: ASPIRIN CHEW 81 MG TABLET PO SCH (08:48)
[2020-08-31] MEDS: busPIRone 5 MG TABLET PO SCH ×3 (08:49→21:19)
[2020-08-31] MEDS: CETIRIZINE 10 MG TABLET PO SCH (08:49)
[2020-08-31] MEDS: FUROSEMIDE 20 MG TABLET PO SCH (08:49)
[2020-08-31] MEDS: DICYCLOMINE 10 MG CAPSULE PO SCH ×4 (08:49→21:19)
[2020-08-31] MEDS: methylPREDNISolone SOD SUC 40 MG/1 ML VIAL IV SCH ×2 (08:54→16:57)
[2020-08-31] MEDS: LACTATED RINGERS 1,000 ML IV SCH (13:19)
[2020-08-31] MEDS: DEXTROSE 5% NACL 0.45% 1,000 ML IV SCH ×2 (17:46→18:11)
[2020-08-31] MEDS: MELATONIN 3 MG TABLET PO SCH (21:18)
[2020-08-31] MEDS ORDERED: ACETAMINOPHEN 325 MG TABLET PO PRN (21:32)
[2020-09-01] MEDS: methylPREDNISolone SOD SUC 40 MG/1 ML VIAL IV SCH ×3 (00:24→16:08)
[2020-09-01] MEDS: DEXTROSE 5% NACL 0.45% 1,000 ML IV SCH (04:50)
[2020-09-01] MEDS: LACTATED RINGERS 1,000 ML IV SCH (06:10)
[2020-09-01] MEDS: THYROID 60 MG TABLET PO SCH (06:25)
[2020-09-01] MEDS: FAMOTIDINE 20 MG TABLET PO SCH ×3 (08:12→20:47)
[2020-09-01] MEDS: ASPIRIN CHEW 81 MG TABLET PO SCH (08:12)
[2020-09-01] MEDS: DOCUSATE SODIUM 100 MG CAPSULE PO SCH ×3 (08:12→13:37)
[2020-09-01] MEDS: lisinopriL 20 MG TABLET PO SCH (08:12)
[2020-09-01] MEDS: DICYCLOMINE 10 MG CAPSULE PO SCH ×4 (08:12→20:47)
[2020-09-01] MEDS: PANTOPRAZOLE 40 MG TABLET PO SCH (08:12)
[2020-09-01] MEDS: busPIRone 5 MG TABLET PO SCH ×3 (08:13→20:47)
[2020-09-01] MEDS: CETIRIZINE 10 MG TABLET PO SCH (08:13)
[2020-09-01] MEDS: FUROSEMIDE 20 MG TABLET PO SCH (08:14)
[2020-09-01] MEDS: MELATONIN 3 MG TABLET PO SCH (20:47)
[2020-09-02] MEDS: methylPREDNISolone SOD SUC 40 MG/1 ML VIAL IV SCH ×3 (00:44→15:19)
[2020-09-02] MEDS: DEXTROSE 5% NACL 0.45% 1,000 ML IV SCH (00:46)
[2020-09-02] MEDS: THYROID 60 MG TABLET PO SCH (06:26)
[2020-09-02] MEDS: LACTATED RINGERS 1,000 ML IV SCH (09:06)
[2020-09-02] MEDS: FAMOTIDINE 20 MG TABLET PO SCH (10:58)
[2020-09-02] MEDS: DOCUSATE SODIUM 100 MG CAPSULE PO SCH (10:58)
[2020-09-02] MEDS: FUROSEMIDE 20 MG TABLET PO SCH (10:59)
[2020-09-02] MEDS: CETIRIZINE 10 MG TABLET PO SCH (10:59)
[2020-09-02] MEDS: PANTOPRAZOLE 40 MG TABLET PO SCH (10:59)
[2020-09-02] MEDS: DICYCLOMINE 10 MG CAPSULE PO SCH ×3 (10:59→16:48)
[2020-09-02] MEDS: lisinopriL 20 MG TABLET PO SCH (10:59)
[2020-09-02] MEDS: ASPIRIN CHEW 81 MG TABLET PO SCH (10:59)
[2020-09-02] MEDS: busPIRone 5 MG TABLET PO SCH ×2 (10:59→15:16)
[2020-09-02 11:45] VITALS: BP 122/86
== END 2020-09-02 17:00 | disposition home or self-care (01) | DRG 389 ==
LOC: N.EDINP 18:50 → N.ED 18:50 → N.3E 08-24 01:18
PROVIDERS: ADMIT Family Medicine; ATTEND Family Medicine

== ENCOUNTER 2021-01-05 07:26 | Inpatient (IN) ==
[2021-01-05 08:28] LABS: Basophils % 0.5 % (0.0-0.8); Eosinophils # 0.1 10*3/uL (0.0-0.87); Eosinophils % 2.1 % (0.00-10.9); Hematocrit 39.8 VOL% (35.7-47.0); Hemoglobin 12.7 GM/DL (12.0-16.0); Immature Granulocytes % 0.5 %; Immature Granulocytes Absolute 0.02 #; Lymphocytes # 1.2 10*3/uL (1.4-4.0); Lymphocytes % 27.2 % (21.3-54.2); Mean Corpuscular HGB Conc 31.9 GM/DL (32-36); Mean Corpuscular Volume 86.5 FL (87-102); Mean Platelet Volume 10.6 FL (9.6-12.0); Monocytes % 9.6 % (1.7-12.7); Neutrophils % 60.1 % (38.7-73.9); Platelet Count 146 T/CUMM (130-400); Red Cell Distribution Width 14.2 % (9.3-17.3); White Blood Count 4.4 T/CUMM (4-12)
[2021-01-05 08:46] LABS: INR 0.9; PT Patient Result 10.6 SECS (10.5-12.0)
[2021-01-05 08:52] LABS: Bilirubin,Total 0.6 MG/DL (0.2-1.0); Calcium 9.1 MG/DL (8.5-10.1); Osmolality,Calculated 278.7 MOS/KG (273-304); Potassium 3.8 MMOL/L (3.5-5.1); Total Protein 7.9 G/DL (6.4-8.2)
[2021-01-05] MEDS ORDERED: PROMETHAZINE 25 MG/1 ML VIAL IM STA (10:12)
[2021-01-05] MEDS ORDERED: fentaNYL 100 MCG/2 ML VIAL IV STA (10:12)
[2021-01-05 10:37] LABS: Bilirubin,Urine Negative (Negative); Blood, Urine Negative (Negative); Glucose,Urine (UA) Negative (Negative); Ketones,Urine Negative (Negative); Nitrite,Urine Negative (Negative); Protein,Urine Negative; RBC,Urine 1 /HPF (0-4); Urine Appearance CLEAR (Clear); Urine Color Straw (Yellow); Urine Specific Gravity 1.006 (1.001-1.035); Urine Urobilinogen < 2.0 EU/DL (0.2-1.0)
[2021-01-05] MEDS ORDERED: ACETAMINOPHEN 325 MG TABLET PO PRN (11:39)
[2021-01-05] MEDS ORDERED: PROMETHAZINE 25 MG/1 ML VIAL IM PRN (11:39)
[2021-01-05] MEDS: SODIUM CHLORIDE 0.9% 1,000 ML IV SCH ×2 (11:54→21:04)
[2021-01-05] MEDS: fentaNYL 100 MCG/2 ML VIAL IV PRN (16:27)
[2021-01-05] MEDS ORDERED: MEPERIDINE 25 MG/1 ML VIAL IV PRN (18:07)
[2021-01-05] MEDS: DOCUSATE SODIUM 100 MG CAPSULE PO SCH (21:04)
[2021-01-06] MEDS: SODIUM CHLORIDE 0.9% 1,000 ML IV SCH ×3 (03:17→21:45)
[2021-01-06] MEDS: MEPERIDINE 50 MG/1 ML VIAL IV PRN (04:01)
[2021-01-06 04:55] LABS: Basophils % 0.4 % (0.0-0.8); Eosinophils # 0.1 10*3/uL (0.0-0.87); Eosinophils % 3.9 % (0.00-10.9); Hematocrit 34.1 VOL% (35.7-47.0); Hemoglobin 10.8 GM/DL (12.0-16.0); Lymphocytes % 36.6 % (21.3-54.2); Mean Corpuscular HGB Conc 31.7 GM/DL (32-36); Mean Corpuscular Volume 88.6 FL (87-102); Mean Platelet Volume 9.9 FL (9.6-12.0); Monocytes % 9.7 % (1.7-12.7); Neutrophils % 49.4 % (38.7-73.9); Platelet Count 135 T/CUMM (130-400); Red Blood Count 3.85 MC/CUMM (3.8-5.5); Red Cell Distribution Width 14.4 % (9.3-17.3); White Blood Count 2.8 T/CUMM (4-12)
[2021-01-06 05:22] LABS: Hypochromasia 1+; Microcytosis 1+; Ovalocytes Few
[2021-01-06 05:23] LABS: Platelet Estimate Adequate
[2021-01-06] MEDS: DOCUSATE SODIUM 100 MG CAPSULE PO SCH ×2 (08:14→21:46)
[2021-01-06] MEDS: PANTOPRAZOLE 40 MG TABLET PO SCH (08:14)
[2021-01-06] MEDS ORDERED: ZALEPLON 5 MG CAPSULE PO PRN (14:30)
[2021-01-06] MEDS: ZALEPLON 5 MG CAPSULE PO SCH (21:06)
[2021-01-06] MEDS: METHENAMINE HIPPURATE 1 GM TABLET PO SCH (21:06)
[2021-01-07 07:20] LABS: Basophils % 0.5 % (0.0-0.8); Eosinophils # 0.2 10*3/uL (0.0-0.87); Hematocrit 35.5 VOL% (35.7-47.0); Immature Granulocytes % 0.3 %; Immature Granulocytes Absolute 0.01 #; Lymphocytes # 1.5 10*3/uL (1.4-4.0); Lymphocytes % 40.6 % (21.3-54.2); Mean Corpuscular Volume 89.2 FL (87-102); Mean Platelet Volume 9.9 FL (9.6-12.0); Monocytes % 9.2 % (1.7-12.7); Neutrophils % 45.4 % (38.7-73.9); Platelet Count 148 T/CUMM (130-400); Red Blood Count 3.98 MC/CUMM (3.8-5.5); Red Cell Distribution Width 14.2 % (9.3-17.3); White Blood Count 3.8 T/CUMM (4-12)
[2021-01-07] MEDS: fentaNYL 100 MCG/2 ML VIAL IV PRN (07:23)
[2021-01-07 07:46] LABS: Eosinophils 5 % (0-10); Hypochromasia 1+; Lymphocytes 35 % (20-55); Microcytosis 1+; Ovalocytes Slight; Platelet Estimate Adequate; Segmented Neutrophils 50 % (50-85); Total Cells Counted 100
[2021-01-07 07:51] LABS: Bilirubin,Total 0.4 MG/DL (0.2-1.0); Calcium 8.4 MG/DL (8.5-10.1); Osmolality,Calculated 284.8 MOS/KG (273-304); Potassium 4.3 MMOL/L (3.5-5.1); Thyroid Stimulating Hormone 12.2 uIU/ml (0.358-3.74); Total Protein 6.1 G/DL (6.4-8.2)
[2021-01-07] MEDS: THYROID 60 MG TABLET PO SCH (09:51)
[2021-01-07] MEDS: PANTOPRAZOLE 40 MG TABLET PO SCH (09:51)
[2021-01-07] MEDS: SODIUM CHLORIDE 0.9% 1,000 ML IV SCH (09:51)
[2021-01-07] MEDS: DOCUSATE SODIUM 100 MG CAPSULE PO SCH ×2 (09:51→20:29)
[2021-01-07] MEDS: METHENAMINE HIPPURATE 1 GM TABLET PO SCH ×2 (09:51→20:28)
[2021-01-07] MEDS: lisinopriL 20 MG TABLET PO SCH (09:51)
[2021-01-07] MEDS: MEPERIDINE 50 MG/1 ML VIAL IV PRN ×2 (10:46→20:21)
[2021-01-07] MEDS: predniSONE 20 MG TABLET PO SCH (16:21)
[2021-01-07] MEDS: ZALEPLON 5 MG CAPSULE PO SCH (21:25)
[2021-01-08] MEDS: SODIUM CHLORIDE 0.9% 1,000 ML IV SCH ×2 (00:01→11:40)
[2021-01-08] MEDS: MEPERIDINE 50 MG/1 ML VIAL IV PRN ×2 (05:29→23:45)
[2021-01-08] MEDS: METHENAMINE HIPPURATE 1 GM TABLET PO SCH ×2 (08:24→21:39)
[2021-01-08] MEDS: lisinopriL 20 MG TABLET PO SCH (08:24)
[2021-01-08] MEDS: THYROID 60 MG TABLET PO SCH (08:24)
[2021-01-08] MEDS: PANTOPRAZOLE 40 MG TABLET PO SCH (08:25)
[2021-01-08] MEDS: predniSONE 20 MG TABLET PO SCH (08:25)
[2021-01-08] MEDS: DOCUSATE SODIUM 100 MG CAPSULE PO SCH ×2 (08:26→21:39)
[2021-01-08] MEDS: ZALEPLON 5 MG CAPSULE PO SCH (21:39)
[2021-01-09] MEDS: MEPERIDINE 50 MG/1 ML VIAL IV PRN ×2 (06:45→18:41)
[2021-01-09] MEDS: METHENAMINE HIPPURATE 1 GM TABLET PO SCH ×2 (08:18→20:39)
[2021-01-09] MEDS: predniSONE 20 MG TABLET PO SCH (08:18)
[2021-01-09] MEDS: PANTOPRAZOLE 40 MG TABLET PO SCH (08:18)
[2021-01-09] MEDS: DOCUSATE SODIUM 100 MG CAPSULE PO SCH ×2 (08:18→20:24)
[2021-01-09] MEDS: lisinopriL 20 MG TABLET PO SCH (08:18)
[2021-01-09] MEDS: THYROID 60 MG TABLET PO SCH (08:19)
[2021-01-09] MEDS ORDERED: MEPERIDINE 50 MG/1 ML VIAL IV ONE (11:13)
[2021-01-09] MEDS: SODIUM CHLORIDE 0.9% 1,000 ML IV SCH ×2 (13:25→13:27)
[2021-01-09] MEDS: ZALEPLON 5 MG CAPSULE PO SCH (20:39)
[2021-01-10] MEDS: MEPERIDINE 50 MG/1 ML VIAL IV PRN (01:25)
[2021-01-10] MEDS: SODIUM CHLORIDE 0.9% 1,000 ML IV SCH (03:40)
[2021-01-10 06:04] LABS: Basophils % 0.5 % (0.0-0.8); Eosinophils # 0.1 10*3/uL (0.0-0.87); Eosinophils % 0.9 % (0.00-10.9); Hematocrit 32.7 VOL% (35.7-47.0); Hemoglobin 10.5 GM/DL (12.0-16.0); Immature Granulocytes % 0.8 %; Immature Granulocytes Absolute 0.05 #; Lymphocytes # 2.3 10*3/uL (1.4-4.0); Mean Corpuscular HGB Conc 32.1 GM/DL (32-36); Mean Corpuscular Volume 87.4 FL (87-102); Mean Platelet Volume 10.1 FL (9.6-12.0); Monocytes % 6.5 % (1.7-12.7); Neutrophils % 56.3 % (38.7-73.9); Platelet Count 165 T/CUMM (130-400); Red Blood Count 3.74 MC/CUMM (3.8-5.5); Red Cell Distribution Width 14.6 % (9.3-17.3); White Blood Count 6.4 T/CUMM (4-12)
[2021-01-10 06:27] LABS: Albumin 3.2 G/DL (3.4-5.0); Bilirubin,Total 0.6 MG/DL (0.2-1.0); Calcium 8.7 MG/DL (8.5-10.1); Osmolality,Calculated 282.1 MOS/KG (273-304); Potassium 3.5 MMOL/L (3.5-5.1); Total Protein 6.3 G/DL (6.4-8.2)
[2021-01-10] MEDS: lisinopriL 20 MG TABLET PO SCH (08:29)
[2021-01-10] MEDS: METHENAMINE HIPPURATE 1 GM TABLET PO SCH (08:29)
[2021-01-10] MEDS: predniSONE 20 MG TABLET PO SCH (08:29)
[2021-01-10] MEDS: PANTOPRAZOLE 40 MG TABLET PO SCH (08:29)
[2021-01-10] MEDS: THYROID 60 MG TABLET PO SCH (08:30)
[2021-01-10] MEDS: DOCUSATE SODIUM 100 MG CAPSULE PO SCH (08:30)
[2021-01-10] MEDS ORDERED: FUROSEMIDE 20 MG TABLET PO SCH (09:00)
[2021-01-10] MEDS ORDERED: ASPIRIN CHEW 81 MG TABLET PO SCH (09:00)
[2021-01-10 12:14] VITALS: BP 136/80
== END 2021-01-10 23:59 | disposition home or self-care (01) | DRG 840 ==
LOC: N.EDINP 07:26 → N.ED 07:26 → N.2E 14:04 → N.5E 18:35
PROVIDERS: ADMIT Family Medicine; ATTEND Family Medicine

== ENCOUNTER 2021-12-23 09:56 | Inpatient (IN) ==
[2021-12-23] MEDS ORDERED: SODIUM CHLORIDE 0.9% 1,000 ML IV STA (14:21)
[2021-12-23] MEDS ORDERED: fentaNYL 100 MCG/2 ML VIAL IV STA (14:22)
[2021-12-23] MEDS ORDERED: PROMETHAZINE 25 MG/1 ML VIAL IV STA (14:22)
[2021-12-23 15:11] LABS: Basophils % 0.1 % (0.0-0.8); Eosinophils % 0.1 % (0.00-10.9); Hematocrit 31.3 VOL% (35.7-47.0); Hemoglobin 10.2 GM/DL (12.0-16.0); Immature Granulocytes % 0.6 %; Immature Granulocytes Absolute 0.04 #; Lymphocytes # 0.8 10*3/uL (1.4-4.0); Lymphocytes % 11.8 % (21.3-54.2); Mean Corpuscular HGB Conc 32.6 GM/DL (32-36); Mean Corpuscular Volume 83.9 FL (87-102); Mean Platelet Volume 10.2 FL (9.6-12.0); Monocytes # 0.5 10*3/uL (0.11-0.8); Monocytes % 7.4 % (1.7-12.7); Platelet Count 120 T/CUMM (130-400); Red Blood Count 3.73 MC/CUMM (3.8-5.5); Red Cell Distribution Width 14.4 % (9.3-17.3); White Blood Count 6.8 T/CUMM (4-12)
[2021-12-23] MEDS ORDERED: MEPERIDINE 25 MG/1 ML VIAL IV STA (15:13)
[2021-12-23] MEDS ORDERED: diphenhydrAMINE 50 MG/1 ML VIAL IV STA (15:14)
[2021-12-23 15:17] LABS: Albumin 3.1 G/DL (3.4-5.0); Bilirubin,Total 1.2 MG/DL (0.20-1.00); Calcium 8.9 MG/DL (8.5-10.1); Osmolality,Calculated 266.2 MOS/KG (273-304); Potassium 3.1 MMOL/L (3.5-5.1); Total Protein 7.3 G/DL (6.4-8.2)
[2021-12-23 15:57] LABS: Bilirubin,Urine Negative (Negative); Blood, Urine Moderate mg/dL (Negative); Glucose,Urine (UA) Negative (Negative); Ketones,Urine Negative (Negative); Nitrite,Urine Negative (Negative); Protein,Urine 30 mg/dL (Negative); Urine Appearance Clear (Clear); Urine Color Yellow (Yellow); Urine Urobilinogen 0.2 eU/dL (<2.0); Urine pH 6.5 (4.5-8.0)
[2021-12-23 16:06] LABS: Bacteria,Urine Occasional /HPF (Few); RBC,Urine 2 /HPF (0-4); Squamous Epithelial Cell,Urine Occasional /HPF (0-10)
[2021-12-23] MEDS ORDERED: cefTRIAXone 1,000 MG in SODIUM CHLORIDE 0.9% 100 ML IV STA (16:17)
[2021-12-23] MEDS ORDERED: POTASSIUM CHLORIDE 20 MEQ TABLET PO STA (17:28)
[2021-12-23] MEDS ORDERED: PROMETHAZINE 25 MG/1 ML VIAL IM PRN (21:14)
[2021-12-23] MEDS: MEPERIDINE 25 MG/1 ML VIAL IV PRN (21:18)
[2021-12-23] MEDS: DOCUSATE SODIUM 100 MG CAPSULE PO SCH (21:25)
[2021-12-23] MEDS: SODIUM CHLORIDE 0.9% 1,000 ML IV SCH (21:26)
[2021-12-23] MEDS: diphenhydrAMINE 50 MG/1 ML VIAL IV SCH ×2 (21:26→23:35)
[2021-12-23] MEDS: methylPREDNISolone SOD SUC 125 MG/2 ML VIAL IV SCH (22:18)
[2021-12-24] MEDS: SODIUM CHLORIDE 0.9% 1,000 ML IV SCH ×3 (04:45→22:54)
[2021-12-24] MEDS: methylPREDNISolone SOD SUC 125 MG/2 ML VIAL IV SCH ×3 (05:32→22:55)
[2021-12-24] MEDS: diphenhydrAMINE 50 MG/1 ML VIAL IV SCH ×3 (05:34→17:53)
[2021-12-24] MEDS: MEPERIDINE 25 MG/1 ML VIAL IV PRN ×3 (06:07→18:14)
[2021-12-24] MEDS: cefTRIAXone 1,000 MG in SODIUM CHLORIDE 0.9% 100 ML IV SCH (08:34)
[2021-12-24] MEDS: PANTOPRAZOLE 40 MG TABLET PO SCH (09:50)
[2021-12-24] MEDS: DOCUSATE SODIUM 100 MG CAPSULE PO SCH ×2 (09:51→20:17)
[2021-12-24 14:54] LABS: Hematocrit 32.2 VOL% (35.7-47.0); Hemoglobin 10.3 GM/DL (12.0-16.0); Immature Granulocytes % 0.7 %; Immature Granulocytes Absolute 0.03 #; Lymphocytes # 0.4 10*3/uL (1.4-4.0); Lymphocytes % 8.6 % (21.3-54.2); Mean Platelet Volume 10.6 FL (9.6-12.0); Monocytes # 0.1 10*3/uL (0.11-0.8); Monocytes % 1.4 % (1.7-12.7); Neutrophils % 89.3 % (38.7-73.9); Platelet Count 117 T/CUMM (130-400); Red Blood Count 3.79 MC/CUMM (3.8-5.5); Red Cell Distribution Width 14.4 % (9.3-17.3); White Blood Count 4.2 T/CUMM (4-12)
[2021-12-24 15:10] LABS: Calcium 8.6 MG/DL (8.5-10.1); Osmolality,Calculated 287.3 MOS/KG (273-304)
[2021-12-24] MEDS ORDERED: DOCUSATE SODIUM 100 MG CAPSULE PO PRN (17:01)
[2021-12-24] MEDS ORDERED: PROMETHAZINE 25 MG TABLET PO PRN (17:01)
[2021-12-24] MEDS ORDERED: hydrALAZINE 20 MG/1 ML VIAL IV PRN (17:01)
[2021-12-24] MEDS ORDERED: MAGNESIUM SULF RIDER 4 GM/100 ML PREMIX IV PRN (17:02)
[2021-12-24] MEDS ORDERED: POTASSIUM CHLORIDE RIDER 10 MEQ/100 ML PREMIX IV PRN (17:02)
[2021-12-24] MEDS ORDERED: POTASSIUM CHLORIDE 20 MEQ TABLET PO PRN (17:02)
[2021-12-24] MEDS ORDERED: MAGNESIUM SULF RIDER 2 GM/50 ML PREMIX IV PRN (17:02)
[2021-12-24] MEDS ORDERED: GLUCAGON 1 MG VIAL IM PRN (17:04)
[2021-12-24] MEDS ORDERED: DEXTROSE 10% 250 ML BAG IV PRN (17:08)
[2021-12-24] MEDS ORDERED: ZALEPLON 5 MG CAPSULE PO PRN (17:09)
[2021-12-24] MEDS ORDERED: traMADol 50 MG TABLET PO PRN (17:39)
[2021-12-24] MEDS ORDERED: PROMETHAZINE 25 MG/1 ML VIAL IV PRN (18:03)
[2021-12-24] MEDS ORDERED: diphenhydrAMINE 50 MG/1 ML VIAL IV PRN (18:06)
[2021-12-24] MEDS ORDERED: PROMETHAZINE INJ 12.5 MG in SODIUM CHLORIDE 0.9% 50 ML IV PRN (18:09)
[2021-12-24] MEDS: METHENAMINE HIPPURATE 1 GM TABLET PO SCH (22:53)
[2021-12-24] MEDS: INSULIN LISPRO 100 UNIT/ML SUBCUT SCH (22:53)
[2021-12-25] MEDS: MEPERIDINE 25 MG/1 ML VIAL IV PRN ×3 (01:19→16:55)
[2021-12-25 05:26] LABS: Hemoglobin 9.7 GM/DL (12.0-16.0); Immature Granulocytes % 0.5 %; Immature Granulocytes Absolute 0.04 #; Lymphocytes # 0.7 10*3/uL (1.4-4.0); Lymphocytes % 7.7 % (21.3-54.2); Mean Corpuscular HGB Conc 32.3 GM/DL (32-36); Mean Platelet Volume 10.9 FL (9.6-12.0); Monocytes # 0.3 10*3/uL (0.11-0.8); Monocytes % 3.7 % (1.7-12.7); Neutrophils % 88.1 % (38.7-73.9); Platelet Count 123 T/CUMM (130-400); Red Blood Count 3.53 MC/CUMM (3.8-5.5); Red Cell Distribution Width 14.5 % (9.3-17.3); White Blood Count 8.7 T/CUMM (4-12)
[2021-12-25] MEDS: SODIUM CHLORIDE 0.9% 1,000 ML IV SCH ×3 (05:27→22:23)
[2021-12-25] MEDS: methylPREDNISolone SOD SUC 125 MG/2 ML VIAL IV SCH ×3 (05:31→21:01)
[2021-12-25 05:32] LABS: Calcium 8.9 MG/DL (8.5-10.1); Osmolality,Calculated 281.4 MOS/KG (273-304)
[2021-12-25 05:39] LABS: Anisocytosis 1+; Platelet Estimate Adequate
[2021-12-25 05:40] LABS: Burr Cells Few
[2021-12-25] MEDS: THYROID 60 MG TABLET PO SCH (06:01)
[2021-12-25] MEDS: INSULIN LISPRO 100 UNIT/ML SUBCUT SCH ×4 (08:19→21:08)
[2021-12-25] MEDS ORDERED: PANTOPRAZOLE 40 MG TABLET PO SCH (09:00)
[2021-12-25] MEDS: cefTRIAXone 1,000 MG in SODIUM CHLORIDE 0.9% 100 ML IV SCH (09:24)
[2021-12-25] MEDS: DOCUSATE SODIUM 100 MG CAPSULE PO SCH ×2 (10:19→21:01)
[2021-12-25] MEDS: lisinopriL 20 MG TABLET PO SCH (10:19)
[2021-12-25] MEDS: PANTOPRAZOLE 40 MG TABLET PO SCH (10:19)
[2021-12-25] MEDS: METHENAMINE HIPPURATE 1 GM TABLET PO SCH ×2 (10:25→21:08)
[2021-12-25] MEDS ORDERED: POTASSIUM CHLORIDE 20 MEQ TABLET PO ONE (18:51)
[2021-12-25] MEDS: POTASSIUM CHLORIDE 20 MEQ TABLET PO SCH (21:01)
[2021-12-26] MEDS: MEPERIDINE 25 MG/1 ML VIAL IV PRN (02:41)
[2021-12-26 04:47] LABS: Basophils % 0.1 % (0.0-0.8); Hematocrit 28.4 VOL% (35.7-47.0); Hemoglobin 8.8 GM/DL (12.0-16.0); Immature Granulocytes % 0.8 %; Immature Granulocytes Absolute 0.07 #; Lymphocytes # 1.1 10*3/uL (1.4-4.0); Lymphocytes % 11.3 % (21.3-54.2); Mean Corpuscular Volume 86.6 FL (87-102); Mean Platelet Volume 11.4 FL (9.6-12.0); Monocytes # 0.6 10*3/uL (0.11-0.8); Neutrophils % 81.8 % (38.7-73.9); Platelet Count 120 T/CUMM (130-400); Red Blood Count 3.28 MC/CUMM (3.8-5.5); Red Cell Distribution Width 14.6 % (9.3-17.3); White Blood Count 9.3 T/CUMM (4-12)
[2021-12-26 05:12] LABS: Alanine Aminotransferase 12 U/L (13-56); Albumin 2.5 G/DL (3.4-5.0); Alkaline Phosphatase 55 U/L (45-117); Aspartate Amino Transferase 15 U/L (0-37); Bilirubin,Total < 0.39 MG/DL (0.20-1.00); Blood Urea Nitrogen 15 MG/DL (7-18); Calcium 8.3 MG/DL (8.5-10.1); Carbon Dioxide 22 MMOL/L (21-32); Chloride 114 MMOL/L (98-107); Glucose 91 MG/DL (74-106); Potassium 3.3 MMOL/L (3.5-5.1); Sodium 143 MMOL/L (136-145); Total Protein 5.4 G/DL (6.4-8.2)
[2021-12-26] MEDS: methylPREDNISolone SOD SUC 125 MG/2 ML VIAL IV SCH ×2 (05:18→15:05)
[2021-12-26 05:27] LABS: Platelet Estimate Adequate
[2021-12-26] MEDS: SODIUM CHLORIDE 0.9% 1,000 ML IV SCH ×3 (06:24→15:54)
[2021-12-26] MEDS: THYROID 60 MG TABLET PO SCH (06:53)
[2021-12-26] MEDS: cefTRIAXone 1,000 MG in SODIUM CHLORIDE 0.9% 100 ML IV SCH (08:46)
[2021-12-26] MEDS: DOCUSATE SODIUM 100 MG CAPSULE PO SCH ×2 (08:46→21:25)
[2021-12-26] MEDS: POTASSIUM CHLORIDE 20 MEQ TABLET PO SCH ×2 (08:46→21:25)
[2021-12-26] MEDS: lisinopriL 20 MG TABLET PO SCH (08:46)
[2021-12-26] MEDS: METHENAMINE HIPPURATE 1 GM TABLET PO SCH ×2 (08:46→21:25)
[2021-12-26] MEDS: PANTOPRAZOLE 40 MG TABLET PO SCH (08:46)
[2021-12-26] MEDS: INSULIN LISPRO 100 UNIT/ML SUBCUT SCH ×4 (08:56→21:26)
[2021-12-26] MEDS: methylPREDNISolone SOD SUC 40 MG/1 ML VIAL IV SCH (21:25)
[2021-12-27] MEDS: SODIUM CHLORIDE 0.9% 1,000 ML IV SCH ×3 (00:43→15:16)
[2021-12-27] MEDS: THYROID 60 MG TABLET PO SCH (06:37)
[2021-12-27] MEDS: methylPREDNISolone SOD SUC 40 MG/1 ML VIAL IV SCH ×3 (06:38→21:33)
[2021-12-27] MEDS: METHENAMINE HIPPURATE 1 GM TABLET PO SCH ×2 (09:00→21:33)
[2021-12-27] MEDS: POTASSIUM CHLORIDE 20 MEQ TABLET PO SCH ×2 (09:01→21:34)
[2021-12-27] MEDS: lisinopriL 20 MG TABLET PO SCH (09:01)
[2021-12-27] MEDS: PANTOPRAZOLE 40 MG TABLET PO SCH (09:01)
[2021-12-27] MEDS: DOCUSATE SODIUM 100 MG CAPSULE PO SCH ×2 (09:01→21:33)
[2021-12-27] MEDS: cefTRIAXone 1,000 MG in SODIUM CHLORIDE 0.9% 100 ML IV SCH (09:02)
[2021-12-27] MEDS: INSULIN LISPRO 100 UNIT/ML SUBCUT SCH ×4 (11:11→21:33)
[2021-12-27] MEDS: OXYBUTYNIN XL 15 MG TABLET PO SCH (21:33)
[2021-12-28] MEDS: THYROID 60 MG TABLET PO SCH (05:48)
[2021-12-28] MEDS: SODIUM CHLORIDE 0.9% 1,000 ML IV SCH (05:54)
[2021-12-28] MEDS: methylPREDNISolone SOD SUC 40 MG/1 ML VIAL IV SCH (07:12)
[2021-12-28] MEDS: INSULIN LISPRO 100 UNIT/ML SUBCUT SCH ×4 (09:32→22:25)
[2021-12-28] MEDS: lisinopriL 20 MG TABLET PO SCH (10:07)
[2021-12-28] MEDS: METHENAMINE HIPPURATE 1 GM TABLET PO SCH (10:07)
[2021-12-28] MEDS: DOCUSATE SODIUM 100 MG CAPSULE PO SCH ×2 (10:08→21:39)
[2021-12-28] MEDS: POTASSIUM CHLORIDE 20 MEQ TABLET PO SCH ×2 (10:08→21:39)
[2021-12-28] MEDS: PANTOPRAZOLE 40 MG TABLET PO SCH (10:08)
[2021-12-28] MEDS: predniSONE 20 MG TABLET PO SCH (10:11)
[2021-12-28] MEDS: amLODIPine 2.5 MG TABLET PO SCH (10:11)
[2021-12-28] MEDS: cefTRIAXone 1,000 MG in SODIUM CHLORIDE 0.9% 100 ML IV SCH (15:42)
[2021-12-28] MEDS ORDERED: cefTRIAXone 1,000 MG in SODIUM CHLORIDE 0.9% 100 ML IV SCH (16:00)
[2021-12-28] MEDS: OXYBUTYNIN XL 15 MG TABLET PO SCH (21:39)
[2021-12-29] MEDS ORDERED: amLODIPine 5 MG TABLET PO ONE (05:34)
[2021-12-29] MEDS: THYROID 60 MG TABLET PO SCH (05:44)
[2021-12-29] MEDS: MEPERIDINE 25 MG/1 ML VIAL IV PRN (05:46)
[2021-12-29] MEDS: METHENAMINE HIPPURATE 1 GM TABLET PO SCH ×2 (06:00→09:42)
[2021-12-29] MEDS: SODIUM CHLORIDE 0.9% 1,000 ML IV SCH (06:00)
[2021-12-29] MEDS: INSULIN LISPRO 100 UNIT/ML SUBCUT SCH (08:03)
[2021-12-29 08:28] VITALS: BP 154/86
[2021-12-29] MEDS: DOCUSATE SODIUM 100 MG CAPSULE PO SCH (09:27)
[2021-12-29] MEDS: POTASSIUM CHLORIDE 20 MEQ TABLET PO SCH (09:27)
[2021-12-29] MEDS: lisinopriL 20 MG TABLET PO SCH (09:28)
[2021-12-29] MEDS: predniSONE 20 MG TABLET PO SCH (09:29)
[2021-12-29] MEDS: amLODIPine 2.5 MG TABLET PO SCH (09:30)
[2021-12-29] MEDS: PANTOPRAZOLE 40 MG TABLET PO SCH (09:45)
== END 2021-12-29 12:03 | disposition home health service (06) | DRG 392 ==
LOC: N.EDINP 09:56 → N.ED 09:56 → N.TELEN 21:33
PROVIDERS: ADMIT Family Medicine; ATTEND Family Medicine

== ENCOUNTER 2022-02-14 15:06 | Inpatient (IN) ==
[2022-02-14] MEDS ORDERED: SODIUM CHLORIDE 0.9% 1,000 ML IV STA (16:54)
[2022-02-14] MEDS ORDERED: cefTRIAXone 1,000 MG in SODIUM CHLORIDE 0.9% 100 ML IV STA (17:25)
[2022-02-14 17:34] LABS: Basophils % 0.2 % (0.0-0.8); Hematocrit 32.2 VOL% (35.7-47.0); Hemoglobin 10.1 GM/DL (12.0-16.0); Immature Granulocytes % 0.2 %; Immature Granulocytes Absolute 0.01 #; Lymphocytes # 0.4 10*3/uL (1.4-4.0); Lymphocytes % 7.7 % (21.3-54.2); Mean Corpuscular HGB Conc 31.4 GM/DL (32-36); Monocytes # 0.3 10*3/uL (0.11-0.8); Monocytes % 5.4 % (1.7-12.7); Neutrophils % 86.5 % (38.7-73.9); Platelet Count 149 T/CUMM (130-400); Red Cell Distribution Width 15.7 % (9.3-17.3); White Blood Count 5.7 T/CUMM (4-12)
[2022-02-14 18:00] LABS: Albumin 3.7 G/DL (3.4-5.0); Bilirubin,Total 0.8 MG/DL (0.20-1.00); Calcium 8.9 MG/DL (8.5-10.1); Potassium 3.6 MMOL/L (3.5-5.1); Total Protein 7.2 G/DL (6.4-8.2)
[2022-02-14 18:27] LABS: Bacteria,Urine Moderate /HPF (Few); Hyaline Casts,Urine 2 /LPF (0-3); Mucus,Urine Occasional /LPF (Occasional); RBC,Urine 49 /HPF (0-4)
[2022-02-14 18:30] LABS: Bilirubin,Urine Negative (Negative); Blood, Urine Large mg/dL (Negative); Glucose,Urine (UA) Negative (Negative); Ketones,Urine Negative (Negative); Nitrite,Urine Negative (Negative); Protein,Urine 100 mg/dL (Negative); Urine Appearance Slightly Cloudy (Clear); Urine Color Yellow (Yellow); Urine Specific Gravity 1.025 (1.001-1.035); Urine Urobilinogen 0.2 eU/dL (<2.0)
[2022-02-14] MEDS ORDERED: ZALEPLON 5 MG CAPSULE PO PRN (19:16)
[2022-02-14] MEDS ORDERED: diphenhydrAMINE CAP 25 MG CAPSULE PO PRN (19:17)
[2022-02-14] MEDS ORDERED: AZITHROMYCIN INJ 500 MG in SODIUM CHLORIDE 0.9% 250 ML IV ONE (19:19)
[2022-02-14] MEDS: SODIUM CHLORIDE 0.9% 1,000 ML IV SCH (20:35)
[2022-02-14] MEDS ORDERED: ASCORBIC ACID 500 MG TABLET PO SCH (21:00)
[2022-02-14] MEDS: DOCUSATE SODIUM 100 MG CAPSULE PO SCH (21:40)
[2022-02-14] MEDS: FAMOTIDINE 20 MG TABLET PO SCH (21:40)
[2022-02-15 05:23] LABS: Basophils % 0.3 % (0.0-0.8); Hematocrit 32.2 VOL% (35.7-47.0); Hemoglobin 10.2 GM/DL (12.0-16.0); Immature Granulocytes % 0.5 %; Immature Granulocytes Absolute 0.04 #; Lymphocytes # 0.8 10*3/uL (1.4-4.0); Lymphocytes % 10.5 % (21.3-54.2); Mean Corpuscular HGB Conc 31.7 GM/DL (32-36); Mean Corpuscular Volume 86.6 FL (87-102); Mean Platelet Volume 10.2 FL (9.6-12.0); Monocytes # 0.4 10*3/uL (0.11-0.8); Monocytes % 5.6 % (1.7-12.7); Neutrophils % 83.1 % (38.7-73.9); Platelet Count 101 T/CUMM (130-400); Red Blood Count 3.72 MC/CUMM (3.8-5.5); Red Cell Distribution Width 15.7 % (9.3-17.3); White Blood Count 7.7 T/CUMM (4-12)
[2022-02-15 05:44] LABS: Bilirubin,Total 0.8 MG/DL (0.20-1.00); Calcium 8.4 MG/DL (8.5-10.1); Osmolality,Calculated 273.7 MOS/KG (273-304); Potassium 3.2 MMOL/L (3.5-5.1); Total Protein 6.5 G/DL (6.4-8.2)
[2022-02-15 06:01] LABS: Hypochromia 1+; Microcytosis 1+; Ovalocytes Slight
[2022-02-15] MEDS ORDERED: PROMETHAZINE 25 MG TABLET PO PRN (07:03)
[2022-02-15] MEDS ORDERED: MELATONIN 3 MG TABLET PO SCH (09:00)
[2022-02-15] MEDS: cefTRIAXone 1,000 MG in SODIUM CHLORIDE 0.9% 100 ML IV SCH (09:21)
[2022-02-15] MEDS: MEPERIDINE 50 MG/1 ML VIAL IM SCH ×4 (09:23→17:00)
[2022-02-15] MEDS: FAMOTIDINE 20 MG TABLET PO SCH ×2 (09:23→21:02)
[2022-02-15] MEDS: amLODIPine 2.5 MG TABLET PO SCH (09:23)
[2022-02-15] MEDS: PANTOPRAZOLE 40 MG TABLET PO SCH (09:24)
[2022-02-15] MEDS: THYROID 60 MG TABLET PO SCH (09:24)
[2022-02-15] MEDS: ZINC SULFATE 220 MG CAPSULE PO SCH (09:24)
[2022-02-15] MEDS: DEXAMETHASONE 4 MG/1 ML VIAL IV SCH (09:25)
[2022-02-15] MEDS: DOCUSATE SODIUM 100 MG CAPSULE PO SCH ×2 (09:25→21:00)
[2022-02-15] MEDS: CALCIUM (CARBONATE)/VITAMIN D 600 MG-400 UNIT TABLET PO SCH (09:25)
[2022-02-15] MEDS: ASCORBIC ACID 500 MG TABLET PO SCH ×2 (09:25→21:00)
[2022-02-15] MEDS: CHOLECALCIFEROL 1,000 UNIT TABLET PO SCH (09:28)
[2022-02-15 10:27] LABS: Hepatitis B Core IgM Quant 0.07 Index; Hepatitis B Surface Ag Quant < 0.10 Index; Hepatitis B Surface Ag Result Non-Reactive (NonReactive); Hepatitis C Virus Ab Quant 0.11 Index; Hepatitis C Virus Ab Result Non-Reactive (NonReactive)
[2022-02-15] MEDS: SODIUM CHLORIDE 0.9% 1,000 ML IV SCH (12:20)
[2022-02-15] MEDS ORDERED: AZITHROMYCIN INJ 250 MG in SODIUM CHLORIDE 0.9% 250 ML IV SCH (21:00)
[2022-02-15] MEDS: MELATONIN 3 MG TABLET PO SCH (21:00)
[2022-02-16] MEDS: MEPERIDINE 50 MG/1 ML VIAL IM SCH ×5 (01:14→22:07)
[2022-02-16] MEDS: SODIUM CHLORIDE 0.9% 1,000 ML IV SCH ×2 (04:45→22:07)
[2022-02-16 05:36] LABS: Hematocrit 28.1 VOL% (35.7-47.0); Hemoglobin 8.9 GM/DL (12.0-16.0); Immature Granulocytes % 0.4 %; Immature Granulocytes Absolute 0.03 #; Lymphocytes # 0.8 10*3/uL (1.4-4.0); Lymphocytes % 11.4 % (21.3-54.2); Mean Corpuscular HGB Conc 31.7 GM/DL (32-36); Mean Corpuscular Volume 87.5 FL (87-102); Mean Platelet Volume 10.7 FL (9.6-12.0); Monocytes # 0.4 10*3/uL (0.11-0.8); Monocytes % 5.3 % (1.7-12.7); Neutrophils % 82.9 % (38.7-73.9); Platelet Count 120 T/CUMM (130-400); Red Blood Count 3.21 MC/CUMM (3.8-5.5); Red Cell Distribution Width 15.8 % (9.3-17.3); White Blood Count 7.1 T/CUMM (4-12)
[2022-02-16 06:00] LABS: Albumin 2.8 G/DL (3.4-5.0); Bilirubin,Direct 0.14 MG/DL (0.0-0.20); Bilirubin,Indirect 0.3 MG/DL (0.0-1.0); Bilirubin,Total 0.4 MG/DL (0.20-1.00)
[2022-02-16] MEDS: CALCIUM (CARBONATE)/VITAMIN D 600 MG-400 UNIT TABLET PO SCH (09:03)
[2022-02-16] MEDS: ZINC SULFATE 220 MG CAPSULE PO SCH (09:03)
[2022-02-16] MEDS: CHOLECALCIFEROL 1,000 UNIT TABLET PO SCH (09:03)
[2022-02-16] MEDS: PANTOPRAZOLE 40 MG TABLET PO SCH (09:04)
[2022-02-16] MEDS: FAMOTIDINE 20 MG TABLET PO SCH ×2 (09:04→22:03)
[2022-02-16] MEDS: DOCUSATE SODIUM 100 MG CAPSULE PO SCH ×2 (09:04→22:03)
[2022-02-16] MEDS: ASCORBIC ACID 500 MG TABLET PO SCH ×2 (09:04→22:03)
[2022-02-16] MEDS: amLODIPine 2.5 MG TABLET PO SCH (09:05)
[2022-02-16] MEDS: THYROID 60 MG TABLET PO SCH (09:06)
[2022-02-16] MEDS: ENOXAPARIN 40 MG/0.4 ML SYRINGE SUBCUT SCH ×2 (09:06→22:03)
[2022-02-16] MEDS: DEXAMETHASONE 4 MG/1 ML VIAL IV SCH (09:07)
[2022-02-16] MEDS: cefTRIAXone 1,000 MG in SODIUM CHLORIDE 0.9% 100 ML IV SCH (09:08)
[2022-02-16] MEDS: AZITHROMYCIN 250 MG TABLET PO SCH (10:16)
[2022-02-16] MEDS: MELATONIN 3 MG TABLET PO SCH (22:02)
[2022-02-17] MEDS: MEPERIDINE 50 MG/1 ML VIAL IM SCH ×6 (05:12→23:36)
[2022-02-17 05:44] LABS: Hemoglobin 9.4 GM/DL (12.0-16.0); Immature Granulocytes % 0.6 %; Immature Granulocytes Absolute 0.04 #; Lymphocytes # 1.2 10*3/uL (1.4-4.0); Lymphocytes % 17.3 % (21.3-54.2); Mean Corpuscular HGB Conc 29.1 GM/DL (32-36); Mean Corpuscular Volume 93.6 FL (87-102); Mean Platelet Volume 11.2 FL (9.6-12.0); Monocytes # 0.3 10*3/uL (0.11-0.8); Monocytes % 4.8 % (1.7-12.7); Neutrophils % 77.3 % (38.7-73.9); Platelet Count 101 T/CUMM (130-400); Red Blood Count 3.45 MC/CUMM (3.8-5.5); Red Cell Distribution Width 15.9 % (9.3-17.3); White Blood Count 6.9 T/CUMM (4-12)
[2022-02-17 05:45] LABS: Hematocrit 32.3 VOL% (35.7-47.0)
[2022-02-17] MEDS: FAMOTIDINE 20 MG TABLET PO SCH ×2 (10:02→21:26)
[2022-02-17] MEDS: DEXAMETHASONE 4 MG/1 ML VIAL IV SCH (10:04)
[2022-02-17] MEDS: ENOXAPARIN 40 MG/0.4 ML SYRINGE SUBCUT SCH ×2 (10:04→21:26)
[2022-02-17] MEDS: ASCORBIC ACID 500 MG TABLET PO SCH ×2 (10:05→21:26)
[2022-02-17] MEDS: CHOLECALCIFEROL 1,000 UNIT TABLET PO SCH (10:06)
[2022-02-17] MEDS: ZINC SULFATE 220 MG CAPSULE PO SCH (10:06)
[2022-02-17] MEDS: AZITHROMYCIN 250 MG TABLET PO SCH (10:06)
[2022-02-17] MEDS: PANTOPRAZOLE 40 MG TABLET PO SCH (10:07)
[2022-02-17] MEDS: CALCIUM (CARBONATE)/VITAMIN D 600 MG-400 UNIT TABLET PO SCH (10:07)
[2022-02-17] MEDS: THYROID 60 MG TABLET PO SCH (10:07)
[2022-02-17] MEDS: amLODIPine 2.5 MG TABLET PO SCH (10:07)
[2022-02-17] MEDS: ERTAPENEM 1,000 MG in SODIUM CHLORIDE 0.9% 100 ML IV SCH (10:08)
[2022-02-17] MEDS: DOCUSATE SODIUM 100 MG CAPSULE PO SCH ×3 (10:59→21:42)
[2022-02-17] MEDS: SODIUM CHLORIDE 0.9% 1,000 ML IV SCH (14:52)
[2022-02-17] MEDS: MELATONIN 3 MG TABLET PO SCH (21:26)
[2022-02-18] MEDS: MEPERIDINE 50 MG/1 ML VIAL IM SCH ×5 (05:12→23:21)
[2022-02-18] MEDS: THYROID 60 MG TABLET PO SCH (09:42)
[2022-02-18] MEDS: DEXAMETHASONE 4 MG/1 ML VIAL IV SCH (09:42)
[2022-02-18] MEDS: AZITHROMYCIN 250 MG TABLET PO SCH (09:43)
[2022-02-18] MEDS: DOCUSATE SODIUM 100 MG CAPSULE PO SCH ×2 (09:43→21:39)
[2022-02-18] MEDS: CALCIUM (CARBONATE)/VITAMIN D 600 MG-400 UNIT TABLET PO SCH (09:43)
[2022-02-18] MEDS: PANTOPRAZOLE 40 MG TABLET PO SCH (09:43)
[2022-02-18] MEDS: ASCORBIC ACID 500 MG TABLET PO SCH ×2 (09:43→21:33)
[2022-02-18] MEDS: CHOLECALCIFEROL 1,000 UNIT TABLET PO SCH (09:43)
[2022-02-18] MEDS: FAMOTIDINE 20 MG TABLET PO SCH ×2 (09:44→21:39)
[2022-02-18] MEDS: ZINC SULFATE 220 MG CAPSULE PO SCH (09:44)
[2022-02-18] MEDS: amLODIPine 2.5 MG TABLET PO SCH (09:44)
[2022-02-18] MEDS: ERTAPENEM 1,000 MG in SODIUM CHLORIDE 0.9% 100 ML IV SCH (09:58)
[2022-02-18] MEDS: SODIUM CHLORIDE 0.9% 1,000 ML IV SCH ×2 (09:58→23:56)
[2022-02-18] MEDS: ENOXAPARIN 40 MG/0.4 ML SYRINGE SUBCUT SCH ×2 (09:59→21:34)
[2022-02-18] MEDS: MELATONIN 3 MG TABLET PO SCH (21:33)
[2022-02-19] MEDS: SODIUM CHLORIDE 0.9% 1,000 ML IV SCH ×2 (01:39→17:45)
[2022-02-19] MEDS: MEPERIDINE 50 MG/1 ML VIAL IM SCH ×5 (06:01→21:48)
[2022-02-19] MEDS: ERTAPENEM 1,000 MG in SODIUM CHLORIDE 0.9% 100 ML IV SCH (11:06)
[2022-02-19] MEDS: CALCIUM (CARBONATE)/VITAMIN D 600 MG-400 UNIT TABLET PO SCH (11:08)
[2022-02-19] MEDS: DEXAMETHASONE 4 MG/1 ML VIAL IV SCH (11:08)
[2022-02-19] MEDS: ENOXAPARIN 40 MG/0.4 ML SYRINGE SUBCUT SCH ×2 (11:08→21:48)
[2022-02-19] MEDS: amLODIPine 2.5 MG TABLET PO SCH (11:08)
[2022-02-19] MEDS: THYROID 60 MG TABLET PO SCH (11:08)
[2022-02-19] MEDS: DOCUSATE SODIUM 100 MG CAPSULE PO SCH ×2 (11:09→21:54)
[2022-02-19] MEDS: CHOLECALCIFEROL 1,000 UNIT TABLET PO SCH (11:09)
[2022-02-19] MEDS: ASCORBIC ACID 500 MG TABLET PO SCH ×2 (11:10→21:47)
[2022-02-19] MEDS: ZINC SULFATE 220 MG CAPSULE PO SCH (11:10)
[2022-02-19] MEDS: FAMOTIDINE 20 MG TABLET PO SCH ×2 (11:10→21:54)
[2022-02-19] MEDS: PANTOPRAZOLE 40 MG TABLET PO SCH (11:10)
[2022-02-19] MEDS: MELATONIN 3 MG TABLET PO SCH (21:47)
[2022-02-20] MEDS: MEPERIDINE 50 MG/1 ML VIAL IM SCH ×4 (05:00→17:10)
[2022-02-20 05:13] LABS: Eosinophils % 0.2 % (0.00-10.9); Hemoglobin 9.4 GM/DL (12.0-16.0); Immature Granulocytes Absolute 0.04 #; Lymphocytes # 1.3 10*3/uL (1.4-4.0); Lymphocytes % 32.1 % (21.3-54.2); Mean Corpuscular HGB Conc 32.4 GM/DL (32-36); Mean Corpuscular Volume 85.3 FL (87-102); Mean Platelet Volume 10.2 FL (9.6-12.0); Monocytes # 0.4 10*3/uL (0.11-0.8); Monocytes % 9.1 % (1.7-12.7); Neutrophils % 57.6 % (38.7-73.9); Platelet Count 146 T/CUMM (130-400); Red Cell Distribution Width 15.1 % (9.3-17.3); White Blood Count 4.2 T/CUMM (4-12)
[2022-02-20 05:35] LABS: Alanine Aminotransferase 37 U/L (13-56); Alkaline Phosphatase 77 U/L (45-117); Aspartate Amino Transferase 30 U/L (0-37); Bilirubin,Total < 0.39 MG/DL (0.20-1.00); Blood Urea Nitrogen 9 MG/DL (7-18); Calcium 8.4 MG/DL (8.5-10.1); Carbon Dioxide 26 MMOL/L (21-32); Chloride 108 MMOL/L (98-107); Glucose 89 MG/DL (74-106); Potassium 2.6 MMOL/L (3.5-5.1); Sodium 143 MMOL/L (136-145); Total Protein 6.2 G/DL (6.4-8.2)
[2022-02-20] MEDS: CALCIUM (CARBONATE)/VITAMIN D 600 MG-400 UNIT TABLET PO SCH (08:38)
[2022-02-20] MEDS: amLODIPine 2.5 MG TABLET PO SCH (08:39)
[2022-02-20] MEDS: THYROID 60 MG TABLET PO SCH (08:39)
[2022-02-20] MEDS: ZINC SULFATE 220 MG CAPSULE PO SCH (08:39)
[2022-02-20] MEDS: CHOLECALCIFEROL 1,000 UNIT TABLET PO SCH (08:40)
[2022-02-20] MEDS: ENOXAPARIN 40 MG/0.4 ML SYRINGE SUBCUT SCH ×2 (08:40→20:25)
[2022-02-20] MEDS: ASCORBIC ACID 500 MG TABLET PO SCH ×2 (08:40→20:25)
[2022-02-20] MEDS: DEXAMETHASONE 4 MG/1 ML VIAL IV SCH (08:40)
[2022-02-20] MEDS: PANTOPRAZOLE 40 MG TABLET PO SCH (08:40)
[2022-02-20] MEDS: DOCUSATE SODIUM 100 MG CAPSULE PO SCH ×2 (08:41→20:25)
[2022-02-20] MEDS: FAMOTIDINE 20 MG TABLET PO SCH ×2 (08:42→20:25)
[2022-02-20] MEDS: ERTAPENEM 1,000 MG in SODIUM CHLORIDE 0.9% 100 ML IV SCH (08:43)
[2022-02-20] MEDS: SODIUM CHLORIDE 0.9% 1,000 ML IV SCH (08:45)
[2022-02-20] MEDS: MELATONIN 3 MG TABLET PO SCH (20:25)
[2022-02-21] MEDS: SODIUM CHLORIDE 0.9% 1,000 ML IV SCH (01:50)
[2022-02-21 05:55] LABS: Calcium 8.7 MG/DL (8.5-10.1); Osmolality,Calculated 276.4 MOS/KG (273-304); Potassium 3.2 MMOL/L (3.5-5.1)
[2022-02-21] MEDS: PANTOPRAZOLE 40 MG TABLET PO SCH (09:42)
[2022-02-21] MEDS: CALCIUM (CARBONATE)/VITAMIN D 600 MG-400 UNIT TABLET PO SCH (09:42)
[2022-02-21] MEDS: CHOLECALCIFEROL 1,000 UNIT TABLET PO SCH (09:42)
[2022-02-21] MEDS: ASCORBIC ACID 500 MG TABLET PO SCH (09:42)
[2022-02-21] MEDS: amLODIPine 2.5 MG TABLET PO SCH (09:42)
[2022-02-21] MEDS: ZINC SULFATE 220 MG CAPSULE PO SCH (09:42)
[2022-02-21] MEDS: THYROID 60 MG TABLET PO SCH (09:43)
[2022-02-21] MEDS: ENOXAPARIN 40 MG/0.4 ML SYRINGE SUBCUT SCH (09:44)
[2022-02-21] MEDS: DOCUSATE SODIUM 100 MG CAPSULE PO SCH (09:44)
[2022-02-21] MEDS: DEXAMETHASONE 4 MG/1 ML VIAL IV SCH (09:45)
[2022-02-21] MEDS: FAMOTIDINE 20 MG TABLET PO SCH (09:47)
[2022-02-21] MEDS: ERTAPENEM 1,000 MG in SODIUM CHLORIDE 0.9% 100 ML IV SCH (09:50)
[2022-02-21] MEDS: POTASSIUM CHLORIDE 20 MEQ TABLET PO PRN ×2 (12:15→14:04)
[2022-02-21] MEDS ORDERED: POTASSIUM CHLORIDE 20 MEQ TABLET PO ONE (15:00)
[2022-02-21 18:21] VITALS: BP 142/64
[2022-02-24] MEDS ORDERED: CYANOCOBALAMIN 1000 MCG/1 ML VIAL IM SCH (09:00)
== END 2022-02-21 18:25 | disposition home health service (06) | DRG 689 ==
LOC: N.ED 15:06 → N.EDINP 19:04 → N.5E 20:14
PROVIDERS: ADMIT Family Medicine; ATTEND Family Medicine

== ENCOUNTER 2022-07-31 18:14 | Inpatient (IN) ==
[2022-07-31 19:42] LABS: RBC,Urine 488 /HPF (0-4)
[2022-07-31 19:45] LABS: Protein,Urine 100 mg/dL (Negative); Urine Appearance Cloudy (Clear); Urine Color Yellow (Yellow)
[2022-07-31 19:46] LABS: Bilirubin,Urine Negative (Negative); Blood, Urine Large mg/dL (Negative); Glucose,Urine (UA) Negative (Negative); Ketones,Urine Negative (Negative); Nitrite,Urine Negative (Negative); Urine Urobilinogen 0.2 eU/dL (<2.0)
[2022-07-31] MEDS ORDERED: SODIUM CHLORIDE 0.9% 1,000 ML IV STA (19:46)
[2022-07-31] MEDS ORDERED: MEROPENEM 500 MG in SODIUM CHLORIDE 0.9% 100 ML IV STA (19:46)
[2022-07-31] MEDS ORDERED: MEPERIDINE 50 MG/1 ML VIAL IV STA (19:50)
[2022-07-31] MEDS ORDERED: PROMETHAZINE INJ 25 MG in SODIUM CHLORIDE 0.9% 50 ML IV STA (19:50)
[2022-07-31 20:45] LABS: Basophils % 0.4 % (0.0-0.8); Eosinophils # 0.1 10*3/uL (0.0-0.87); Eosinophils % 0.7 % (0.00-10.9); Hematocrit 30.2 VOL% (35.7-47.0); Hemoglobin 9.2 GM/DL (12.0-16.0); Immature Granulocytes % 0.4 %; Immature Granulocytes Absolute 0.03 #; Lymphocytes # 1.1 10*3/uL (1.4-4.0); Lymphocytes % 12.9 % (21.3-54.2); Mean Corpuscular HGB Conc 30.5 GM/DL (32-36); Mean Corpuscular Volume 78.9 FL (87-102); Mean Platelet Volume 10.4 FL (9.6-12.0); Monocytes # 0.3 10*3/uL (0.11-0.8); Monocytes % 4.2 % (1.7-12.7); Neutrophils % 81.4 % (38.7-73.9); Platelet Count 211 T/CUMM (130-400); Red Blood Count 3.83 MC/CUMM (3.8-5.5); Red Cell Distribution Width 16.5 % (9.3-17.3); White Blood Count 8.1 T/CUMM (4-12)
[2022-07-31 22:07] LABS: Albumin 3.1 G/DL (3.4-5.0); Bilirubin,Total 0.4 MG/DL (0.20-1.00); Calcium 9.1 MG/DL (8.5-10.1); Osmolality,Calculated 280.4 MOS/KG (273-304); Potassium 3.8 MMOL/L (3.5-5.1); Total Protein 7.8 G/DL (6.4-8.2)
[2022-07-31] MEDS ORDERED: ACETAMINOPHEN 325 MG TABLET PO PRN (23:55)
[2022-08-01] MEDS: SODIUM CHLORIDE 0.45% 1,000 ML IV SCH ×3 (01:48→20:09)
[2022-08-01] MEDS ORDERED: MEPERIDINE 50 MG/1 ML VIAL IV ONE (01:49)
[2022-08-01] MEDS: MEROPENEM 500 MG in SODIUM CHLORIDE 0.9% 100 ML IV SCH ×3 (06:08→20:12)
[2022-08-01 06:19] LABS: Basophils % 0.5 % (0.0-0.8); Eosinophils # 0.1 10*3/uL (0.0-0.87); Eosinophils % 1.9 % (0.00-10.9); Hematocrit 26.3 VOL% (35.7-47.0); Immature Granulocytes % 0.5 %; Immature Granulocytes Absolute 0.03 #; Lymphocytes # 1.4 10*3/uL (1.4-4.0); Lymphocytes % 21.7 % (21.3-54.2); Mean Corpuscular HGB Conc 30.4 GM/DL (32-36); Mean Corpuscular Volume 80.9 FL (87-102); Mean Platelet Volume 8.8 FL (9.6-12.0); Monocytes # 0.5 10*3/uL (0.11-0.8); Neutrophils % 67.4 % (38.7-73.9); Platelet Count 239 T/CUMM (130-400); Red Blood Count 3.25 MC/CUMM (3.8-5.5); Red Cell Distribution Width 16.5 % (9.3-17.3); White Blood Count 6.4 T/CUMM (4-12)
[2022-08-01 06:38] LABS: Calcium 8.2 MG/DL (8.5-10.1); Osmolality,Calculated 277.5 MOS/KG (273-304); Potassium 3.8 MMOL/L (3.5-5.1)
[2022-08-01] MEDS: MEPERIDINE 50 MG/1 ML VIAL IV PRN ×2 (08:55→20:11)
[2022-08-01] MEDS: PANTOPRAZOLE 40 MG TABLET PO SCH (08:55)
[2022-08-01] MEDS ORDERED: traMADol 50 MG TABLET PO PRN (13:33)
[2022-08-01] MEDS ORDERED: NON-FORMULARY MEDICATION (Aspirin-Acetaminophen-Caffeine [Excedrin Migraine] 250-250-65 mg PO PRN (13:33)
[2022-08-01] MEDS ORDERED: MORPHINE 2 MG/1 ML SYRINGE IV ONE (14:25)
[2022-08-01] MEDS ORDERED: diphenhydrAMINE CAP 25 MG CAPSULE PO ONE (14:28)
[2022-08-01] MEDS ORDERED: diphenhydrAMINE 50 MG/1 ML VIAL IV ONE (15:19)
[2022-08-02] MEDS: SODIUM CHLORIDE 0.45% 1,000 ML IV SCH ×5 (02:43→17:05)
[2022-08-02] MEDS: MEROPENEM 500 MG in SODIUM CHLORIDE 0.9% 100 ML IV SCH ×3 (05:01→20:59)
[2022-08-02 05:39] LABS: Alanine Aminotransferase < 6 U/L (13-56); Albumin 2.8 G/DL (3.4-5.0); Alkaline Phosphatase 76 U/L (45-117); Aspartate Amino Transferase 16 U/L (0-37); Bilirubin,Total < 0.39 MG/DL (0.20-1.00); Blood Urea Nitrogen 9 MG/DL (7-18); Calcium 8.7 MG/DL (8.5-10.1); Carbon Dioxide 18 MMOL/L (21-32); Chloride 110 MMOL/L (98-107); Glucose 92 MG/DL (74-106); Osmolality,Calculated 271.8 MOS/KG (273-304); Potassium 3.5 MMOL/L (3.5-5.1); Sodium 137 MMOL/L (136-145); Total Protein 7.3 G/DL (6.4-8.2)
[2022-08-02 05:49] LABS: Basophils % 0.6 % (0.0-0.8); Eosinophils # 0.2 10*3/uL (0.0-0.87); Eosinophils % 4.7 % (0.00-10.9); Hemoglobin 9.8 GM/DL (12.0-16.0); Immature Granulocytes % 0.8 %; Immature Granulocytes Absolute 0.04 #; Lymphocytes # 1.1 10*3/uL (1.4-4.0); Lymphocytes % 22.7 % (21.3-54.2); Mean Corpuscular HGB Conc 28.7 GM/DL (32-36); Mean Corpuscular Volume 85.7 FL (87-102); Mean Platelet Volume 9.8 FL (9.6-12.0); Monocytes # 0.4 10*3/uL (0.11-0.8); Monocytes % 8.6 % (1.7-12.7); Neutrophils % 62.6 % (38.7-73.9); Platelet Count 211 T/CUMM (130-400); Red Blood Count 3.99 MC/CUMM (3.8-5.5); Red Cell Distribution Width 16.4 % (9.3-17.3); White Blood Count 4.9 T/CUMM (4-12)
[2022-08-02 05:51] LABS: Hematocrit 34.2 VOL% (35.7-47.0)
[2022-08-02] MEDS: MEPERIDINE 50 MG/1 ML VIAL IV PRN (08:22)
[2022-08-02] MEDS: PROMETHAZINE 25 MG TABLET PO PRN ×2 (08:23→22:11)
[2022-08-02] MEDS: PANTOPRAZOLE 40 MG TABLET PO SCH (08:24)
[2022-08-02] MEDS: THYROID 60 MG TABLET PO SCH ×2 (08:24→08:25)
[2022-08-02] MEDS: MORPHINE 2 MG/1 ML SYRINGE IV PRN ×3 (13:35→21:00)
[2022-08-02] MEDS: diphenhydrAMINE 50 MG/1 ML VIAL IV PRN ×3 (13:36→21:00)
[2022-08-03] MEDS: diphenhydrAMINE 50 MG/1 ML VIAL IV PRN ×4 (04:03→21:27)
[2022-08-03] MEDS: MORPHINE 2 MG/1 ML SYRINGE IV PRN ×4 (04:03→21:28)
[2022-08-03] MEDS: SODIUM CHLORIDE 0.45% 1,000 ML IV SCH ×5 (05:21→21:25)
[2022-08-03] MEDS: MEROPENEM 500 MG in SODIUM CHLORIDE 0.9% 100 ML IV SCH ×3 (05:36→21:24)
[2022-08-03] MEDS: PANTOPRAZOLE 40 MG TABLET PO SCH (08:55)
[2022-08-03] MEDS: THYROID 60 MG TABLET PO SCH ×2 (08:55)
[2022-08-03] MEDS: PROMETHAZINE 25 MG TABLET PO PRN (21:27)
[2022-08-04 04:54] LABS: Basophils % 0.4 % (0.0-0.8); Eosinophils # 0.2 10*3/uL (0.0-0.87); Eosinophils % 4.1 % (0.00-10.9); Hematocrit 27.2 VOL% (35.7-47.0); Hemoglobin 8.2 GM/DL (12.0-16.0); Immature Granulocytes % 0.4 %; Immature Granulocytes Absolute 0.02 #; Lymphocytes # 1.6 10*3/uL (1.4-4.0); Lymphocytes % 34.5 % (21.3-54.2); Mean Corpuscular HGB Conc 30.1 GM/DL (32-36); Mean Platelet Volume 10.9 FL (9.6-12.0); Monocytes # 0.4 10*3/uL (0.11-0.8); Monocytes % 9.2 % (1.7-12.7); Neutrophils % 51.4 % (38.7-73.9); Platelet Count 179 T/CUMM (130-400); Red Cell Distribution Width 16.1 % (9.3-17.3); White Blood Count 4.7 T/CUMM (4-12)
[2022-08-04 05:20] LABS: Alanine Aminotransferase < 6 U/L (13-56); Albumin 2.6 G/DL (3.4-5.0); Alkaline Phosphatase 69 U/L (45-117); Aspartate Amino Transferase 14 U/L (0-37); Bilirubin,Total < 0.39 MG/DL (0.20-1.00); Blood Urea Nitrogen 7 MG/DL (7-18); Calcium 8.7 MG/DL (8.5-10.1); Carbon Dioxide 27 MMOL/L (21-32); Chloride 107 MMOL/L (98-107); Glucose 100 MG/DL (74-106); Osmolality,Calculated 276.4 MOS/KG (273-304); Potassium 2.9 MMOL/L (3.5-5.1); Sodium 140 MMOL/L (136-145); Total Protein 6.6 G/DL (6.4-8.2)
[2022-08-04] MEDS: MEROPENEM 500 MG in SODIUM CHLORIDE 0.9% 100 ML IV SCH ×3 (06:04→21:12)
[2022-08-04] MEDS: PROMETHAZINE 25 MG TABLET PO PRN (06:04)
[2022-08-04] MEDS: SODIUM CHLORIDE 0.45% 1,000 ML IV SCH ×3 (06:05→19:55)
[2022-08-04] MEDS: diphenhydrAMINE 50 MG/1 ML VIAL IV PRN ×3 (06:05→19:58)
[2022-08-04] MEDS: MORPHINE 2 MG/1 ML SYRINGE IV PRN ×3 (06:05→19:59)
[2022-08-04] MEDS: POTASSIUM CHLORIDE RIDER 10 MEQ/100 ML PREMIX IV PRN ×5 (07:03→19:58)
[2022-08-04] MEDS: LACTATED RINGERS 1,000 ML IV SCH (08:45)
[2022-08-04] MEDS ORDERED: propofoL 200 MG/20 ML VIAL IV ONE (09:30)
[2022-08-04] MEDS ORDERED: LIDOCAINE 2% 5 ML VIAL ONE (09:30)
[2022-08-04] MEDS: THYROID 60 MG TABLET PO SCH ×2 (10:41)
[2022-08-04] MEDS: FLUCONAZOLE 100 MG TABLET PO SCH (10:47)
[2022-08-04] MEDS: PANTOPRAZOLE 40 MG TABLET PO SCH ×2 (10:47→20:11)
[2022-08-05] MEDS: SODIUM CHLORIDE 0.45% 1,000 ML IV SCH ×3 (01:38→20:03)
[2022-08-05] MEDS: MORPHINE 2 MG/1 ML SYRINGE IV PRN ×3 (04:28→19:48)
[2022-08-05] MEDS: diphenhydrAMINE 50 MG/1 ML VIAL IV PRN ×2 (04:29→19:47)
[2022-08-05] MEDS: MEROPENEM 500 MG in SODIUM CHLORIDE 0.9% 100 ML IV SCH ×3 (05:46→20:02)
[2022-08-05] MEDS: THYROID 60 MG TABLET PO SCH ×2 (08:42)
[2022-08-05] MEDS: FLUCONAZOLE 100 MG TABLET PO SCH (08:43)
[2022-08-05] MEDS: PANTOPRAZOLE 40 MG TABLET PO SCH ×2 (08:43→20:02)
[2022-08-05] MEDS: LACTATED RINGERS 1,000 ML IV SCH (10:20)
[2022-08-06] MEDS: SODIUM CHLORIDE 0.45% 1,000 ML IV SCH ×3 (01:51→19:45)
[2022-08-06] MEDS: MEROPENEM 500 MG in SODIUM CHLORIDE 0.9% 100 ML IV SCH ×3 (03:59→20:00)
[2022-08-06] MEDS: MORPHINE 2 MG/1 ML SYRINGE IV PRN ×2 (05:42→10:36)
[2022-08-06] MEDS: diphenhydrAMINE 50 MG/1 ML VIAL IV PRN (05:42)
[2022-08-06] MEDS: FLUCONAZOLE 100 MG TABLET PO SCH (08:24)
[2022-08-06] MEDS: THYROID 60 MG TABLET PO SCH ×2 (08:24→08:25)
[2022-08-06] MEDS: PANTOPRAZOLE 40 MG TABLET PO SCH ×2 (08:25→20:00)
[2022-08-07] MEDS: MEROPENEM 500 MG in SODIUM CHLORIDE 0.9% 100 ML IV SCH ×2 (04:15→05:20)
[2022-08-07] MEDS: SODIUM CHLORIDE 0.45% 1,000 ML IV SCH ×2 (04:15→12:54)
[2022-08-07 05:03] LABS: Basophils % 0.5 % (0.0-0.8); Eosinophils # 0.1 10*3/uL (0.0-0.87); Eosinophils % 3.5 % (0.00-10.9); Hematocrit 29.1 VOL% (35.7-47.0); Hemoglobin 8.6 GM/DL (12.0-16.0); Immature Granulocytes % 0.8 %; Immature Granulocytes Absolute 0.03 #; Lymphocytes # 1.7 10*3/uL (1.4-4.0); Lymphocytes % 43.7 % (21.3-54.2); Mean Corpuscular HGB Conc 29.6 GM/DL (32-36); Monocytes # 0.3 10*3/uL (0.11-0.8); Monocytes % 7.8 % (1.7-12.7); Neutrophils % 43.7 % (38.7-73.9); Platelet Count 225 T/CUMM (130-400); Red Blood Count 3.55 MC/CUMM (3.8-5.5); Red Cell Distribution Width 16.4 % (9.3-17.3)
[2022-08-07 05:24] LABS: Osmolality,Calculated 279.3 MOS/KG (273-304)
[2022-08-07] MEDS: THYROID 60 MG TABLET PO SCH ×2 (09:01→09:02)
[2022-08-07] MEDS: FLUCONAZOLE 100 MG TABLET PO SCH (09:02)
[2022-08-07] MEDS: PANTOPRAZOLE 40 MG TABLET PO SCH (09:03)
[2022-08-07 09:17] VITALS: BP 167/81
== END 2022-08-07 12:53 | disposition home or self-care (01) | DRG 384 ==
LOC: N.ED 18:14 → N.2E 18:14
PROVIDERS: ADMIT Family Medicine; ATTEND Family Medicine

== ENCOUNTER 2022-08-08 09:47 | Inpatient (IN) ==
[2022-08-08] MEDS ORDERED: diphenhydrAMINE 50 MG/1 ML VIAL IV STA (10:38)
[2022-08-08] MEDS ORDERED: MORPHINE 10 MG/1 ML VIAL IV STA (10:38)
[2022-08-08] MEDS ORDERED: SODIUM CHLORIDE 0.9% 500 ML IV STA (10:39)
[2022-08-08] MEDS ORDERED: PROMETHAZINE INJ 25 MG in SODIUM CHLORIDE 0.9% 50 ML IV STA (10:39)
[2022-08-08] MEDS ORDERED: MORPHINE 2 MG/1 ML SYRINGE ONE (10:45)
[2022-08-08] MEDS ORDERED: PROMETHAZINE 25 MG/1 ML VIAL ONE (10:45)
[2022-08-08 11:31] LABS: Basophils % 0.8 % (0.0-0.8); Eosinophils # 0.1 10*3/uL (0.0-0.87); Eosinophils % 1.7 % (0.00-10.9); Hematocrit 31.4 VOL% (35.7-47.0); Hemoglobin 9.5 GM/DL (12.0-16.0); Immature Granulocytes Absolute 0.05 #; Lymphocytes # 1.6 10*3/uL (1.4-4.0); Mean Corpuscular HGB Conc 30.3 GM/DL (32-36); Mean Corpuscular Volume 80.1 FL (87-102); Mean Platelet Volume 9.2 FL (9.6-12.0); Monocytes # 0.3 10*3/uL (0.11-0.8); Monocytes % 5.9 % (1.7-12.7); Neutrophils % 59.6 % (38.7-73.9); Platelet Count 261 T/CUMM (130-400); Red Blood Count 3.92 MC/CUMM (3.8-5.5); Red Cell Distribution Width 16.5 % (9.3-17.3); White Blood Count 5.3 T/CUMM (4-12)
[2022-08-08 11:52] LABS: Alanine Aminotransferase < 6 U/L (13-56); Albumin 3.2 G/DL (3.4-5.0); Alkaline Phosphatase 76 U/L (45-117); Aspartate Amino Transferase 16 U/L (0-37); Bilirubin,Total < 0.39 MG/DL (0.20-1.00); Blood Urea Nitrogen 11 MG/DL (7-18); Calcium 9.3 MG/DL (8.5-10.1); Carbon Dioxide 28 MMOL/L (21-32); Chloride 102 MMOL/L (98-107); Glucose 104 MG/DL (74-106); Osmolality,Calculated 273.7 MOS/KG (273-304); Potassium 3.4 MMOL/L (3.5-5.1); Sodium 138 MMOL/L (136-145); Total Protein 7.4 G/DL (6.4-8.2)
[2022-08-08 12:13] LABS: Mucus,Urine Occasional /LPF (Occasional); Protein,Urine >=300 mg/dL (Negative); RBC,Urine 112 /HPF (0-4); Urine Appearance Slightly Hazy (Clear); Urine Color Yellow (Yellow)
[2022-08-08 12:14] LABS: Bilirubin,Urine Negative (Negative); Blood, Urine Large mg/dL (Negative); Glucose,Urine (UA) Negative (Negative); Ketones,Urine Negative (Negative); Nitrite,Urine Negative (Negative); Urine Urobilinogen 0.2 eU/dL (<2.0)
[2022-08-08] MEDS ORDERED: PROMETHAZINE 25 MG/1 ML VIAL IM PRN (15:13)
[2022-08-08] MEDS ORDERED: ACETAMINOPHEN 325 MG TABLET PO PRN (15:13)
[2022-08-08] MEDS: SODIUM CHLORIDE 0.9% 1,000 ML IV SCH (15:45)
[2022-08-08] MEDS ORDERED: MORPHINE 2 MG/1 ML SYRINGE IV ONE (16:44)
[2022-08-08] MEDS ORDERED: NON-FORMULARY MEDICATION (Aspirin-Acetaminophen-Caffeine [Excedrin Migraine] 250-250-65 mg PO PRN (16:59)
[2022-08-08] MEDS: MEROPENEM 500 MG in SODIUM CHLORIDE 0.9% 100 ML IV SCH (20:32)
[2022-08-08] MEDS: DOCUSATE SODIUM 100 MG CAPSULE PO SCH (20:33)
[2022-08-08] MEDS ORDERED: D MANNOSE 500 MG PO SCH (21:00)
[2022-08-09] MEDS: MEROPENEM 500 MG in SODIUM CHLORIDE 0.9% 100 ML IV SCH ×4 (00:27→20:27)
[2022-08-09] MEDS: SODIUM CHLORIDE 0.9% 1,000 ML IV SCH ×3 (03:46→16:01)
[2022-08-09] MEDS: MORPHINE 2 MG/1 ML SYRINGE IV PRN ×3 (06:38→18:59)
[2022-08-09] MEDS: diphenhydrAMINE 50 MG/1 ML VIAL IV PRN ×3 (06:39→18:59)
[2022-08-09] MEDS ORDERED: THYROID 30 MG PO SCH (09:00)
[2022-08-09] MEDS: DOCUSATE SODIUM 100 MG CAPSULE PO SCH ×2 (09:33→20:27)
[2022-08-09] MEDS: CALCIUM (CARBONATE)/VITAMIN D 600 MG-400 UNIT TABLET PO SCH (09:33)
[2022-08-09] MEDS: PANTOPRAZOLE 40 MG TABLET PO SCH (09:33)
[2022-08-09] MEDS: THYROID 60 MG TABLET PO SCH (09:33)
[2022-08-10] MEDS: MEROPENEM 500 MG in SODIUM CHLORIDE 0.9% 100 ML IV SCH ×4 (04:02→20:59)
[2022-08-10] MEDS: SODIUM CHLORIDE 0.9% 1,000 ML IV SCH ×3 (04:02→18:49)
[2022-08-10] MEDS: diphenhydrAMINE 50 MG/1 ML VIAL IV PRN ×2 (06:31→13:01)
[2022-08-10] MEDS: MORPHINE 2 MG/1 ML SYRINGE IV PRN ×3 (06:32→20:59)
[2022-08-10] MEDS: PANTOPRAZOLE 40 MG TABLET PO SCH (08:29)
[2022-08-10] MEDS: metroNIDAZOLE 500 MG TABLET PO SCH ×3 (08:29→20:58)
[2022-08-10] MEDS: CALCIUM (CARBONATE)/VITAMIN D 600 MG-400 UNIT TABLET PO SCH (08:30)
[2022-08-10] MEDS: THYROID 60 MG TABLET PO SCH (08:30)
[2022-08-10] MEDS: DOCUSATE SODIUM 100 MG CAPSULE PO SCH ×2 (08:31→20:58)
[2022-08-10] MEDS: diphenhydrAMINE CAP 25 MG CAPSULE PO PRN (20:59)
[2022-08-11] MEDS: SODIUM CHLORIDE 0.9% 1,000 ML IV SCH ×3 (00:27→18:40)
[2022-08-11] MEDS: MEROPENEM 500 MG in SODIUM CHLORIDE 0.9% 100 ML IV SCH ×4 (02:33→21:24)
[2022-08-11 08:22] LABS: Basophils % 0.8 % (0.0-0.8); Eosinophils # 0.1 10*3/uL (0.0-0.87); Eosinophils % 3.6 % (0.00-10.9); Hematocrit 30.7 VOL% (35.7-47.0); Hemoglobin 9.2 GM/DL (12.0-16.0); Immature Granulocytes % 0.5 %; Immature Granulocytes Absolute 0.02 #; Lymphocytes # 1.3 10*3/uL (1.4-4.0); Lymphocytes % 32.6 % (21.3-54.2); Mean Corpuscular Volume 80.8 FL (87-102); Mean Platelet Volume 9.7 FL (9.6-12.0); Monocytes # 0.3 10*3/uL (0.11-0.8); Monocytes % 7.3 % (1.7-12.7); Neutrophils % 55.2 % (38.7-73.9); Platelet Count 203 T/CUMM (130-400); Red Cell Distribution Width 16.4 % (9.3-17.3); White Blood Count 3.9 T/CUMM (4-12)
[2022-08-11 08:40] LABS: Alanine Aminotransferase < 6 U/L (13-56); Albumin 2.8 G/DL (3.4-5.0); Alkaline Phosphatase 70 U/L (45-117); Aspartate Amino Transferase 18 U/L (0-37); Blood Urea Nitrogen 5 MG/DL (7-18); Calcium 8.8 MG/DL (8.5-10.1); Carbon Dioxide 31 MMOL/L (21-32); Chloride 108 MMOL/L (98-107); Glucose 91 MG/DL (74-106); Potassium 3.2 MMOL/L (3.5-5.1); Sodium 143 MMOL/L (136-145); Total Protein 6.3 G/DL (6.4-8.2)
[2022-08-11] MEDS: PANTOPRAZOLE 40 MG TABLET PO SCH (08:50)
[2022-08-11] MEDS: THYROID 60 MG TABLET PO SCH (08:50)
[2022-08-11] MEDS: metroNIDAZOLE 500 MG TABLET PO SCH ×3 (08:50→21:21)
[2022-08-11] MEDS: CALCIUM (CARBONATE)/VITAMIN D 600 MG-400 UNIT TABLET PO SCH (08:50)
[2022-08-11] MEDS: MORPHINE 2 MG/1 ML SYRINGE IV PRN ×3 (08:51→21:23)
[2022-08-11] MEDS: DOCUSATE SODIUM 100 MG CAPSULE PO SCH ×2 (08:51→21:20)
[2022-08-11] MEDS: diphenhydrAMINE 50 MG/1 ML VIAL IV PRN ×2 (08:52→14:45)
[2022-08-11 09:26] LABS: Sedimentation Rate-Westergren 60 MM/HR (0-30)
[2022-08-11] MEDS: POTASSIUM CHLORIDE 20 MEQ TABLET PO PRN ×2 (14:02→17:21)
[2022-08-11] MEDS: BISACODYL 10 MG SUPP RECTAL ONE ×2 (17:22→17:32)
[2022-08-11] MEDS: diphenhydrAMINE CAP 25 MG CAPSULE PO PRN (21:22)
[2022-08-12] MEDS: SODIUM CHLORIDE 0.9% 1,000 ML IV SCH ×3 (02:43→20:56)
[2022-08-12] MEDS: diphenhydrAMINE 50 MG/1 ML VIAL IV PRN ×2 (02:44→21:05)
[2022-08-12] MEDS: MEROPENEM 500 MG in SODIUM CHLORIDE 0.9% 100 ML IV SCH ×4 (02:44→20:58)
[2022-08-12] MEDS: MORPHINE 2 MG/1 ML SYRINGE IV PRN ×4 (02:45→21:08)
[2022-08-12] MEDS: POTASSIUM CHLORIDE 20 MEQ TABLET PO PRN (06:00)
[2022-08-12] MEDS ORDERED: SODIUM PHOSPHATE ENEMA 133 ML BOTTLE RECTAL ONE (07:00)
[2022-08-12] MEDS: PANTOPRAZOLE 40 MG TABLET PO SCH (08:54)
[2022-08-12] MEDS: CALCIUM (CARBONATE)/VITAMIN D 600 MG-400 UNIT TABLET PO SCH (08:54)
[2022-08-12] MEDS: DOCUSATE SODIUM 100 MG CAPSULE PO SCH ×2 (08:54→20:59)
[2022-08-12] MEDS: THYROID 60 MG TABLET PO SCH (08:54)
[2022-08-12] MEDS: metroNIDAZOLE 500 MG TABLET PO SCH ×3 (08:55→20:59)
[2022-08-13] MEDS: MEROPENEM 500 MG in SODIUM CHLORIDE 0.9% 100 ML IV SCH ×4 (03:26→21:27)
[2022-08-13] MEDS: SODIUM CHLORIDE 0.9% 1,000 ML IV SCH (05:42)
[2022-08-13] MEDS: diphenhydrAMINE 50 MG/1 ML VIAL IV PRN ×3 (05:47→21:18)
[2022-08-13] MEDS: MORPHINE 2 MG/1 ML SYRINGE IV PRN ×3 (05:49→21:22)
[2022-08-13] MEDS: metroNIDAZOLE 500 MG TABLET PO SCH ×3 (09:08→21:26)
[2022-08-13] MEDS: PANTOPRAZOLE 40 MG TABLET PO SCH (09:08)
[2022-08-13] MEDS: DOCUSATE SODIUM 100 MG CAPSULE PO SCH ×2 (09:08→21:27)
[2022-08-13] MEDS: CALCIUM (CARBONATE)/VITAMIN D 600 MG-400 UNIT TABLET PO SCH (09:08)
[2022-08-13] MEDS: THYROID 60 MG TABLET PO SCH (09:09)
[2022-08-13] MEDS: POTASSIUM CHLORIDE 10 MEQ TABLET PO SCH (12:18)
[2022-08-13] MEDS: POTASSIUM CHLORIDE 20 MEQ TABLET PO PRN ×4 (12:19→21:26)
[2022-08-14] MEDS: SODIUM CHLORIDE 0.9% 1,000 ML IV SCH ×5 (00:05→22:30)
[2022-08-14] MEDS: MEROPENEM 500 MG in SODIUM CHLORIDE 0.9% 100 ML IV SCH ×3 (03:34→17:55)
[2022-08-14] MEDS: diphenhydrAMINE 50 MG/1 ML VIAL IV PRN ×3 (04:50→22:21)
[2022-08-14] MEDS: MORPHINE 2 MG/1 ML SYRINGE IV PRN ×3 (04:54→22:25)
[2022-08-14 05:29] LABS: Calcium 8.3 MG/DL (8.5-10.1); Osmolality,Calculated 281.1 MOS/KG (273-304); Potassium 4.3 MMOL/L (3.5-5.1)
[2022-08-14] MEDS: POTASSIUM CHLORIDE 10 MEQ TABLET PO SCH (09:27)
[2022-08-14] MEDS: PANTOPRAZOLE 40 MG TABLET PO SCH (09:27)
[2022-08-14] MEDS: CALCIUM (CARBONATE)/VITAMIN D 600 MG-400 UNIT TABLET PO SCH (09:27)
[2022-08-14] MEDS: metroNIDAZOLE 500 MG TABLET PO SCH ×3 (09:27→22:29)
[2022-08-14] MEDS: THYROID 60 MG TABLET PO SCH (09:27)
[2022-08-14] MEDS: DOCUSATE SODIUM 100 MG CAPSULE PO SCH ×2 (09:31→22:29)
[2022-08-14] MEDS: POLYETHYLENE GLYCOL POWDER 17 GM PACK PO SCH (11:58)
[2022-08-15] MEDS: MEROPENEM 500 MG in SODIUM CHLORIDE 0.9% 100 ML IV SCH ×2 (00:28→06:04)
[2022-08-15] MEDS: diphenhydrAMINE 50 MG/1 ML VIAL IV PRN (03:24)
[2022-08-15] MEDS: MORPHINE 2 MG/1 ML SYRINGE IV PRN (03:26)
[2022-08-15 08:19] VITALS: BP 154/96
[2022-08-15] MEDS: POLYETHYLENE GLYCOL POWDER 17 GM PACK PO SCH (09:07)
[2022-08-15] MEDS: metroNIDAZOLE 500 MG TABLET PO SCH (09:08)
[2022-08-15] MEDS: CALCIUM (CARBONATE)/VITAMIN D 600 MG-400 UNIT TABLET PO SCH (09:08)
[2022-08-15] MEDS: THYROID 60 MG TABLET PO SCH (09:08)
[2022-08-15] MEDS: DOCUSATE SODIUM 100 MG CAPSULE PO SCH (09:08)
[2022-08-15] MEDS: POTASSIUM CHLORIDE 10 MEQ TABLET PO SCH (09:08)
[2022-08-15] MEDS: PANTOPRAZOLE 40 MG TABLET PO SCH (09:08)
== END 2022-08-15 11:45 | disposition home health service (06) | DRG 690 ==
LOC: N.EDINP 09:47 → N.ED 09:47 → N.2E 17:37
PROVIDERS: ADMIT Family Medicine; ATTEND Family Medicine